=== PATIENT | female | born 1935 | race Caucasian/White ===

== ENCOUNTER 2017-06-06 16:36 | Observation (INO) | payer OTHER ==
--- NOTE | 2017-06-06 18:06 | RAD ---
Examination: AP chest History: Chest pain SOB Findings: Normal heart size with essentially clear lungs and pleural spaces. Diffuse density at the r ight lung base is considered to be an artifact. Severe right shoulder arthropathy. Impression: No acute abnormality demonstrated. Reported By:
[2017-06-06 18:14] LABS: BASOPHILS % (AUTO) 0.4 % (0.2-1.0); EOSINOPHILS % (AUTO) 0.1 % (0.9-2.9); HEMATOCRIT 42.9 % (36.0-47.0); LYMPHOCYTES # (AUTO) 0.7 X10^3/uL (1.3-2.9); LYMPHOCYTES % (AUTO) 6.7 % (21.0-51.0); MEAN CORPUSCULAR HEMOGLOBIN 28.3 pg (27.0-34.0); MEAN CORPUSCULAR HGB CONC 34.9 g/dL (33.0-35.0); MEAN PLATELET VOLUME 8.2 fL (7.4-11.0); MONOCYTES # (AUTO) 0.1 x10^3/uL (0.3-0.8); MONOCYTES % (AUTO) 0.8 % (0.0-13.0); NEUTROPHILS # (AUTO) 9.4 x10^3/uL (2.2-4.8); PLATELET COUNT 351 X10^3/uL (150.0-450.0); RED CELL DISTRIBUTION WIDTH 13.8 % (11.6-16.5); WHITE BLOOD COUNT 10.2 X10^3/uL (3.6-10.0)
[2017-06-06 18:29] LABS: PLATELET MORPHOLOGY COMMENT NORMAL (NORMAL)
[2017-06-06 19:01] LABS: TROPONIN I < 0.02 ng/mL (0-1.5); eGFR BLACK RACES > 60 (>60)
[2017-06-06] MEDS: COZAAR PO SCH (19:11)
[2017-06-06] MEDS: NS 1000 ML 1,000 ML IV SCH (19:12)
[2017-06-06] MEDS: PLAVIX PO SCH (19:20)
[2017-06-06 19:23] LABS: ALANINE AMINOTRANSFERASE 16 Units/L (12-78); ALBUMIN 4.1 g/dL (3.4-5.0); ALKALINE PHOSPHATASE 126 Units/L (46-116); ASPARTATE AMINO TRANSFERASE 18 Units/L (15-37); BLOOD UREA NITROGEN 16 mg/dL (7-18); CALCIUM 9.9 mg/dL (8.5-10.1); CARBON DIOXIDE 21.9 mmol/L (21-32); CHLORIDE 97 mmol/L (98-107); CKMB % 1.9 % (<4); COR NA(FOR HYPERGLY) 135 mmol/L (136-145); CREATINE KINASE 52 Units/L (26-192); CREATINE KINASE MB < 1.0 ng/mL (0-4.0); CREATININE 1.09 mg/dL (0.55-1.02); SODIUM 134 mmol/L (136-145); TOTAL PROTEIN 8.1 g/dL (6.4-8.2); eGFR NON BLACK RACES 51 (>60)
[2017-06-06 19:29] VITALS: BMI 23.1
[2017-06-06] MEDS: ECOTRIN TAB 325 MG PO SCH (19:44)
[2017-06-06] MEDS: HYDROCHLOROTHIAZIDE 12.5 MG CAP PO SCH (19:47)
[2017-06-06] MEDS: PEPCID TAB 20 MG PO SCH (20:16)
[2017-06-06 21:57] LABS: CKMB % 2.1 % (<4); CREATINE KINASE 47 Units/L (26-192); CREATINE KINASE MB < 1.0 ng/mL (0-4.0); TROPONIN I < 0.02 ng/mL (0-1.5)
[2017-06-06 23:53] LABS: BILIRUBIN,URINE NEGATIVE (NEGATIVE); BLOOD/HEMOGLOBIN,URINE 2+ (NEGATIVE); GLUCOSE, URINE 3+ (NEGATIVE); KETONES,URINE 3+ (NEGATIVE); LEUKOCYTE ESTERASE ,URINE 1+ (NEGATIVE); NITRITES,URINE NEGATIVE (NEGATIVE); PROTEIN,URINE NEGATIVE (NEGATIVE); UROBILINOGEN,URINE NORMAL (NORMAL)
[2017-06-06 23:57] LABS: APPEARANCE,URINE SLIGHTLY HAZY (CLEAR); BACTERIA,URINE 3+ /HPF (NEGATIVE); COLOR,URINE YELLOW (YELLOW); SQUAMOUS EPITHELIAL CELL,UR FEW /HPF (NEGATIVE)
[2017-06-07 01:46] LABS: CRYPTOSPORIDIUM PARVUM ANTIGEN NEGATIVE (NEGATIVE); GIARDIA LAMBLIA ANTIGEN NEGATIVE (NEGATIVE); STOOL FOR WBC NEGATIVE (NEGATIVE)
[2017-06-07 02:18] LABS: CKMB % 2.4 % (<4); CREATINE KINASE 50 Units/L (26-192); CREATINE KINASE MB 1.2 ng/mL (0-4.0); TROPONIN I < 0.02 ng/mL (0-1.5)
[2017-06-07 05:27] LABS: BASOPHILS % (AUTO) 0.1 % (0.2-1.0); HEMATOCRIT 37.9 % (36.0-47.0); LYMPHOCYTES % (AUTO) 14.9 % (21.0-51.0); MEAN CORPUSCULAR HEMOGLOBIN 27.9 pg (27.0-34.0); MEAN CORPUSCULAR HGB CONC 34.2 g/dL (33.0-35.0); MEAN CORPUSCULAR VOLUME 81.5 fL (80.0-100.0); MEAN PLATELET VOLUME 8.2 fL (7.4-11.0); MONOCYTES # (AUTO) 0.2 x10^3/uL (0.3-0.8); MONOCYTES % (AUTO) 3.2 % (0.0-13.0); NEUTROPHILS # (AUTO) 5.7 x10^3/uL (2.2-4.8); NEUTROPHILS % (AUTO) 81.8 % (42.0-75.0); PLATELET COUNT 312 X10^3/uL (150.0-450.0); RED BLOOD COUNT 4.66 X10^6/uL (3.5-5.4); RED CELL DISTRIBUTION WIDTH 13.4 % (11.6-16.5)
[2017-06-07 05:46] LABS: ALANINE AMINOTRANSFERASE 14 Units/L (12-78); ALBUMIN 3.1 g/dL (3.4-5.0); ALKALINE PHOSPHATASE 100 Units/L (46-116); ASPARTATE AMINO TRANSFERASE 16 Units/L (15-37); BLOOD UREA NITROGEN 18 mg/dL (7-18); CALCIUM 8.5 mg/dL (8.5-10.1); CARBON DIOXIDE 21.9 mmol/L (21-32); CHLORIDE 98 mmol/L (98-107); CHOL/HDL RATIO 3.1 (0.0-5.0); CHOLESTEROL 179 mg/dL (0-200); COR CA(FOR HYPOALB) 9.2 mg/dL (8.5-10.1); COR NA(FOR HYPERGLY) 137 mmol/L (136-145); CREATININE 1.03 mg/dL (0.55-1.02); HDL CHOLESTEROL 57 mg/dL (40-60); SODIUM 132 mmol/L (136-145); TOTAL PROTEIN 6.5 g/dL (6.4-8.2); TRIGLYCERIDES 41 mg/dL (0-150); eGFR BLACK RACES > 60 (>60); eGFR NON BLACK RACES 55 (>60)
[2017-06-07] MEDS: NS 1000 ML 1,000 ML IV SCH ×3 (07:48→21:02)
[2017-06-07] MEDS: HYDROCHLOROTHIAZIDE 12.5 MG CAP PO SCH (09:44)
[2017-06-07] MEDS: ECOTRIN TAB 325 MG PO SCH (09:44)
[2017-06-07] MEDS: PEPCID TAB 20 MG PO SCH ×2 (09:44→20:55)
[2017-06-07] MEDS: COZAAR PO SCH (09:44)
[2017-06-07] MEDS: PLAVIX PO SCH (09:45)
[2017-06-07] MEDS: LEVAQUIN PREMIX IV 750 MG 750 MG/150 ML BAG IV SCH (10:06)
[2017-06-07] MEDS: MUCINEX DM PO SCH ×2 (10:06→20:55)
--- NOTE | 2017-06-07 10:42 | RAD ---
History: Chest pain and shortness of breath Study: Portable upright AP chest Comparison: Yesterday Findings: Reported By:
[2017-06-07] MEDS: DUONEB 0.5 MG/3 MG NEB SCH ×4 (11:08→20:33)
[2017-06-07] MEDS: AMARYL TAB 4 MG PO SCH ×2 (11:12→20:55)
[2017-06-07] MEDS ORDERED: PATIENT'S HOME MEDICATION (Albuterol Sulfate [Proair Hfa] 1 PUFF) INH SCH (12:00)
[2017-06-07] MEDS: FORTAZ or TAZICEF INJ 1 GM in NS 50 ML IV 50 ML IV SCH ×3 (13:43→20:59)
[2017-06-07] MEDS ORDERED: GLUCOPHAGE ONE (19:19)
[2017-06-07] MEDS ORDERED: GLUCOPHAGE PO SCH (21:00)
[2017-06-07] MEDS ORDERED: ZOCOR TAB 20 MG PO SCH (21:00)
[2017-06-07] MEDS ORDERED: PATIENT'S HOME MEDICATION (Metformin Hcl [Metformin Hcl] 1 TAB) PO SCH (21:00)
[2017-06-08] MEDS: FORTAZ or TAZICEF INJ 1 GM in NS 50 ML IV 50 ML IV SCH ×2 (05:09→15:51)
[2017-06-08 05:38] LABS: BASOPHILS % (AUTO) 0.4 % (0.2-1.0); EOSINOPHILS # (AUTO) 0.1 x10^3/uL (0.0-0.2); EOSINOPHILS % (AUTO) 1.3 % (0.9-2.9); LYMPHOCYTES # (AUTO) 2.9 X10^3/uL (1.3-2.9); LYMPHOCYTES % (AUTO) 34.7 % (21.0-51.0); MEAN CORPUSCULAR HGB CONC 34.2 g/dL (33.0-35.0); MEAN CORPUSCULAR VOLUME 81.9 fL (80.0-100.0); MEAN PLATELET VOLUME 8.2 fL (7.4-11.0); MONOCYTES # (AUTO) 0.7 x10^3/uL (0.3-0.8); MONOCYTES % (AUTO) 7.8 % (0.0-13.0); NEUTROPHILS # (AUTO) 4.7 x10^3/uL (2.2-4.8); NEUTROPHILS % (AUTO) 55.8 % (42.0-75.0); PLATELET COUNT 270 X10^3/uL (150.0-450.0); RED BLOOD COUNT 4.28 X10^6/uL (3.5-5.4); RED CELL DISTRIBUTION WIDTH 13.8 % (11.6-16.5); WHITE BLOOD COUNT 8.4 X10^3/uL (3.6-10.0)
[2017-06-08 05:57] LABS: ALANINE AMINOTRANSFERASE 18 Units/L (12-78); ALBUMIN 2.9 g/dL (3.4-5.0); ALKALINE PHOSPHATASE 79 Units/L (46-116); ASPARTATE AMINO TRANSFERASE 15 Units/L (15-37); BLOOD UREA NITROGEN 17 mg/dL (7-18); CALCIUM 8.6 mg/dL (8.5-10.1); CHLORIDE 103 mmol/L (98-107); COR CA(FOR HYPOALB) 9.5 mg/dL (8.5-10.1); COR NA(FOR HYPERGLY) 138 mmol/L (136-145); CREATININE 1.03 mg/dL (0.55-1.02); SODIUM 137 mmol/L (136-145); eGFR BLACK RACES > 60 (>60); eGFR NON BLACK RACES 55 (>60)
--- NOTE | 2017-06-08 08:30 | RAD ---
HISTORY: Chest pain, shortness of breath Study: Chest AP portable Comparison: 06/07/2017 Findings: The heart is minimally enlarged. No congestive heart failure is noted. The rene are normal. The aorta is calcified. The lung steel are clear. The bony thorax is unremarkable with the exception of chron ic rotator cuff disease on the right. IMPRESSION: No significant acute pulmonary abnormality identified Reported By:
[2017-06-08] MEDS: DUONEB 0.5 MG/3 MG NEB SCH ×2 (08:50→12:01)
[2017-06-08] MEDS: PLAVIX PO SCH (09:26)
[2017-06-08] MEDS: LEVAQUIN PREMIX IV 750 MG 750 MG/150 ML BAG IV SCH (09:26)
[2017-06-08] MEDS: HYDROCHLOROTHIAZIDE 12.5 MG CAP PO SCH (09:26)
[2017-06-08] MEDS: AMARYL TAB 4 MG PO SCH (09:28)
[2017-06-08] MEDS: COZAAR PO SCH (09:28)
[2017-06-08] MEDS: ECOTRIN TAB 325 MG PO SCH (09:28)
[2017-06-08] MEDS: PEPCID TAB 20 MG PO SCH (09:29)
[2017-06-08] MEDS: MUCINEX DM PO SCH (09:30)
[2017-06-08] MEDS ORDERED: LEVAQUIN TAB 750 MG PO ONE (10:16)
--- NOTE | 2017-06-08 10:47 | DR.UPDATE ---
H&P Update History and Physical Update: WAS SEEN IN THE OFFICE ON 06/06/17. A H&P WAS COMPLETED PRIOR TO ADMISSION. PATIENT HAS BEEN SEEN AND EXAMINED WITH NO CHANGES NOTED TO H&P. Changes noted: NO Yes with the following:
[2017-06-08] MEDS: NS 1000 ML 1,000 ML IV SCH (11:00)
[2017-06-08 12:26] VITALS: BP 139/65
== END 2017-06-08 16:10 | disposition home or self-care (01) ==
LOC: UNDOADMOB 16:36 → MED/SURG 16:36
PROVIDERS: ADMIT Internal Medicine; ATTEND Internal Medicine
DX: R07.89 Other chest pain (principal); E11.65 Type 2 diabetes mellitus with hyperglycemia; R94.31 Abnormal electrocardiogram [ECG] [EKG]
CPT/HCPCS: 36415; 71045; 80053; 80061; 81001; 82270; 82550; 82553; 83630; 84484; 85025; 85610; 85730; 87040; 87045; 87070; 87205; 87328; 87329; 87336; 87427; 87493; 87899; 93005; 93306; 94640; 94760; A4216; A4222; G0378; J0713; J1956; J7620

== ENCOUNTER 2017-06-10 15:51 | Observation (INO) | payer OTHER ==
[2017-06-10] MEDS ORDERED: NS 1/2 1000 ML IV 1,000 ML IV ONE (17:10)
[2017-06-10] MEDS ORDERED: DUONEB 0.5 MG/3 MG ONE (17:20)
[2017-06-10] MEDS: LEVAQUIN PREMIX IV 750 MG 750 MG/150 ML BAG IV SCH (17:21)
[2017-06-10] MEDS: NS 1/2 1000 ML IV 1,000 ML IV SCH (17:21)
[2017-06-10] MEDS: DUONEB 0.5 MG/3 MG NEB SCH ×2 (17:40→21:35)
[2017-06-10 17:55] LABS: ALANINE AMINOTRANSFERASE 18 Units/L (12-78); ALBUMIN 3.8 g/dL (3.4-5.0); ALKALINE PHOSPHATASE 99 Units/L (46-116); ASPARTATE AMINO TRANSFERASE 21 Units/L (15-37); BLOOD UREA NITROGEN 14 mg/dL (7-18); CALCIUM 9.3 mg/dL (8.5-10.1); CARBON DIOXIDE 26.3 mmol/L (21-32); CHLORIDE 100 mmol/L (98-107); COR NA(FOR HYPERGLY) 137 mmol/L (136-145); SODIUM 137 mmol/L (136-145); TOTAL PROTEIN 7.3 g/dL (6.4-8.2); eGFR BLACK RACES 55 (>60); eGFR NON BLACK RACES 46 (>60)
--- NOTE | 2017-06-10 18:18 | RAD ---
Examination: Chest, PA and lateral views History: Wheezing, pneumonia Comparison 06/08/2017 Findings: Continued normal heart size with clear lungs, arteriosclerotic aorta, clear pleural spaces. A tubular structure projected in the heart is consistent with coronary arteriosclerosis and/or stent placement. Impression: No acute chest findings, see above. Reported By:
[2017-06-10 18:19] LABS: BASOPHILS # (AUTO) 0.1 X10^3/uL (0.0-0.1); BASOPHILS % (AUTO) 0.6 % (0.2-1.0); EOSINOPHILS # (AUTO) 0.4 x10^3/uL (0.0-0.2); EOSINOPHILS % (AUTO) 4.9 % (0.9-2.9); HEMATOCRIT 36.8 % (36.0-47.0); HEMOGLOBIN 12.7 g/dL (12.0-16.0); LYMPHOCYTES # (AUTO) 2.9 X10^3/uL (1.3-2.9); LYMPHOCYTES % (AUTO) 32.1 % (21.0-51.0); MEAN CORPUSCULAR HEMOGLOBIN 27.9 pg (27.0-34.0); MEAN CORPUSCULAR HGB CONC 34.5 g/dL (33.0-35.0); MEAN CORPUSCULAR VOLUME 80.8 fL (80.0-100.0); MEAN PLATELET VOLUME 7.5 fL (7.4-11.0); MONOCYTES # (AUTO) 0.6 x10^3/uL (0.3-0.8); MONOCYTES % (AUTO) 6.7 % (0.0-13.0); NEUTROPHILS % (AUTO) 55.7 % (42.0-75.0); PLATELET COUNT 236 X10^3/uL (150.0-450.0); RED BLOOD COUNT 4.55 X10^6/uL (3.5-5.4); RED CELL DISTRIBUTION WIDTH 13.8 % (11.6-16.5)
[2017-06-10] MEDS: MUCINEX DM PO SCH ×2 (20:31→21:46)
[2017-06-10] MEDS: FORTAZ or TAZICEF INJ 1 GM in NS 100 ML IV + SPIKE MINIBAG* 100 ML IV SCH ×2 (20:31→21:47)
[2017-06-10] MEDS ORDERED: NS 100 ML IV + SPIKE MINIBAG* 100 ML IV ONE (21:44)
[2017-06-11] MEDS: DUONEB 0.5 MG/3 MG NEB SCH ×6 (00:35→20:29)
[2017-06-11] MEDS: FORTAZ or TAZICEF INJ 1 GM in NS 100 ML IV + SPIKE MINIBAG* 100 ML IV SCH ×3 (05:02→21:00)
[2017-06-11 05:48] LABS: CALCIUM 8.4 mg/dL (8.5-10.1); CARBON DIOXIDE 27.1 mmol/L (21-32); COR CA(FOR HYPOALB) 9.2 mg/dL (8.5-10.1); CREATININE 1.22 mg/dL (0.55-1.02)
[2017-06-11 05:55] LABS: BASOPHILS % (AUTO) 0.4 % (0.2-1.0); EOSINOPHILS # (AUTO) 0.3 x10^3/uL (0.0-0.2); EOSINOPHILS % (AUTO) 3.4 % (0.9-2.9); HEMATOCRIT 35.6 % (36.0-47.0); HEMOGLOBIN 12.6 g/dL (12.0-16.0); LYMPHOCYTES # (AUTO) 2.2 X10^3/uL (1.3-2.9); LYMPHOCYTES % (AUTO) 27.2 % (21.0-51.0); MEAN CORPUSCULAR HEMOGLOBIN 28.1 pg (27.0-34.0); MEAN CORPUSCULAR HGB CONC 35.3 g/dL (33.0-35.0); MEAN CORPUSCULAR VOLUME 79.8 fL (80.0-100.0); MEAN PLATELET VOLUME 7.9 fL (7.4-11.0); MONOCYTES # (AUTO) 0.8 x10^3/uL (0.3-0.8); MONOCYTES % (AUTO) 9.7 % (0.0-13.0); NEUTROPHILS # (AUTO) 4.9 x10^3/uL (2.2-4.8); NEUTROPHILS % (AUTO) 59.3 % (42.0-75.0); PLATELET COUNT 268 X10^3/uL (150.0-450.0); RED BLOOD COUNT 4.47 X10^6/uL (3.5-5.4); RED CELL DISTRIBUTION WIDTH 13.6 % (11.6-16.5); WHITE BLOOD COUNT 8.2 X10^3/uL (3.6-10.0)
[2017-06-11] MEDS ORDERED: K-LYTE EFFERVESCENT PO PRN (06:39)
[2017-06-11] MEDS ORDERED: POTASSIUM CHL 40 MEQ/NS 0.45% 500 ML IV PRN (06:39)
[2017-06-11] MEDS ORDERED: POTASSIUM CHL 60 MEQ/NS 0.45% 500 ML IV PRN (06:39)
[2017-06-11] MEDS ORDERED: K-RIDER 10 MEQ/NS 100 ML 10 MEQ/100 ML BAG IV PRN (06:39)
[2017-06-11] MEDS ORDERED: MAGNESIUM SULFATE 1 GM/100 mL PREMIX 1 GM/100 ML BAG IV PRN (06:39)
[2017-06-11] MEDS ORDERED: POTASSIUM CHLORIDE LIQ 20 MEQ UDC PO PRN (06:39)
[2017-06-11] MEDS ORDERED: MAG-OX TAB PO PRN (06:39)
[2017-06-11] MEDS ORDERED: ZOFRAN INJ 4 MG VIAL IVP PRN (07:03)
--- NOTE | 2017-06-11 07:11 | RAD ---
Examination: Portable AP chest History: SOB Comparison 06/10/2017 Findings: Continued normal heart size with essentially clear lungs. No definite pneumonia, pulmonary edema or large pleural effusion. Impression: No acute findings. Reported By:
[2017-06-11] MEDS: MUCINEX DM PO SCH ×2 (08:18→20:56)
[2017-06-11] MEDS: LEVAQUIN PREMIX IV 750 MG 750 MG/150 ML BAG IV SCH (08:18)
[2017-06-11] MEDS ORDERED: PATIENT'S HOME MEDICATION (Albuterol Sulfate [Proair Hfa] 1 PUFF) PO SCH (09:00)
[2017-06-11] MEDS: PLAVIX PO SCH (09:44)
[2017-06-11] MEDS: ASPIRIN EC 81 MG PO SCH (09:44)
[2017-06-11] MEDS: HYDROCHLOROTHIAZIDE 12.5 MG CAP PO SCH (09:44)
[2017-06-11] MEDS: COZAAR PO SCH (09:44)
[2017-06-11] MEDS: AMARYL TAB 4 MG PO SCH ×2 (09:44→20:56)
[2017-06-11] MEDS: SOLU-Medrol 40 MG VIAL IVP SCH ×3 (10:24→21:01)
[2017-06-11] MEDS: NS 1/2 1000 ML IV 1,000 ML IV SCH ×2 (10:24→22:16)
[2017-06-11] MEDS ORDERED: NS 100 ML IV + SPIKE MINIBAG* 100 ML IV ONE (15:06)
[2017-06-11] MEDS: HumuLIN R SUBCUT PRN ×2 (18:35→20:58)
[2017-06-11] MEDS ORDERED: GLUCOPHAGE ONE (19:36)
[2017-06-11] MEDS: SNACK - Diabetic Appropriate PO SCH (20:54)
[2017-06-11] MEDS: ZOCOR TAB 20 MG PO SCH (20:56)
[2017-06-11] MEDS: GLUCOPHAGE PO SCH (20:56)
[2017-06-12] MEDS: DUONEB 0.5 MG/3 MG NEB SCH ×6 (01:03→21:27)
[2017-06-12] MEDS ORDERED: NS 1/2 1000 ML IV 1,000 ML IV ONE (03:35)
[2017-06-12] MEDS: FORTAZ or TAZICEF INJ 1 GM in NS 100 ML IV + SPIKE MINIBAG* 100 ML IV SCH ×3 (05:37→21:00)
[2017-06-12] MEDS: SOLU-Medrol 40 MG VIAL IVP SCH ×2 (05:37→21:00)
[2017-06-12] MEDS: HumuLIN R SUBCUT PRN ×2 (05:38→12:07)
--- NOTE | 2017-06-12 06:20 | RAD ---
Examination: AP chest History: SOB pneumonia Comparison 06/11/2017 Findings: Continued normal and stable heart size. No developing pulmonary or pleural abnormality iden tified. Impression: No change; no acute findings. Reported By:
[2017-06-12 06:33] LABS: BASOPHILS % (AUTO) 0.1 % (0.2-1.0); HEMATOCRIT 35.4 % (36.0-47.0); HEMOGLOBIN 12.4 g/dL (12.0-16.0); LYMPHOCYTES # (AUTO) 0.6 X10^3/uL (1.3-2.9); LYMPHOCYTES % (AUTO) 6.7 % (21.0-51.0); MEAN CORPUSCULAR HEMOGLOBIN 27.9 pg (27.0-34.0); MEAN CORPUSCULAR HGB CONC 34.9 g/dL (33.0-35.0); MEAN CORPUSCULAR VOLUME 79.8 fL (80.0-100.0); MEAN PLATELET VOLUME 8.2 fL (7.4-11.0); MONOCYTES # (AUTO) 0.3 x10^3/uL (0.3-0.8); MONOCYTES % (AUTO) 2.9 % (0.0-13.0); NEUTROPHILS # (AUTO) 8.3 x10^3/uL (2.2-4.8); NEUTROPHILS % (AUTO) 90.3 % (42.0-75.0); PLATELET COUNT 257 X10^3/uL (150.0-450.0); RED BLOOD COUNT 4.43 X10^6/uL (3.5-5.4); RED CELL DISTRIBUTION WIDTH 13.5 % (11.6-16.5); WHITE BLOOD COUNT 9.2 X10^3/uL (3.6-10.0)
[2017-06-12 07:07] LABS: PLATELET MORPHOLOGY COMMENT NORMAL (NORMAL)
[2017-06-12 07:11] LABS: ALANINE AMINOTRANSFERASE 15 Units/L (12-78); ALBUMIN 3.1 g/dL (3.4-5.0); ALKALINE PHOSPHATASE 77 Units/L (46-116); ASPARTATE AMINO TRANSFERASE 15 Units/L (15-37); BLOOD UREA NITROGEN 13 mg/dL (7-18); CALCIUM 9.1 mg/dL (8.5-10.1); CARBON DIOXIDE 22.6 mmol/L (21-32); CHLORIDE 98 mmol/L (98-107); COR CA(FOR HYPOALB) 9.8 mg/dL (8.5-10.1); COR NA(FOR HYPERGLY) 136 mmol/L (136-145); CREATININE 0.99 mg/dL (0.55-1.02); SODIUM 133 mmol/L (136-145); TOTAL PROTEIN 6.2 g/dL (6.4-8.2); eGFR BLACK RACES > 60 (>60); eGFR NON BLACK RACES 57 (>60)
[2017-06-12] MEDS: LEVAQUIN PREMIX IV 750 MG 750 MG/150 ML BAG IV SCH (08:39)
[2017-06-12] MEDS: HYDROCHLOROTHIAZIDE 12.5 MG CAP PO SCH (08:40)
[2017-06-12] MEDS: MUCINEX DM PO SCH ×2 (08:40→20:42)
[2017-06-12] MEDS: ASPIRIN EC 81 MG PO SCH (08:40)
[2017-06-12] MEDS: COZAAR PO SCH (08:40)
[2017-06-12] MEDS: AMARYL TAB 4 MG PO SCH ×2 (08:41→20:43)
[2017-06-12] MEDS: PLAVIX PO SCH (08:41)
[2017-06-12] MEDS: NS 1/2 1000 ML IV 1,000 ML IV SCH (11:47)
--- NOTE | 2017-06-12 16:55 | DR.H&P ---
H&P - History & Physical for Day of: H&P Date: 06/10/17 - Chief Complaint Chief Complaint: cough, short of breath - Allergies Allergies/Adverse Reactions: Allergies Allergy/AdvReac Type Severity Reaction Status Date / Time atorvastatin [From Lipitor] Allergy Verified 06/06/17 18:00 codeine Allergy Verified 06/06/17 18:01 Penicillins Allergy Verified 06/06/17 18:00 ANY COUGH SYRUP Allergy Uncoded 06/06/17 18:02 - History of Present Illness History of Present Illness: presented to the hospital as a direct admission from our office. She presented with complaints of a persistent, productive cough and shortness of breath. She states that shortness of breath is worse on exertion or when lying down. Patient was recently discharged from the hospital for similar symptoms. She reports compliance with Levaquin, Mucinex , and breathing treatments, however, reports that symptoms have only worsened. On examination, patient noted with moderate shortness of breath. Heart regular in rate and rhythm. Bilateral lungs noted with expiratory wheezing throughout. She was noted with a productive cough. Sputum noted to be thick and yellow in color. Abdomen round, soft, and non-tender with normal bowel sounds noted in all quadrants. Normal range of motion noted to all extremities. We admitted patient to the hospital for further treatment and evaluation. We planned to start her on the pneumonia protocol on Levaquin 750mg iv daily, fortaz 1gm iv q8h, respiratory treatments, Mucinex DM 1 tab po bid, and NS at 75ml/hr. We will obtain labs and continue to monitor patient. On admission, vitals were 99.2, 79, 18, 96%RA, 118/56. Labs were obtained. Abnormal lab values include the following: Potassium 3.1, Creatinine 1.20, GFR(AA) 55, GFR(non) 46, Glucose 118. Blood cultures x2: Pending. Sputum Culture: Pending. Chest xray was obtained and reported No acute chest findings. We will follow up with AM labs and continue to monitor patient. - Past Medical History Past Medical History: Asthma, COPD, Coronary Artery Disease, Diabetes, Hypertension, [place], Sleep Apnea Additional Medical History: CATARACTS, GLAUCOMA, RETINA SURGERY, SKIN CANCER - Past Surgical History Surgical History: Appendectomy, Cholecystectomy Additional Surgical History: HERNAI REPAIR, SKIN CANCER REMOVED, BENIGN TUMOR REMOVED FROM LEGS AND ARMS, VEIN STRIPPED IN LEGS, HEART CATH WITH STENTS - Family History Family Medical History: Cancer, VT, Hypertension - Social History Does patient currently use any type of tobacco product: No Have you used tobacco products in the last 12 months: No Type of Tobacco Use: None How many years tobacco product used: 50 Does any household member use tobacco: No Alcohol Use: None Drug Use: None - Medications Home Medications: Albuterol Sulfate [Proair Hfa] 1 puff PO BID 06/10/17 [History Confirmed ] Guaifenesin/Dextromethorphan [Mucinex Dm ER 600-30 mg Tablet] 1 tab PO BID 06/10 [History Confirmed 06/10/17] - Review of Systems Constitutional: See HPI, Fever, Weakness Eyes: No Symptoms Reported ENT: Nose Congestion Respiratory: See HPI, Cough, Shortness of Breath, SOB with Excertion, Sputum, Wheezing Cardiovascular: No Symptoms Reported. denies: Chest Pain, See HPI, Palpitations , Orthopnea, Paroxysmal Noc. Dyspnea, Edema, Light Headedness, Other Gastrointestinal: No Symptoms Reported. denies: See HPI, Nausea, Vomiting, Abdominal Pain, Diarrhea, Constipation, Melena, Hematochezia, Other Genitourinary: No Symptoms Reported. denies: See HPI, Dysuria, Frequency, Incontinence, Hematuria, Retention, Other Musculoskeletal: No Symptoms Reported. denies: See HPI, Shoulder Pain, Arm Pain , Back Pain, Hand Pain, Leg Pain, Foot Pain, Neck Pain, Other Skin: No Symptoms Reported. denies: See HPI, Rash, Lesions, Jaundice, Bruising , Wound, Ecchymosis, Other Neurological: Weakness - Physical Exam Vital Signs: Temperature 98.1 F Pulse Rate [Left Brachial] 88 Pulse Rate 75 Respiratory Rate 20 Blood Pressure [Right Arm] 135/61 Blood Pressure [Left Arm] 141/63 Blood Pressure 139/65 O2 Sat by Pulse Oximetry 92 Oriented: Normal Eyes: Normal. negative: Blurred Vision, Diplopia, Discharge, Pain, Redness, Photophobia, Other Ear: Normal. negative: Right, Left, Swelling, Ecchymosis, Hemotypanum, Abrasion , Laceration Nose: Other (NASAL CONGESTION ) Throat: Normal Respiratory: Wheezes Throughout Cardiovascular: Normal. negative: S3, S4, Murmur : Normal. negative: Dysuria, Hematuria, Frequency Auscultation: Bowel Sounds: Normal. negative: Bruit, Absent, Increased, Decreased, High Pitched, Other Palpation: Normal. negative: Spleen Enlarged, Liver Enlarged, Mass Pulsatile, Other Tenderness: Normal. negative: Rebound, Guarding, Rigidity Skin: Normal. negative: Wound, Bruising Musculoskeletal: Normal Psychiatric: Normal Mood Description: Calm Affect: Normal Speech Pattern: Clear - Assessment/Plan (1) Bronchopneumonia Status: Acute Plan: PNEUMONIA PROTOCOL, VISHAL [place]OO[place], RESPIRATORY TX, MUCINEX DM, RESPIRATORY TX, CONTINUE TO MONITOR
[2017-06-12] MEDS ORDERED: GLUCOPHAGE ONE (19:28)
[2017-06-12] MEDS: GLUCOPHAGE PO SCH (20:42)
[2017-06-12] MEDS: MILK OF MAGNESIA PO SCH (20:42)
[2017-06-12] MEDS: COLACE CAP 100 MG PO SCH (20:42)
[2017-06-12] MEDS: SNACK - Diabetic Appropriate PO SCH (20:43)
[2017-06-12] MEDS: ZOCOR TAB 20 MG PO SCH (20:43)
[2017-06-13] MEDS: DUONEB 0.5 MG/3 MG NEB SCH ×6 (00:35→21:58)
[2017-06-13] MEDS ORDERED: NS 1/2 1000 ML IV 1,000 ML IV ONE ×2 (00:56→19:15)
[2017-06-13] MEDS: COLACE CAP 100 MG PO SCH ×4 (03:04→22:50)
[2017-06-13] MEDS: MILK OF MAGNESIA PO SCH ×4 (03:05→22:50)
[2017-06-13] MEDS: NS 1/2 1000 ML IV 1,000 ML IV SCH ×3 (03:06→19:29)
[2017-06-13] MEDS: FORTAZ or TAZICEF INJ 1 GM in NS 100 ML IV + SPIKE MINIBAG* 100 ML IV SCH ×3 (05:00→22:51)
[2017-06-13] MEDS: SOLU-Medrol 40 MG VIAL IVP SCH ×3 (05:01→22:51)
[2017-06-13] MEDS: HumuLIN R SUBCUT PRN ×4 (05:42→22:51)
[2017-06-13 05:46] LABS: BASOPHILS % (AUTO) 0.1 % (0.2-1.0); HEMATOCRIT 33.8 % (36.0-47.0); HEMOGLOBIN 11.6 g/dL (12.0-16.0); LYMPHOCYTES % (AUTO) 7.4 % (21.0-51.0); MEAN CORPUSCULAR HEMOGLOBIN 27.9 pg (27.0-34.0); MEAN CORPUSCULAR HGB CONC 34.3 g/dL (33.0-35.0); MEAN CORPUSCULAR VOLUME 81.2 fL (80.0-100.0); MEAN PLATELET VOLUME 8.1 fL (7.4-11.0); MONOCYTES # (AUTO) 0.5 x10^3/uL (0.3-0.8); MONOCYTES % (AUTO) 3.9 % (0.0-13.0); NEUTROPHILS # (AUTO) 11.5 x10^3/uL (2.2-4.8); NEUTROPHILS % (AUTO) 88.6 % (42.0-75.0); PLATELET COUNT 269 X10^3/uL (150.0-450.0); RED BLOOD COUNT 4.16 X10^6/uL (3.5-5.4)
[2017-06-13 05:56] LABS: ALANINE AMINOTRANSFERASE 14 Units/L (12-78); ALBUMIN 2.8 g/dL (3.4-5.0); ALKALINE PHOSPHATASE 66 Units/L (46-116); ASPARTATE AMINO TRANSFERASE 15 Units/L (15-37); BLOOD UREA NITROGEN 16 mg/dL (7-18); CALCIUM 8.7 mg/dL (8.5-10.1); CARBON DIOXIDE 26.1 mmol/L (21-32); CHLORIDE 98 mmol/L (98-107); COR CA(FOR HYPOALB) 9.7 mg/dL (8.5-10.1); COR NA(FOR HYPERGLY) 135 mmol/L (136-145); CREATININE 1.02 mg/dL (0.55-1.02); SODIUM 131 mmol/L (136-145); TOTAL PROTEIN 5.7 g/dL (6.4-8.2); eGFR BLACK RACES > 60 (>60); eGFR NON BLACK RACES 55 (>60)
--- NOTE | 2017-06-13 06:52 | RAD ---
HISTORY: Shortness of breath, pneumonia Study: Single-view chest Comparison: 06/12/2017. Findings: Trachea is midline. The heart size is upper normal with aortic uncoiling and aortic calcification. Mi ld hyperinflation of the lungs is present without infiltrate, CHF, pleural fluid or pneumothorax. Oss eous structures are intact. IMPRESSION: No acute cardiopulmonary disease. Reported By:
[2017-06-13] MEDS: LEVAQUIN PREMIX IV 750 MG 750 MG/150 ML BAG IV SCH (08:12)
[2017-06-13] MEDS: ASPIRIN EC 81 MG PO SCH (08:13)
[2017-06-13] MEDS: COZAAR PO SCH (08:13)
[2017-06-13] MEDS: AMARYL TAB 4 MG PO SCH ×2 (08:13→22:49)
[2017-06-13] MEDS: HYDROCHLOROTHIAZIDE 12.5 MG CAP PO SCH (08:13)
[2017-06-13] MEDS: MUCINEX DM PO SCH ×2 (08:13→22:50)
[2017-06-13] MEDS: PLAVIX PO SCH (08:14)
[2017-06-13 13:00] VITALS: BMI 27.4
--- NOTE | 2017-06-13 17:00 | PCM.PROG ---
Progress Note - Progress Note for Day of Date: 06/11/17 - Subjective Subjective: WAS A DIRECT ADMISSION FOR BRONCHOPNEUMONIA. TODAY, SHE IS ALERT AND ORIENTED, LYING IN BED ON MORNING ROUNDS. SHE CONTINUES WITH COMLAINTS OF PERSISTENT, PRODUCTIVE COUGH AND SHORTNESS OF BREATH. SPUTUM NOTED AT BEDSIDE IS THICK AND YELLOW IN COLOR. ON EXAMINATION, HEART IS REGULAR IN RATED AND RHYTHM. BILATERAL LUNGS CONTINUE WITH EXPIRATORY WHEEZES THROUGHOUT. SHE IS CURRENTLY UTILIZING OXYGEN VIA NASAL CANNUAL AT 2L/MIN. ABDOMEN IS ROUND , SOFT, AND NON-TENDER WITH NORMAL BOWEL SOUNDS NOTED IN ALL QUADRANTS. THERE IS NORMAL RANGE OF MOTION NOTED TO ALL EXTREMITIES. HER VITALS THIS MORNING ARE 98.0-84-18-98%-138/63. LABS WERE OBTAINED. ABNORMAL LAB VALUES INCLUDE THE FOLLOWING: HCT 35.6, SODIUM 134, POTASSIUM 3.1, CREATININE 1.22, GFR 45, GLUCOSE 116, CALCIUM 8.4, TOTAL PROTEIN 6.0, ALBUMIN 3.0. SPUTUM CULTURES AND BLOOD CULTURES ARE PENDING. TODAYS CHEST XRAY WAS STABLE. TODAY, WE WILL START SOLU-MEDROL 40MG IV Q8H. OTHERWISE, WE WILL CONTINUE WITH CURRENT PLAN OF CARE. WE PLAN TO FOLLOW UP WITH AM LABS AND CHEST XRAY AND CONTINUE TO MONITOR PATIENT. - Past Medical Family Social History Past Med/Fam/Surg Hx: No changes since H&P Allergies: Allergies atorvastatin [From Lipitor] Allergy (Verified 06/06/17 18:00) codeine Allergy (Verified 06/06/17 18:01) Penicillins Allergy (Verified 06/06/17 18:00) ANY COUGH SYRUP Allergy (Uncoded 06/06/17 18:02) - Review of Systems ROS: No change since H&P - Vital Signs and I&O's Vital Signs: Temperature 98.2 F Pulse Rate [Left Brachial] 91 Pulse Rate 84 Respiratory Rate 18 Blood Pressure [Right Arm] 150/67 Blood Pressure [Left Arm] 141/63 Blood Pressure 139/65 O2 Sat by Pulse Oximetry 94 Intake and Output: Intake & Output 06/11/17 06/12/17 06/13/17 06/14/17 11:59 11:59 11:59 11:59 Intake Total 1281 2588 2963 600 Balance 1281 2588 2963 600 - Physical Exam Oriented: Normal Eyes: Normal. negative: Blurred Vision, Diplopia, Discharge, Pain, Redness, Photophobia, Other Ear: Normal. negative: Right, Left, Swelling, Ecchymosis, Hemotypanum, Abrasion , Laceration Nose: Other (NASAL CONGESTION ) Throat: Normal Respiratory: Right, Left, Generalized, Wheezes Cardiovascular: Normal. negative: S3, S4, Murmur : Normal. negative: Dysuria, Hematuria, Frequency Auscultation: Bowel Sounds: Normal. negative: Bruit, Absent, Increased, Decreased, High Pitched, Other Palpation: Normal Tenderness: Normal. negative: Rebound, Guarding, Rigidity Skin: Normal. negative: Wound, Bruising Musculoskeletal: Normal Psychiatric: Normal Mood Description: Calm Affect: Normal Speech Pattern: Clear, Appropriate - Laboratory and Diagnostics Result Diagrams: 06/13/17 04:50 06/13/17 04:50 Labs: 06/10/17 17:17 Blood Blood Culture - Preliminary 06/10/17 17:10 Blood Blood Culture - Preliminary 06/10/17 17:26 Sputum - Expectorated Sputum Sputum Culture - Final 06/10/17 17:26 Sputum - Expectorated Sputum - Final Laboratory WBC 13.0 X10^3/uL (3.6-10.0) H 06/13/17 04:50 RBC 4.16 X10^6/uL (3.5-5.4) 06/13/17 04:50 Hgb 11.6 g/dL (12.0-16.0) L 06/13/17 04:50 Hct 33.8 % (36.0-47.0) L 06/13/17 04:50 MCV 81.2 fL (80.0-100.0) 06/13/17 04:50 MCH 27.9 pg (27.0-34.0) 06/13/17 04:50 MCHC 34.3 g/dL (33.0-35.0) 06/13/17 04:50 RDW 14.0 % (11.6-16.5) 06/13/17 04:50 Plt Count 269 X10^3/uL (150.0-450.0) 06/13/17 04:50 Plt Count Comment Adequate (ADEQUATE) 06/12/17 04:55 MPV 8.1 fL (7.4-11.0) 06/13/17 04:50 Neut % 88.6 % (42.0-75.0) H 06/13/17 04:50 Lymph % 7.4 % (21.0-51.0) L 06/13/17 04:50 [place] % 3.9 % (0.0-13.0) 06/13/17 04:50 Eos % 0.0 % (0.9-2.9) L 06/13/17 04:50 Baso % 0.1 % (0.2-1.0) L 06/13/17 04:50 Neut # 11.5 x10^3/uL (2.2-4.8) H 06/13/17 04:50 Lymph # 1.0 X10^3/uL (1.3-2.9) L 06/13/17 04:50 [place] # 0.5 x10^3/uL (0.3-0.8) 06/13/17 04:50 Eos # 0.0 x10^3/uL (0.0-0.2) 06/13/17 04:50 Baso # 0.0 X10^3/uL (0.0-0.1) 06/13/17 04:50 Absolute Nucleated RBC 0.0 /100WBC 06/13/17 04:50 Total Counted 100 06/12/17 04:55 Neutrophils % (Manual) 95 % (39-76) H 06/12/17 04:55 Lymphocytes % (Manual) 3 % (13-43) L 06/12/17 04:55 Monocytes % (Manual) 2 % (4-9) L 06/12/17 04:55 Plt Morphology Comment Normal (NORMAL) 06/12/17 04:55 RBC Morphology Normal (NORMAL) 06/12/17 04:55 Sodium 131 mmol/L (136-145) L 06/13/17 04:50 Corrected Sodium 135 mmol/L (136-145) L 06/13/17 04:50 Potassium 4.7 mmol/L (3.5-5.1) 06/13/17 04:50 Chloride 98 mmol/L (98-107) 06/13/17 04:50 Carbon Dioxide 26.1 mmol/L (21-32) 06/13/17 04:50 BUN 16 mg/dL (7-18) 06/13/17 04:50 Creatinine 1.02 mg/dL (0.55-1.02) 06/13/17 04:50 Est GFR (MDRD) Af Amer > 60 (>60) 06/13/17 04:50 Est GFR (MDRD) Non-Af 55 (>60) L 06/13/17 04:50 Glucose 253 mg/dL (65-99) H 06/13/17 04:50 POC Glucose (mg/dL) 244 mg/dL (65-99) H 06/13/17 10:38 Calcium 8.7 mg/dL (8.5-10.1) 06/13/17 04:50 Corrected Calcium 9.7 mg/dL (8.5-10.1) 06/13/17 04:50 Magnesium 1.8 mg/dL (1.7-2.9) 06/11/17 05:04 Total Bilirubin 0.30 mg/dL (0.2-1.0) 06/13/17 04:50 AST 15 Units/L (15-37) 06/13/17 04:50 ALT 14 Units/L (12-78) 06/13/17 04:50 Alkaline Phosphatase 66 Units/L (46-116) 06/13/17 04:50 Total Protein 5.7 g/dL (6.4-8.2) L 06/13/17 04:50 Albumin 2.8 g/dL (3.4-5.0) L 06/13/17 04:50 Globulin 2.9 g/dL (2.5-4.5) 06/13/17 04:50 Albumin/Globulin Ratio 1.0 Ratio (1.1-2.1) L 06/13/17 04:50 - Plan (1) Bronchopneumonia Status: Acute Plan: PNEUMONIA PROTOCOL, FORTAZ, LEVAQUIN, RESPIRATORY TX, MUCINEX DM, SOLU- MEDROL 40MG IV Q8H, RESPIRATORY TX, CONTINUE TO MONITOR (2) Diabetes Status: Chronic Qualifiers: Diabetes mellitus type: type 2 Diabetes mellitus complication status: without complication Diabetes mellitus half-way insulin use: with half-way use Qualified Code(s): E11.9 - Type 2 diabetes mellitus without complications ; Z79.4 - penitentiary (current) use of insulin; Z79.4 - termite technician (current) use of insulin; Z79.4 - penitentiary (current) use of insulin; Z79.4 - penitentiary ( current) use of insulin Plan: CONTINUE AMARYL, CONTINUE METFORMIN, MONITOR OTBS, HUMULIN R SLIDING SCALE , CONTINUE TO MONITOR (3) Coronary artery disease Status: Chronic Qualifiers: Coronary Disease-Associated Artery/Lesion type: [place] artery [place] vs. transplanted heart: [place] heart Associated angina: angina presence unspecified Qualified Code(s): I25.10 - Atherosclerotic heart disease of [place] coronary artery without angina pectoris Plan: CONTINUE PLAVIX, CONTINUE ASPIRIN, CONTINUE TO MONITOR (4) Asthma Status: Chronic Qualifiers: Asthma severity: unspecified severity Asthma persistence: intermittent Asthma complication type: unspecified Qualified Code(s): J45.20 - Mild intermittent asthma, uncomplicated Plan: CONTINUE RESPIRATORY TX, CONTINUE SUPPLEMENTAL OXYGEN, CONTINUE TO MONITOR (5) Hyperlipidemia Status: Chronic Qualifiers: Hyperlipidemia type: mixed hyperlipidemia Qualified Code(s): E78.2 - Mixed hyperlipidemia Plan: CONTINUE ZOCOR, CONTINUE TO MONITOR (6) Hypertension Status: Chronic Qualifiers: Hypertension type: essential hypertension Qualified Code(s): I10 - Essential (primary) hypertension Plan: CONTINUE COZAAR, CONTINUE HCTZ, CONTINUE TO MONITOR
[2017-06-13] MEDS ORDERED: GLUCOPHAGE ONE (20:13)
--- NOTE | 2017-06-13 20:15 | PCM.PROG ---
Progress Note - Progress Note for Day of Date: 06/12/17 - Subjective Subjective: WAS A DIRECT ADMISSION FOR BRONCHOPNEUMONIA. TODAY, SHE IS ALERT AND ORIENTED, LYING IN BED ON MORNING ROUNDS. SHE CONTINUES WITH COMLAINTS OF COUGH AND SHORTNESS OF BREATH. ON EXAMINATION, HEART IS REGULAR IN RATE AND RHYTHM. BILATERAL LUNGS CONTINUE WITH EXPIRATORY WHEEZES THROUGHOUT. SHE IS CURRENTLY UTILIZING OXYGEN VIA NASAL CANNUAL AT 2L/MIN. ABDOMEN IS ROUND , SOFT, AND NON-TENDER WITH NORMAL BOWEL SOUNDS NOTED IN ALL QUADRANTS. THERE IS NORMAL RANGE OF MOTION NOTED TO ALL EXTREMITIES. HER VITALS THIS MORNING ARE 98.4-93-20-94%-131/71. LABS WERE OBTAINED. ABNORMAL LAB VALUES INCLUDE THE FOLLOWING: HGB 35.4, HCT 79.8, SODIUM 133, GFR 57, GLUCOSE 237, TOTAL PROTEIN 6.2, ALBUMIN 3.1. SPUTUM CULTURES AND BLOOD CULTURES ARE PENDING. TODAYS CHEST XRAY CONTINUES TO BE STABLE. ELELVATED GLUCOSE LEVELS MAY BE DUE TO THE ADMINISTRATION OF THE SOLU-MEDROL. TODAY, WE WILL HOLD HER 2PM DOSE OF SOLU- MEDROL, AND RESTART SOLUMEDROL 20MG IV Q8H AT 10PM. OTHERWISE, WE WILL CONTINUE WITH CURRENT PLAN OF CARE. WE PLAN TO FOLLOW UP WITH AM LABS AND CHEST XRAY AND CONTINUE TO MONITOR PATIENT. - Past Medical Family Social History Past Med/Fam/Surg Hx: No changes since H&P Allergies: Allergies atorvastatin [From Lipitor] Allergy (Verified 06/06/17 18:00) codeine Allergy (Verified 06/06/17 18:01) Penicillins Allergy (Verified 06/06/17 18:00) ANY COUGH SYRUP Allergy (Uncoded 06/06/17 18:02) - Review of Systems ROS: No change since H&P - Vital Signs and I&O's Vital Signs: Temperature 98.2 F Pulse Rate [Left Brachial] 91 Pulse Rate 80 Respiratory Rate 18 Blood Pressure [Right Arm] 150/67 Blood Pressure [Left Arm] 141/63 Blood Pressure 139/65 O2 Sat by Pulse Oximetry 94 Intake and Output: Intake & Output 06/11/17 06/12/17 06/13/17 06/14/17 11:59 11:59 11:59 11:59 Intake Total 1281 2588 2963 600 Balance 1281 2588 2963 600 - Physical Exam Oriented: Normal Eyes: Normal. negative: Blurred Vision, Diplopia, Discharge, Pain, Redness, Photophobia, Other Ear: Normal. negative: Right, Left, Swelling, Ecchymosis, Hemotypanum, Abrasion , Laceration Nose: Other (NASAL CONGESTION ) Throat: Normal Respiratory: Right, Left, Generalized, Wheezes Cardiovascular: Normal. negative: S3, S4, Murmur : Normal. negative: Dysuria, Hematuria, Frequency Auscultation: Bowel Sounds: Normal. negative: Bruit, Absent, Increased, Decreased, High Pitched, Other Palpation: Normal Tenderness: Normal. negative: Rebound, Guarding, Rigidity Skin: Normal. negative: Wound, Bruising Musculoskeletal: Normal Psychiatric: Normal Mood Description: Calm Affect: Normal Speech Pattern: Clear, Appropriate - Laboratory and Diagnostics Result Diagrams: 06/13/17 04:50 06/13/17 04:50 Labs: 06/10/17 17:17 Blood Blood Culture - Preliminary 06/10/17 17:10 Blood Blood Culture - Preliminary 06/10/17 17:26 Sputum - Expectorated Sputum Sputum Culture - Final 06/10/17 17:26 Sputum - Expectorated Sputum - Final Laboratory WBC 13.0 X10^3/uL (3.6-10.0) H 06/13/17 04:50 RBC 4.16 X10^6/uL (3.5-5.4) 06/13/17 04:50 Hgb 11.6 g/dL (12.0-16.0) L 06/13/17 04:50 Hct 33.8 % (36.0-47.0) L 06/13/17 04:50 MCV 81.2 fL (80.0-100.0) 06/13/17 04:50 MCH 27.9 pg (27.0-34.0) 06/13/17 04:50 MCHC 34.3 g/dL (33.0-35.0) 06/13/17 04:50 RDW 14.0 % (11.6-16.5) 06/13/17 04:50 Plt Count 269 X10^3/uL (150.0-450.0) 06/13/17 04:50 Plt Count Comment Adequate (ADEQUATE) 06/12/17 04:55 MPV 8.1 fL (7.4-11.0) 06/13/17 04:50 Neut % 88.6 % (42.0-75.0) H 06/13/17 04:50 Lymph % 7.4 % (21.0-51.0) L 06/13/17 04:50 [place] % 3.9 % (0.0-13.0) 06/13/17 04:50 Eos % 0.0 % (0.9-2.9) L 06/13/17 04:50 Baso % 0.1 % (0.2-1.0) L 06/13/17 04:50 Neut # 11.5 x10^3/uL (2.2-4.8) H 06/13/17 04:50 Lymph # 1.0 X10^3/uL (1.3-2.9) L 06/13/17 04:50 [place] # 0.5 x10^3/uL (0.3-0.8) 06/13/17 04:50 Eos # 0.0 x10^3/uL (0.0-0.2) 06/13/17 04:50 Baso # 0.0 X10^3/uL (0.0-0.1) 06/13/17 04:50 Absolute Nucleated RBC 0.0 /100WBC 06/13/17 04:50 Total Counted 100 06/12/17 04:55 Neutrophils % (Manual) 95 % (39-76) H 06/12/17 04:55 Lymphocytes % (Manual) 3 % (13-43) L 06/12/17 04:55 Monocytes % (Manual) 2 % (4-9) L 06/12/17 04:55 Plt Morphology Comment Normal (NORMAL) 06/12/17 04:55 RBC Morphology Normal (NORMAL) 06/12/17 04:55 Sodium 131 mmol/L (136-145) L 06/13/17 04:50 Corrected Sodium 135 mmol/L (136-145) L 06/13/17 04:50 Potassium 4.7 mmol/L (3.5-5.1) 06/13/17 04:50 Chloride 98 mmol/L (98-107) 06/13/17 04:50 Carbon Dioxide 26.1 mmol/L (21-32) 06/13/17 04:50 BUN 16 mg/dL (7-18) 06/13/17 04:50 Creatinine 1.02 mg/dL (0.55-1.02) 06/13/17 04:50 Est GFR (MDRD) Af Amer > 60 (>60) 06/13/17 04:50 Est GFR (MDRD) Non-Af 55 (>60) L 06/13/17 04:50 Glucose 253 mg/dL (65-99) H 06/13/17 04:50 POC Glucose (mg/dL) 177 mg/dL (65-99) H 06/13/17 17:15 Calcium 8.7 mg/dL (8.5-10.1) 06/13/17 04:50 Corrected Calcium 9.7 mg/dL (8.5-10.1) 06/13/17 04:50 Magnesium 1.8 mg/dL (1.7-2.9) 06/11/17 05:04 Total Bilirubin 0.30 mg/dL (0.2-1.0) 06/13/17 04:50 AST 15 Units/L (15-37) 06/13/17 04:50 ALT 14 Units/L (12-78) 06/13/17 04:50 Alkaline Phosphatase 66 Units/L (46-116) 06/13/17 04:50 Total Protein 5.7 g/dL (6.4-8.2) L 06/13/17 04:50 Albumin 2.8 g/dL (3.4-5.0) L 06/13/17 04:50 Globulin 2.9 g/dL (2.5-4.5) 06/13/17 04:50 Albumin/Globulin Ratio 1.0 Ratio (1.1-2.1) L 06/13/17 04:50 - Plan (1) Bronchopneumonia Status: Acute Plan: PNEUMONIA PROTOCOL, FORTAZ, LEVAQUIN, RESPIRATORY TX, MUCINEX DM, SOLU- MEDROL 20MG IV Q8H, RESPIRATORY TX, CONTINUE TO MONITOR (2) Diabetes Status: Chronic Qualifiers: Diabetes mellitus type: type 2 Diabetes mellitus complication status: without complication Diabetes mellitus intermodal owner operator truck driver insulin use: with intermodal owner operator truck driver use Qualified Code(s): E11.9 - Type 2 diabetes mellitus without complications ; Z79.4 - custodial (current) use of insulin; Z79.4 - assistant terminal manager (current) use of insulin; Z79.4 - custodial (current) use of insulin; Z79.4 - custodial ( current) use of insulin Plan: CONTINUE AMARYL, CONTINUE METFORMIN, MONITOR OTBS, HUMULIN R SLIDING SCALE , CONTINUE TO MONITOR (3) Coronary artery disease Status: Chronic Qualifiers: Coronary Disease-Associated Artery/Lesion type: [place] artery [place] vs. transplanted heart: [place] heart Associated angina: angina presence unspecified Qualified Code(s): I25.10 - Atherosclerotic heart disease of [place] coronary artery without angina pectoris Plan: CONTINUE PLAVIX, CONTINUE ASPIRIN, CONTINUE TO MONITOR (4) Asthma Status: Chronic Qualifiers: Asthma severity: unspecified severity Asthma persistence: intermittent Asthma complication type: unspecified Qualified Code(s): J45.20 - Mild intermittent asthma, uncomplicated Plan: CONTINUE RESPIRATORY TX, CONTINUE SUPPLEMENTAL OXYGEN, CONTINUE TO MONITOR (5) Hyperlipidemia Status: Chronic Qualifiers: Hyperlipidemia type: mixed hyperlipidemia Qualified Code(s): E78.2 - Mixed hyperlipidemia Plan: CONTINUE ZOCOR, CONTINUE TO MONITOR (6) Hypertension Status: Chronic Qualifiers: Hypertension type: essential hypertension Qualified Code(s): I10 - Essential (primary) hypertension Plan: CONTINUE COZAAR, CONTINUE HCTZ, CONTINUE TO MONITOR
[2017-06-13] MEDS: SNACK - Diabetic Appropriate PO SCH (22:49)
[2017-06-13] MEDS: GLUCOPHAGE PO SCH (22:50)
[2017-06-13] MEDS: ZOCOR TAB 20 MG PO SCH (22:50)
[2017-06-14] MEDS: DUONEB 0.5 MG/3 MG NEB SCH ×3 (01:06→09:37)
[2017-06-14] MEDS ORDERED: NS 1/2 1000 ML IV 1,000 ML IV ONE (05:35)
[2017-06-14 06:13] LABS: BASOPHILS % (AUTO) 0 % (0.2-1.0); HEMATOCRIT 36.4 % (36.0-47.0); HEMOGLOBIN 12.8 g/dL (12.0-16.0); LYMPHOCYTES # (AUTO) 1.1 X10^3/uL (1.3-2.9); LYMPHOCYTES % (AUTO) 9.7 % (21.0-51.0); MEAN CORPUSCULAR HEMOGLOBIN 28.3 pg (27.0-34.0); MEAN CORPUSCULAR HGB CONC 35.1 g/dL (33.0-35.0); MEAN CORPUSCULAR VOLUME 80.9 fL (80.0-100.0); MEAN PLATELET VOLUME 8.2 fL (7.4-11.0); MONOCYTES # (AUTO) 0.5 x10^3/uL (0.3-0.8); MONOCYTES % (AUTO) 4.2 % (0.0-13.0); NEUTROPHILS # (AUTO) 9.5 x10^3/uL (2.2-4.8); NEUTROPHILS % (AUTO) 86.1 % (42.0-75.0); PLATELET COUNT 303 X10^3/uL (150.0-450.0); RED CELL DISTRIBUTION WIDTH 14.2 % (11.6-16.5)
[2017-06-14] MEDS: NS 1/2 1000 ML IV 1,000 ML IV SCH (06:34)
[2017-06-14] MEDS: SOLU-Medrol 40 MG VIAL IVP SCH (06:34)
[2017-06-14] MEDS: FORTAZ or TAZICEF INJ 1 GM in NS 100 ML IV + SPIKE MINIBAG* 100 ML IV SCH (06:34)
[2017-06-14] MEDS: HumuLIN R SUBCUT PRN (06:35)
[2017-06-14 06:36] LABS: ALANINE AMINOTRANSFERASE 18 Units/L (12-78); ALKALINE PHOSPHATASE 69 Units/L (46-116); ASPARTATE AMINO TRANSFERASE 15 Units/L (15-37); BLOOD UREA NITROGEN 15 mg/dL (7-18); CALCIUM 8.6 mg/dL (8.5-10.1); CARBON DIOXIDE 28.3 mmol/L (21-32); CHLORIDE 97 mmol/L (98-107); COR CA(FOR HYPOALB) 9.4 mg/dL (8.5-10.1); COR NA(FOR HYPERGLY) 137 mmol/L (136-145); CREATININE 0.97 mg/dL (0.55-1.02); SODIUM 135 mmol/L (136-145); TOTAL PROTEIN 6.1 g/dL (6.4-8.2); eGFR BLACK RACES > 60 (>60); eGFR NON BLACK RACES 58 (>60)
[2017-06-14] MEDS: MILK OF MAGNESIA PO SCH (08:17)
[2017-06-14] MEDS: COZAAR PO SCH (08:17)
[2017-06-14] MEDS: MUCINEX DM PO SCH (08:17)
[2017-06-14] MEDS: COLACE CAP 100 MG PO SCH (08:17)
[2017-06-14] MEDS: LEVAQUIN PREMIX IV 750 MG 750 MG/150 ML BAG IV SCH (08:17)
[2017-06-14] MEDS: HYDROCHLOROTHIAZIDE 12.5 MG CAP PO SCH (08:17)
[2017-06-14] MEDS: AMARYL TAB 4 MG PO SCH (08:18)
[2017-06-14] MEDS: PLAVIX PO SCH (08:18)
[2017-06-14] MEDS: ASPIRIN EC 81 MG PO SCH (08:18)
[2017-06-14 09:23] VITALS: BP 171/72
[2017-06-14] MEDS ORDERED: FLUVIRIN IM ONE ×2 (11:57→12:04)
--- NOTE | 2017-06-14 21:44 | PCM.PROG ---
Progress Note - Progress Note for Day of Date: 06/13/17 - Subjective Subjective: WAS A DIRECT ADMISSION FOR BRONCHOPNEUMONIA. TODAY, SHE IS ALERT AND ORIENTED, LYING IN BED ON MORNING ROUNDS. SHE CONTINUES WITH COMLAINTS OF A NON-PRODUCTIVE COUGH AND SHORTNESS OF BREATH. ON EXAMINATION, HEART IS REGULAR IN RATE AND RHYTHM. BILATERAL LUNGS ARE NOTED WITH DIMINISHED LUNG SOUNDS THROUGHOUT. SHE IS CURRENTLY UTILIZING OXYGEN VIA NASAL CANNUAL AT 2L/MIN. ABDOMEN IS ROUND, SOFT, AND NON-TENDER WITH NORMAL BOWEL SOUNDS NOTED IN ALL QUADRANTS. THERE IS NORMAL RANGE OF MOTION NOTED TO ALL EXTREMITIES. HER VITALS THIS MORNING ARE 97.6-94-20-95%-174/79. LABS WERE OBTAINED. ABNORMAL LAB VALUES INCLUDE THE FOLLOWING: WBC 13.0, HGB 11.6, HCT 33.8, SODIUM 131, GFR 55, GLUCOSE 253, TOTAL PROTEIN 5.7, ALBUMIN 2.8. SPUTUM CULTURES AND BLOOD CULTURES REPORT NO GROWTH. TODAYS CHEST XRAY REPORTED NO ACUTE CARDIOPULMONARY DISEASE. SHE CONTINUES ON IV ANTIBIOTICS AND RESPIRATORY TREATMENTS. WE WILL CONTINUE WITH CURRENT PLAN OF CARE TODAY. WE PLAN TO FOLLOW UP WITH AM LABS AND CHEST XRAY AND CONTINUE TO MONITOR PATIENT. IF PATIENT REMAINS STABLE, WE WILL PLAN FOR DISCHARGE TOMORROW. - Past Medical Family Social History Past Med/Fam/Surg Hx: No changes since H&P Allergies: Allergies atorvastatin [From Lipitor] Allergy (Verified 06/06/17 18:00) codeine Allergy (Verified 06/06/17 18:01) Penicillins Allergy (Verified 06/06/17 18:00) ANY COUGH SYRUP Allergy (Uncoded 06/06/17 18:02) - Review of Systems ROS: No change since H&P - Vital Signs and I&O's Vital Signs: Temperature 99.3 F Pulse Rate [Left Brachial] 75 Pulse Rate 77 Respiratory Rate 20 Blood Pressure [Right Arm] 171/72 Blood Pressure [Left Arm] 141/63 Blood Pressure 139/65 O2 Sat by Pulse Oximetry 96 Intake and Output: Intake & Output 06/12/17 06/13/17 06/14/17 06/15/17 11:59 11:59 11:59 11:59 Intake Total 2588 2963 1740 Balance 2588 2963 1740 - Physical Exam Oriented: Normal Eyes: Normal. negative: Blurred Vision, Diplopia, Discharge, Pain, Redness, Photophobia, Other Ear: Normal. negative: Right, Left, Swelling, Ecchymosis, Hemotypanum, Abrasion , Laceration Nose: Normal Throat: Normal Respiratory: Right, Left, Generalized Cardiovascular: Normal. negative: S3, S4, Murmur : Normal. negative: Dysuria, Hematuria, Frequency Auscultation: Bowel Sounds: Normal. negative: Bruit, Absent, Increased, Decreased, High Pitched, Other Palpation: Normal Tenderness: Normal. negative: Rebound, Guarding, Rigidity Skin: Normal. negative: Wound, Bruising Musculoskeletal: Normal Psychiatric: Normal Mood Description: Calm Affect: Normal Speech Pattern: Clear, Appropriate - Laboratory and Diagnostics Result Diagrams: 06/14/17 05:40 06/14/17 05:40 Labs: 06/10/17 17:17 Blood Blood Culture - Preliminary 06/10/17 17:10 Blood Blood Culture - Preliminary 06/10/17 17:26 Sputum - Expectorated Sputum Sputum Culture - Final 06/10/17 17:26 Sputum - Expectorated Sputum - Final Laboratory WBC 11.0 X10^3/uL (3.6-10.0) H 06/14/17 05:40 RBC 4.50 X10^6/uL (3.5-5.4) 06/14/17 05:40 Hgb 12.8 g/dL (12.0-16.0) 06/14/17 05:40 Hct 36.4 % (36.0-47.0) 06/14/17 05:40 MCV 80.9 fL (80.0-100.0) 06/14/17 05:40 MCH 28.3 pg (27.0-34.0) 06/14/17 05:40 MCHC 35.1 g/dL (33.0-35.0) H 06/14/17 05:40 RDW 14.2 % (11.6-16.5) 06/14/17 05:40 Plt Count 303 X10^3/uL (150.0-450.0) 06/14/17 05:40 Plt Count Comment Adequate (ADEQUATE) 06/12/17 04:55 MPV 8.2 fL (7.4-11.0) 06/14/17 05:40 Neut % 86.1 % (42.0-75.0) H 06/14/17 05:40 Lymph % 9.7 % (21.0-51.0) L 06/14/17 05:40 [place] % 4.2 % (0.0-13.0) 06/14/17 05:40 Eos % 0.0 % (0.9-2.9) L 06/14/17 05:40 Baso % 0 % (0.2-1.0) L 06/14/17 05:40 Neut # 9.5 x10^3/uL (2.2-4.8) H 06/14/17 05:40 Lymph # 1.1 X10^3/uL (1.3-2.9) L 06/14/17 05:40 [place] # 0.5 x10^3/uL (0.3-0.8) 06/14/17 05:40 Eos # 0.0 x10^3/uL (0.0-0.2) 06/14/17 05:40 Baso # 0.0 X10^3/uL (0.0-0.1) 06/14/17 05:40 Absolute Nucleated RBC 0.1 /100WBC 06/14/17 05:40 Total Counted 100 06/12/17 04:55 Neutrophils % (Manual) 95 % (39-76) H 06/12/17 04:55 Lymphocytes % (Manual) 3 % (13-43) L 06/12/17 04:55 Monocytes % (Manual) 2 % (4-9) L 06/12/17 04:55 Plt Morphology Comment Normal (NORMAL) 06/12/17 04:55 RBC Morphology Normal (NORMAL) 06/12/17 04:55 Sodium 135 mmol/L (136-145) L 06/14/17 05:40 Corrected Sodium 137 mmol/L (136-145) 06/14/17 05:40 Potassium 4.4 mmol/L (3.5-5.1) 06/14/17 05:40 Chloride 97 mmol/L (98-107) L 06/14/17 05:40 Carbon Dioxide 28.3 mmol/L (21-32) 06/14/17 05:40 BUN 15 mg/dL (7-18) 06/14/17 05:40 Creatinine 0.97 mg/dL (0.55-1.02) 06/14/17 05:40 Est GFR (MDRD) Af Amer > 60 (>60) 06/14/17 05:40 Est GFR (MDRD) Non-Af 58 (>60) L 06/14/17 05:40 Glucose 202 mg/dL (65-99) H 06/14/17 05:40 POC Glucose (mg/dL) 178 mg/dL (65-99) H 06/14/17 05:40 Calcium 8.6 mg/dL (8.5-10.1) 06/14/17 05:40 Corrected Calcium 9.4 mg/dL (8.5-10.1) 06/14/17 05:40 Magnesium 1.8 mg/dL (1.7-2.9) 06/11/17 05:04 Total Bilirubin 0.30 mg/dL (0.2-1.0) 06/14/17 05:40 AST 15 Units/L (15-37) 06/14/17 05:40 ALT 18 Units/L (12-78) 06/14/17 05:40 Alkaline Phosphatase 69 Units/L (46-116) 06/14/17 05:40 Total Protein 6.1 g/dL (6.4-8.2) L 06/14/17 05:40 Albumin 3.0 g/dL (3.4-5.0) L 06/14/17 05:40 Globulin 3.1 g/dL (2.5-4.5) 06/14/17 05:40 Albumin/Globulin Ratio 1.0 Ratio (1.1-2.1) L 06/14/17 05:40 - Plan (1) Bronchopneumonia Status: Acute Plan: PNEUMONIA PROTOCOL, VISHAL BOOGIE, RESPIRATORY TX, MUCINEX DM, SOLU- MEDROL 20MG IV Q8H, RESPIRATORY TX, CONTINUE TO MONITOR (2) Diabetes Status: Chronic Qualifiers: Diabetes mellitus type: type 2 Diabetes mellitus complication status: without complication Diabetes mellitus nursing home insulin use: with nursing home use Qualified Code(s): E11.9 - Type 2 diabetes mellitus without complications ; Z79.4 - skilled nursing (current) use of insulin; Z79.4 - skilled nursing (current) use of insulin; Z79.4 - skilled nursing (current) use of insulin; Z79.4 - joint terminal attack controller ( current) use of insulin Plan: CONTINUE AMARYL, CONTINUE METFORMIN, MONITOR OTBS, HUMULIN R SLIDING SCALE , CONTINUE TO MONITOR (3) Coronary artery disease Status: Chronic Qualifiers: Coronary Disease-Associated Artery/Lesion type: [place] artery [place] vs. transplanted heart: [place] heart Associated angina: angina presence unspecified Qualified Code(s): I25.10 - Atherosclerotic heart disease of [place] coronary artery without angina pectoris Plan: CONTINUE PLAVIX, CONTINUE ASPIRIN, CONTINUE TO MONITOR (4) Asthma Status: Chronic Qualifiers: Asthma severity: unspecified severity Asthma persistence: intermittent Asthma complication type: unspecified Qualified Code(s): J45.20 - Mild intermittent asthma, uncomplicated Plan: CONTINUE RESPIRATORY TX, CONTINUE SUPPLEMENTAL OXYGEN, CONTINUE TO MONITOR (5) Hyperlipidemia Status: Chronic Qualifiers: Hyperlipidemia type: mixed hyperlipidemia Qualified Code(s): E78.2 - Mixed hyperlipidemia Plan: CONTINUE ZOCOR, CONTINUE TO MONITOR (6) Hypertension Status: Chronic Qualifiers: Hypertension type: essential hypertension Qualified Code(s): I10 - Essential (primary) hypertension Plan: CONTINUE COZAAR, CONTINUE HCTZ, CONTINUE TO MONITOR
== END 2017-06-14 12:45 | disposition home health service (06) ==
LOC: UNDOADMOB 15:51 → OBS 15:51 → MED/SURG 06-11 17:30
PROVIDERS: ADMIT Internal Medicine; ATTEND Internal Medicine
PROC: 3E0234Z Introduction of Serum, Toxoid and Vaccine into Muscle, Percutaneous Approach (ICD-10-PCS; principal; 2017-06-14)
DX: J18.0 Bronchopneumonia, unspecified organism (principal); R06.02 Shortness of breath; J44.9 Chronic obstructive pulmonary disease, unspecified; J45.20 Mild intermittent asthma, uncomplicated; I25.10 Atherosclerotic heart disease of native coronary artery without angina pectoris; E11.65 Type 2 diabetes mellitus with hyperglycemia; Z79.4 Long term (current) use of insulin; I10 Essential (primary) hypertension; E78.2 Mixed hyperlipidemia; Z23 Encounter for immunization
CPT/HCPCS: 36415; 71045; 71046; 80053; 82947; 83735; 84132; 85025; 87040; 87070; 87205; 90686; 94640; 94760; A4222; G0378; J0713; J1815; J1956; J2405; J2920; J7620

== ENCOUNTER 2017-12-27 09:18 | Observation (INO) ==
[2017-12-27 09:27] VITALS: BMI 27.8
[2017-12-27] MEDS ORDERED: ZOFRAN INJ 4 MG VIAL IVP ONE (09:46)
[2017-12-27] MEDS ORDERED: MORPHINE SULFATE INJ 2 MG INJ IVP ONE (09:46)
[2017-12-27] MEDS ORDERED: ZOFRAN INJ 4 MG VIAL ONE (09:56)
[2017-12-27] MEDS ORDERED: MORPHINE SULFATE INJ 2 MG INJ ONE (09:57)
[2017-12-27] MEDS ORDERED: NS 1000 ML 1,000 ML IV SCH (10:00)
--- NOTE | 2017-12-27 10:06 | ED.ABDFE ---
HPI Time Seen Time seen: 09:45 PCP Primary Care Physician: SHERRON FRASER HPI Comment HPI Comment: PAIN IS SHARP, NON RADIATING WIHT NO ASSOCIATED SYMPTOMS. DENIES FEVER, DYSURIA, N/V/D OR CONSTIPATION. SHE DID NOT TAKE ANY MED FOR PAIN. NO IMMEDIATE AGGREVATED FACTORS NOTED. Complaint Doctors Chief Complaint Comments: PAIN LLQ OF ABDOMEN TIMES ONE DAY. Chief Complaint:: SEVERE ABD PAIN, PT STATES IT STARTED YESTERDAY EVENING. Source History Provided: Patient and Family Member (DAUGHTER.) Mode of arrival Mode of Arrival: Ambulatory Timing Onset of Chief Complaint: 12/26/17 Came on: Suddenly Duration Since Onset: Constant Duration: Days Location Location: LLQ Severity Severity: Moderate Quality Quality: Sharp Context History of: None Modifying factors Worsening Factors: Nothing Improving Factors: Nothing Associated signs and symptoms Associated Signs and Symptoms: None PMH PMH Past Medical History: Yes Past Medical History: Asthma, COPD, Coronary Artery Disease, Diabetes, Hypertension, [place] and Sleep Apnea Past Surgical History: Yes Surgical History: Appendectomy and Cholecystectomy Family History History of Family Medical Conditions: No Family Medical History: Cancer, [place] and Hypertension Social History Have you used tobacco products in the last 12 months: No Type of Tobacco Use: None Does any household member use tobacco: No Alcohol Use: None Do you use any recreational Drugs:: No Lives With: Alone Lives Where: Home infectious screening In the last 2 months have you had wt loss of >10#?: NO Have you had fever, night sweats or hemotysis?: No Have you traveled outside the country in the last 6 months?: No Isolation: Standard ROS Review of Systems Constitutional: No Symptoms Reported Eyes: No Symptoms Reported ENTM: No Symptoms Reported Respiratoy: No Symptoms Reported Cardiovascular: No Symptoms Reported Gastrointestinal/Abdominal: Abdominal Pain Neurological: No Symptoms Reported Musculoskeletal: No Symptoms Reported Integumentary: No Symptoms Reported Hematologic/Lymphatic: No Symptoms Reported Endocrine: No Symptoms Reported Psychiatric: No Symptoms Reported All Other Systems: Reviewed and Negative PE Vital Signs Vitals: Temperature 97.9 F Pulse Rate 79 Respiratory Rate 20 Blood Pressure [Right Arm] 171/72 Blood Pressure [Left Arm] 141/63 Blood Pressure 208/91 O2 Sat by Pulse Oximetry 99 General Limitations: No Limitations General Appearance: Alert Head Head Exam: Normal Inspection Eyes Eye exam: Normal Appearance ENT ENT Exam: Normal Exam Neck Neck Exam: Normal Inspection Chest Chest Inspection: Normal Inspection Respiratory Respiratory Exam: Normal Lung Sounds Bilat Respiratory Exam: Bilateral: Clear to Auscultation Cardiovascular Cardiovascular Exam: Regular Rate, Normal Rhythm and Normal Heart Sounds Abdominal Exam Abdominal Exam: Normal Bowel Sounds, Soft and Tenderness Abdominal Tenderness: LLQ and Moderate Rectal Rectal Exam: Deferred Back Back Exam: Normal Inspection Extremeties Extremities Exam: Normal Inspection External Exam: Female: Deferred : Speculum Exam (Female): Deferred : Bimanual Exam (female): Deferred Neurologic Neurological Exam: Alert and Oriented X3 Skin Skin Exam: Warm, Dry, Intact and Normal Color MDM Differential Diagnosis Differential Diagnosis- Considerations may include:: Bowel Obstruction, Cholcystitis, Cholelethiasis, Constipation, Diverticular disease, Gastritus/PUD , Gastroenteritis, Pancreatitis, Urinary tract infection and Urolithiasis COURSE Treatment Treatment: SEE ORDERS. Education/Counseling Education/Counseling: Education Educated On: Diagnosis ROR Labs Reviewed Laboratory Results Reviewed?: Yes
[2017-12-27 10:10] LABS: BASOPHILS % (AUTO) 0.4 % (0.2-1.0); EOSINOPHILS # (AUTO) 0.1 x10^3/uL (0.0-0.2); EOSINOPHILS % (AUTO) 1.9 % (0.9-2.9); HEMATOCRIT 39.6 % (36.0-47.0); HEMOGLOBIN 13.7 g/dL (12.0-16.0); LYMPHOCYTES % (AUTO) 27.8 % (21.0-51.0); MEAN CORPUSCULAR HGB CONC 34.6 g/dL (33.0-35.0); MEAN CORPUSCULAR VOLUME 83.8 fL (80.0-100.0); MEAN PLATELET VOLUME 7.6 fL (7.4-11.0); MONOCYTES # (AUTO) 0.5 x10^3/uL (0.3-0.8); MONOCYTES % (AUTO) 7.7 % (0.0-13.0); NEUTROPHILS # (AUTO) 4.4 x10^3/uL (2.2-4.8); NEUTROPHILS % (AUTO) 62.2 % (42.0-75.0); PLATELET COUNT 325 X10^3/uL (150.0-450.0); RED BLOOD COUNT 4.73 X10^6/uL (3.5-5.4); RED CELL DISTRIBUTION WIDTH 13.1 % (11.6-16.5); WHITE BLOOD COUNT 7.1 X10^3/uL (3.6-10.0)
[2017-12-27 10:16] LABS: ALANINE AMINOTRANSFERASE 26 Units/L (12-78); ALBUMIN 3.7 g/dL (3.4-5.0); ALKALINE PHOSPHATASE 109 Units/L (46-116); AMYLASE 69 Units/L (25-115); ASPARTATE AMINO TRANSFERASE 24 Units/L (15-37); BLOOD UREA NITROGEN 12 mg/dL (7-18); CALCIUM 9.1 mg/dL (8.5-10.1); CARBON DIOXIDE 29.7 mmol/L (21-32); CHLORIDE 100 mmol/L (98-107); COR NA(FOR HYPERGLY) 136 mmol/L (136-145); CREATININE 0.86 mg/dL (0.55-1.02); LIPASE 115 Units/L (73-393); SODIUM 135 mmol/L (136-145); TOTAL PROTEIN 7.3 g/dL (6.4-8.2); eGFR NON BLACK RACES > 60 (>60)
--- NOTE | 2017-12-27 10:42 | CT ---
Indication: Pain Exam: CT scan abdomen and pelvis without contrast Technique: Axial spiral images were obtained from the lung bases through the pubic symphysis without contrast. Automated dose control was utilized. Findings: There are mild linear densities along the lung bases with a small hiatal hernia. The liver and spleen are normal size and density. The gallbladder has been removed with clips in the gallbladde r fossa. The bile ducts and pancreas are normal. The adrenals are normal. The kidneys are normal size with no hydronephrosis or renal stones. There is a 1.6 cm cyst along the mid polar region on the lef t. The ureters are normal caliber. There is no adenopathy or ascites. The uterus is atrophic with no adnexal mass or free fluid. There is mild feces throughout the colon which is normal caliber . There are some borderline dilated loops of small bowel along the left abdomen with small air-fluid levels t hroughout. There is some questionable circumferential mucosal thickening in several loops of distal s mall bowel along the left lower abdomen with no surrounding inflammation or mass seen. The appendix i s not well visualized . The bladder is unremarkable. There are degenerative changes seen in the spine with no aggressive osseous lesion. the left lower abdomen with no obvious mass or inflammatory stran ding in the area. Impression: Limited exam due the lack of oral and IV contrast with mild constipation and questionable mild mucosa l thickening in several loops of distal small bowel . There may be an associated early ileus or less likely a developing distal partial small bowel obstruction . Recommend follow-up. Status post cholecystectomy . Small renal cyst with no hydronephrosis or urinary obstruction Mild discoid atelectasis or scarring along the lung bases and a small hiatal hernia paragraphs. Atrophic uterus with no pelvic mass or inflammation. Reported By:
--- NOTE | 2017-12-27 11:35 | ED.ABDFE ---
HPI Time Seen Time seen: 10:15 PCP Primary Care Physician: SHERRON FRASER HPI Comment HPI Comment: PATIENT STARTED HAVING INCREASING LLQ ABDMINAL PAIN SINCE YESTERDAY WITH NAUSEA. Complaint Doctors Chief Complaint Comments: ABDOMINAL PAIN TIMES ONE DAY. Chief Complaint:: SEVERE ABD PAIN, PT STATES IT STARTED YESTERDAY EVENING. Reviewed Nurses Notes Review: Yes Source History Provided: Patient and Family Member (DAUGHTER.) Mode of arrival Mode of Arrival: Ambulatory Timing Onset of Chief Complaint: 12/26/17 Came on: Suddenly Duration Since Onset: Constant Duration: Days Location Location: LLQ Severity Severity: Moderate Quality Quality: Cramping and Sharp Context History of: None Modifying factors Worsening Factors: Movement Improving Factors: Nothing Associated signs and symptoms Associated Signs and Symptoms: Nausea PMH PMH Past Medical History: Yes Past Medical History: Asthma, COPD, Coronary Artery Disease, Diabetes, Hypertension, [place] and Sleep Apnea Past Surgical History: Yes Surgical History: Appendectomy and Cholecystectomy Family History History of Family Medical Conditions: No Family Medical History: Cancer, [place] and Hypertension Social History Have you used tobacco products in the last 12 months: No Type of Tobacco Use: None Does any household member use tobacco: No Alcohol Use: None Do you use any recreational Drugs:: No Lives With: Alone Lives Where: Home infectious screening In the last 2 months have you had wt loss of >10#?: NO Have you had fever, night sweats or hemotysis?: No Have you traveled outside the country in the last 6 months?: No Isolation: Standard ROS Review of Systems Constitutional: No Symptoms Reported Eyes: No Symptoms Reported ENTM: No Symptoms Reported Respiratoy: Short of Breath (ON EXERSION.) Cardiovascular: No Symptoms Reported Gastrointestinal/Abdominal: Abdominal Pain and Nausea Genitourinary: No Symptoms Reported Neurological: Weakness Musculoskeletal: No Symptoms Reported Integumentary: No Symptoms Reported Hematologic/Lymphatic: No Symptoms Reported Psychiatric: No Symptoms Reported All Other Systems: Reviewed and Negative PE Vital Signs Vitals: Temperature 97.6 F Pulse Rate [Left Brachial] 71 Pulse Rate 79 Respiratory Rate 18 Blood Pressure [Right Arm] 128/60 Blood Pressure [Left Arm] 130/59 Blood Pressure 208/91 O2 Sat by Pulse Oximetry 94 General Limitations: No Limitations General Appearance: Alert and In No Apparent Distress Head Head Exam: Normal Inspection Eyes Eye exam: Normal Appearance ENT ENT Exam: Normal Exam Neck Neck Exam: Normal Inspection Chest Chest Inspection: Normal Inspection and Symmetric Chest Wall Rise Respiratory Respiratory Exam: Normal Lung Sounds Bilat Respiratory Exam: Bilateral: Rales and Lower: Rales Cardiovascular Cardiovascular Exam: Regular Rate, Normal Rhythm and Normal Heart Sounds Abdominal Exam Abdominal Exam: Normal Inspection, Normal Bowel Sounds, Soft and Tenderness Abdominal Tenderness: LLQ and Moderate Rectal Rectal Exam: Deferred Back Back Exam: Normal Inspection Extremeties Extremities Exam: Normal Inspection External Exam: Female: Deferred : Speculum Exam (Female): Deferred : Bimanual Exam (female): Deferred Neurologic Neurological Exam: Alert and Oriented X3; negative Motor Sensory Deficit Psychiatric Psychiatric Exam: Normal Affect and Normal Mood Skin Skin Exam: Warm, Dry and Intact MDM Differential Diagnosis Differential Diagnosis- Considerations may include:: Bowel Obstruction, Constipation, Diverticular disease, Gastritus/PUD, Gastroenteritis, Pancreatitis , Urinary tract infection and Urolithiasis COURSE Treatment Treatment: SEE ORDERS. Consultation Consultation Comments: DISCUSS PATIENT WITH DR. MTZ. HE WILL ADMIT PATIENT. Education/Counseling Education/Counseling: Patient, Family and Education Educated On: Diagnosis ROR Labs Reviewed Laboratory Results Reviewed?: Yes Result Diagrams: 12/29/17 04:52 12/29/17 04:52 Laboratory: WBC 6.2 X10^3/uL (3.6-10.0) 12/29/17 04:52 RBC 4.42 X10^6/uL (3.5-5.4) 12/29/17 04:52 Hgb 12.9 g/dL (12.0-16.0) 12/29/17 04:52 Hct 37.0 % (36.0-47.0) 12/29/17 04:52 MCV 83.7 fL (80.0-100.0) 12/29/17 04:52 MCH 29.2 pg (27.0-34.0) 12/29/17 04:52 MCHC 34.8 g/dL (33.0-35.0) 12/29/17 04:52 RDW 13.4 % (11.6-16.5) 12/29/17 04:52 Plt Count 277 X10^3/uL (150.0-450.0) 12/29/17 04:52 MPV 7.4 fL (7.4-11.0) 12/29/17 04:52 Neut % (Auto) 55.8 % (42.0-75.0) 12/29/17 04:52 Lymph % (Auto) 30.0 % (21.0-51.0) 12/29/17 04:52 [place] % (Auto) 9.7 % (0.0-13.0) 12/29/17 04:52 Eos % (Auto) 3.8 % (0.9-2.9) H 12/29/17 04:52 Baso % (Auto) 0.7 % (0.2-1.0) 12/29/17 04:52 Neut # (Auto) 3.4 x10^3/uL (2.2-4.8) 12/29/17 04:52 Lymph # (Auto) 1.8 X10^3/uL (1.3-2.9) 12/29/17 04:52 [place] # (Auto) 0.6 x10^3/uL (0.3-0.8) 12/29/17 04:52 Eos # (Auto) 0.2 x10^3/uL (0.0-0.2) 12/29/17 04:52 Baso # (Auto) 0.0 X10^3/uL (0.0-0.1) 12/29/17 04:52 Absolute Nucleated RBC 0.2 /100WBC 12/29/17 04:52 Sodium 136 mmol/L (136-145) 12/29/17 04:52 Corrected Sodium 137 mmol/L (136-145) 12/29/17 04:52 Potassium 3.5 mmol/L (3.5-5.1) 12/29/17 04:52 Chloride 101 mmol/L (98-107) 12/29/17 04:52 Carbon Dioxide 27.7 mmol/L (21-32) 12/29/17 04:52 BUN 9 mg/dL (7-18) 12/29/17 04:52 Creatinine 0.87 mg/dL (0.55-1.02) 12/29/17 04:52 Est GFR (MDRD) Af Amer > 60 (>60) 12/29/17 04:52 Est GFR (MDRD) Non-Af > 60 (>60) 12/29/17 04:52 Glucose 161 mg/dL (65-99) H 12/29/17 04:52 POC Glucose (mg/dL) 166 mg/dL (65-99) H 12/29/17 06:05 Calcium 8.6 mg/dL (8.5-10.1) 12/29/17 04:52 Corrected Calcium 9.2 mg/dL (8.5-10.1) 12/29/17 04:52 Total Bilirubin 0.70 mg/dL (0.2-1.0) 12/29/17 04:52 AST 19 Units/L (15-37) 12/29/17 04:52 ALT 21 Units/L (12-78) 12/29/17 04:52 Alkaline Phosphatase 92 Units/L (46-116) 12/29/17 04:52 Creatine Kinase 53 Units/L (26-192) 12/28/17 03:08 CK-MB (CK-2) < 1.0 ng/mL (0-4.0) 12/28/17 03:08 CK/CKMB % Calc 1.9 % (<4) 12/28/17 03:08 Troponin I < 0.02 ng/mL (0-1.5) 12/28/17 03:08 Total Protein 6.6 g/dL (6.4-8.2) 12/29/17 04:52 Albumin 3.2 g/dL (3.4-5.0) L 12/29/17 04:52 Globulin 3.4 g/dL (2.5-4.5) 12/29/17 04:52 Albumin/Globulin Ratio 0.9 Ratio (1.1-2.1) L 12/29/17 04:52 Amylase 69 Units/L (25-115) 12/27/17 09:57 Lipase 115 Units/L (73-393) 12/27/17 09:57 Specimen Type Random urine 12/27/17 12:27 Urine Color Yellow (YELLOW) 12/27/17 12:27 Urine Appearance Cloudy (CLEAR) 12/27/17 12:27 Urine pH 8.0 (5.0 - 8.0) 12/27/17 12:27 Ur Specific [place] 1.010 (1.000-1.030) 12/27/17 12:27 Urine Protein Negative (NEGATIVE) 12/27/17 12:27 Urine Glucose (UA) Negative (NEGATIVE) 12/27/17 12:27 Urine Ketones Negative (NEGATIVE) 12/27/17 12:27 Urine Occult Blood 1+ (NEGATIVE) 12/27/17 12:27 Urine Nitrite Positive (NEGATIVE) 12/27/17 12:27 Urine Bilirubin Negative (NEGATIVE) 12/27/17 12:27 Urine Urobilinogen Normal (NORMAL) 12/27/17 12:27 Ur Leukocyte Esterase 2+ (NEGATIVE) 12/27/17 12:27 Urine RBC 0-2 /HPF (NONE SEEN) 12/27/17 12:27 Urine WBC 0-2 /HPF (NONE SEEN) 12/27/17 12:27 Ur Squamous Epith Cells Few /HPF (NEGATIVE) 12/27/17 12:27 Urine Bacteria 2+ /HPF (NEGATIVE) 12/27/17 12:27 Ur Culture Indicated? No/not indicated 12/27/17 12:27 XRAY XRAY Interpreted by: Radiologist XRAY Findings: REPORT DISCUSS WITH PATIENT. EKG [place]: Normal Diagnosis Discharge Problem: Abdominal pain, Abnormal CT scan Instructions Instructions: Fall Prevention in the Home, Ulvg-[id number] Ileus Abdominal Pain, Adult, [id number] Pain Medicine Instructions, [id number] Type 2 Diabetes Mellitus, Diagnosis, Adult, [id number] Forms: Patient Portal
[2017-12-27 12:37] LABS: BILIRUBIN,URINE NEGATIVE (NEGATIVE); BLOOD/HEMOGLOBIN,URINE 1+ (NEGATIVE); GLUCOSE, URINE NEGATIVE (NEGATIVE); KETONES,URINE NEGATIVE (NEGATIVE); LEUKOCYTE ESTERASE ,URINE 2+ (NEGATIVE); NITRITES,URINE POSITIVE (NEGATIVE); PROTEIN,URINE NEGATIVE (NEGATIVE); UROBILINOGEN,URINE NORMAL (NORMAL)
[2017-12-27 12:43] LABS: APPEARANCE,URINE CLOUDY (CLEAR); COLOR,URINE YELLOW (YELLOW)
[2017-12-27 12:44] LABS: BACTERIA,URINE 2+ /HPF (NEGATIVE); RBC,URINE 0-2 /HPF (NONE SEEN); SQUAMOUS EPITHELIAL CELL,UR FEW /HPF (NEGATIVE)
[2017-12-27] MEDS ORDERED: MORPHINE SULFATE INJ 2 MG INJ IVP PRN (14:43)
[2017-12-27 15:56] LABS: CKMB % 1.9 % (<4); CREATINE KINASE 52 Units/L (26-192); CREATINE KINASE MB < 1.0 ng/mL (0-4.0); TROPONIN I < 0.02 ng/mL (0-1.5)
[2017-12-27] MEDS: GLUTOSE 15 GEL ORAL PO PRN ×2 (16:40→17:25)
[2017-12-27] MEDS: D5W 1000 ML IV 1,000 ML IV SCH (18:28)
[2017-12-27 21:03] LABS: CKMB % 1.7 % (<4); CREATINE KINASE 59 Units/L (26-192); CREATINE KINASE MB < 1.0 ng/mL (0-4.0); TROPONIN I < 0.02 ng/mL (0-1.5)
[2017-12-28] MEDS: D5W 1000 ML IV 1,000 ML IV SCH ×3 (03:05→19:28)
[2017-12-28 03:33] LABS: ALANINE AMINOTRANSFERASE 22 Units/L (12-78); ALKALINE PHOSPHATASE 93 Units/L (46-116); ASPARTATE AMINO TRANSFERASE 20 Units/L (15-37); BLOOD UREA NITROGEN 11 mg/dL (7-18); CALCIUM 8.2 mg/dL (8.5-10.1); CARBON DIOXIDE 29.8 mmol/L (21-32); CHLORIDE 103 mmol/L (98-107); COR NA(FOR HYPERGLY) 137 mmol/L (136-145); CREATININE 0.83 mg/dL (0.55-1.02); SODIUM 137 mmol/L (136-145); TOTAL PROTEIN 5.6 g/dL (6.4-8.2); eGFR NON BLACK RACES > 60 (>60)
[2017-12-28 03:38] LABS: CKMB % 1.9 % (<4); CREATINE KINASE 53 Units/L (26-192); CREATINE KINASE MB < 1.0 ng/mL (0-4.0); TROPONIN I < 0.02 ng/mL (0-1.5)
--- NOTE | 2017-12-28 08:34 | RAD ---
HISTORY: Abdominal pain Study: KUB Comparison: None Findings: The abdominal gas pattern is nonspecific and nonobstructive. No abnormal masses or abnormal calcifica tions are identified. The regional skeleton is intact. IMPRESSION: Unremarkable KUB Reported By:
[2017-12-28] MEDS: CIPRO IV 400 MG PREMIX* 400 MG/200 ML IV.SOLN. IV SCH ×2 (14:44→20:53)
[2017-12-29 05:12] LABS: BASOPHILS % (AUTO) 0.7 % (0.2-1.0); EOSINOPHILS # (AUTO) 0.2 x10^3/uL (0.0-0.2); EOSINOPHILS % (AUTO) 3.8 % (0.9-2.9); HEMOGLOBIN 12.9 g/dL (12.0-16.0); LYMPHOCYTES # (AUTO) 1.8 X10^3/uL (1.3-2.9); MEAN CORPUSCULAR HEMOGLOBIN 29.2 pg (27.0-34.0); MEAN CORPUSCULAR HGB CONC 34.8 g/dL (33.0-35.0); MEAN CORPUSCULAR VOLUME 83.7 fL (80.0-100.0); MEAN PLATELET VOLUME 7.4 fL (7.4-11.0); MONOCYTES # (AUTO) 0.6 x10^3/uL (0.3-0.8); MONOCYTES % (AUTO) 9.7 % (0.0-13.0); NEUTROPHILS # (AUTO) 3.4 x10^3/uL (2.2-4.8); NEUTROPHILS % (AUTO) 55.8 % (42.0-75.0); PLATELET COUNT 277 X10^3/uL (150.0-450.0); RED BLOOD COUNT 4.42 X10^6/uL (3.5-5.4); RED CELL DISTRIBUTION WIDTH 13.4 % (11.6-16.5); WHITE BLOOD COUNT 6.2 X10^3/uL (3.6-10.0)
[2017-12-29 05:32] LABS: ALANINE AMINOTRANSFERASE 21 Units/L (12-78); ALBUMIN 3.2 g/dL (3.4-5.0); ALKALINE PHOSPHATASE 92 Units/L (46-116); ASPARTATE AMINO TRANSFERASE 19 Units/L (15-37); BLOOD UREA NITROGEN 9 mg/dL (7-18); CALCIUM 8.6 mg/dL (8.5-10.1); CARBON DIOXIDE 27.7 mmol/L (21-32); CHLORIDE 101 mmol/L (98-107); COR CA(FOR HYPOALB) 9.2 mg/dL (8.5-10.1); COR NA(FOR HYPERGLY) 137 mmol/L (136-145); CREATININE 0.87 mg/dL (0.55-1.02); SODIUM 136 mmol/L (136-145); TOTAL PROTEIN 6.6 g/dL (6.4-8.2); eGFR NON BLACK RACES > 60 (>60)
[2017-12-29] MEDS: D5W 1000 ML IV 1,000 ML IV SCH (06:08)
--- NOTE | 2017-12-29 06:55 | RAD ---
HISTORY: Abdominal pain Study: KUB Comparison: 12/28/2017 Findings: The abdominal gas pattern is nonspecific and nonobstructive. No abnormal masses or abnormal calcifica tions are identified. The regional skeleton is intact. IMPRESSION: Unremarkable KUB Reported By:
--- NOTE | 2017-12-29 08:15 | DR.H&P ---
H&P - History & Physical for Day of: H&P Date: 12/27/17 - Chief Complaint Chief Complaint: abdominal pain - History of Present Illness History of Present Illness: is a 82 year old patient of ours who presented to the emergency room with reports of severe abdominal pain. Patient reports symptoms started yesterday evening and have become increasingly worse. She reports moderate pain to the left lower quadrants. Patient noted with moderate tenderness on palpation of abdomen. Medical History includes: Cataracts , Glaucoma, CAD, [place], Hypertension, Asthma, Bronchitis, Pneumonia, COPD, Muscle Weakness, Arthritis, Gout, Back Pain, DM type II, Skin CA. On arrival, vitals were 97.9, 79, 20, 99% RA, 208/91. Labs were obtained. Abnormal lab values include the following: Sodium 135, Glucose 132, A/G Ratio 1.0. Urinalysis: Cloudy, Occult Blood 1+, Nitrite Positive, Leuk Est 2+, RBC 0-2, WBC 0-2, Bacteria 2+. EKG: Sinus Rhythm. Rate=63. An abdomen and pelvis CT obtained revealed questionable mild mucosal thickening in several loops of distal small bowel. There may be an associated early ileus or less likely a developing distal partial small bowel obstruction. Patient admitted to the hospital as observation for further evaluation and treatment. Patient held NPO. Patient started on IV fluids and pain medications. Will follow up with AM labs and continue to monitor. - Past Medical History Past Medical History: [place], Coronary Artery Disease, Hypertension, Diabetes, COPD , Asthma, Sleep Apnea Additional Medical History: CATARACTS, GLAUCOMA, RETINA SURGERY, SKIN CANCER - Past Surgical History Surgical History: Appendectomy, Cholecystectomy, Other Additional Surgical History: HERNAI REPAIR, SKIN CANCER REMOVED, BENIGN TUMOR REMOVED FROM LEGS AND ARMS, VEIN STRIPPED IN LEGS, HEART CATH WITH STENTS - Family History Family Medical History: Cancer, [place], Hypertension - Social History Have you used tobacco products in the last 12 months: No Type of Tobacco Use: None Does any household member use tobacco: No Alcohol Use: None Drug Use: None - Medications Home Medications: atorvastatin [From Lipitor] Allergy (Verified 06/06/17 18:00) codeine Allergy (Verified 06/06/17 18:01) Penicillins Allergy (Verified 06/06/17 18:00) ANY COUGH SYRUP Allergy (Uncoded 06/06/17 18:02) CONTINUE taking the following medications fluticasone-salmeterol [Advair Diskus] 1 inh INHALATION BID 12/27/17 [History] montelukast 10 mg PO DAILY 12/27/17 [History] benzonatate 100 mg PO TID 12/28/17 [History] - Review of Systems Constitutional: No Symptoms Reported Eyes: No Symptoms Reported ENT: No Symptoms Reported Respiratory: No Symptoms Reported Cardiovascular: No Symptoms Reported Gastrointestinal: Nausea, Abdominal Pain (LLQ PAIN ) Genitourinary: No Symptoms Reported Musculoskeletal: No Symptoms Reported Skin: No Symptoms Reported Neurological: No Symptoms Reported - Physical Exam Vital Signs: Temperature 98.9 F Pulse Rate [Left Brachial] 84 Pulse Rate 79 Respiratory Rate 16 Blood Pressure [Right Arm] 143/63 Blood Pressure [Left Arm] 130/59 Blood Pressure 208/91 O2 Sat by Pulse Oximetry 94 Oriented: Normal Eyes: Normal Ear: Normal Nose: Normal Throat: Normal Respiratory: Diminished Throughout Cardiovascular: Normal : Normal Auscultation: Bowel Sounds: Normal Palpation: Normal Tenderness: LLQ, Moderate. negative: Rebound, Guarding, Rigidity Skin: Normal Musculoskeletal: Normal Psychiatric: Normal Mood Description: Calm Affect: Normal Speech Pattern: Clear - Assessment/Plan (1) Abdominal pain Qualifiers: Abdominal location: left lower quadrant Qualified Code(s): R10.32 - Left lower quadrant pain Status: Acute Plan: ADMIT, NORMAL SALINE AT 75ML/HR, MORPHINE 1-2MG IV Q4H PRN PAIN, KUB IN AM , CONTINUE TO MONITOR (2) Urinary tract infection Qualifiers: Urinary tract infection type: acute cystitis Hematuria presence: without hematuria Qualified Code(s): N30.00 - Acute cystitis without hematuria Status: Acute Plan: CIPRO 400MG IV Q12H, CONTINUE TO MONITOR - Allergies Allergies/Adverse Reactions: Allergies Allergy/AdvReac Type Severity Reaction Status Date / Time atorvastatin [From Lipitor] Allergy Verified 06/06/17 18:00 codeine Allergy Verified 06/06/17 18:01 Penicillins Allergy Verified 06/06/17 18:00 ANY COUGH SYRUP Allergy Uncoded 06/06/17 18:02
[2017-12-29] MEDS: CIPRO IV 400 MG PREMIX* 400 MG/200 ML IV.SOLN. IV SCH (09:13)
[2017-12-29 10:41] VITALS: BP 128/60
--- NOTE | 2018-01-09 08:16 | PCM.PROG ---
Progress Note - Progress Note for Day of Date of Exam: 12/28/17 - Subjective Subjective: WAS ADMITTED FOR ABDOMINAL PAIN, RULE OUT SMALL BOWEL OBSTRUCTION AND A URINARY TRACT INFECTION. TODAY, SHE IS ALERT AND ORIENTED, LYING IN BED ON MORNING ROUNDS. SHE CONTINUES WITH ABDOMINAL PAIN, BUT REPORTS THAT IT IS MORE DIFFUSE TODAY. ON EXAMINATION, HEART IS REGULAR IN RATE AND RHYTHM. BILATERAL LUNGS ARE CLEAR TO AUSCULTATION. ABDOMEN IS ROUND, SOFT, AND NOTED WITH MILD, DIFFUSE TENDERNESS ON PALPATION. NORMAL BOWEL SOUNDS ARE NOTED IN ALL QUADRANTS. HER VITALS THIS MORNING ARE 98.7-68-18-96%-129/63. LABS WERE OBTAINED. SHE REMAINS HEMODYNAMICALLY STABLE THIS MORNING. A KUB WAS OBTAINED AND REVEALED: The abdominal gas pattern is nonspecific and nonobstructive. No abnormal masses or abnormal calcifications are identified. The regional skeleton is intact. TODAY, WE WILL CONTINUE WITH CIPRO 400MG IV Q12H AND IV FLUIDS. OTHERWISE, WE WILL FOLLOW UP WITH AM LABS AND CONTINUE TO MONITOR PATIENT. - Past Medical Family Social History Past Med/Fam/Surg Hx: No changes since H&P Allergies: Allergies atorvastatin [From Lipitor] Allergy (Verified 06/06/17 18:00) codeine Allergy (Verified 06/06/17 18:01) Penicillins Allergy (Verified 06/06/17 18:00) ANY COUGH SYRUP Allergy (Uncoded 06/06/17 18:02) - Review of Systems ROS: No change since H&P - Vital Signs and I&O's Vital Signs: Temperature 97.6 F Pulse Rate [Left Brachial] 71 Pulse Rate 79 Respiratory Rate 18 Blood Pressure [Right Arm] 128/60 Blood Pressure [Left Arm] 130/59 Blood Pressure 208/91 O2 Sat by Pulse Oximetry 94 - Physical Exam Oriented: Normal Eyes: Normal Ear: Normal Nose: Normal Throat: Normal Cardiovascular: Normal : Normal Auscultation: Bowel Sounds: Normal Palpation: Normal Tenderness: Diffuse, Mild. negative: Rebound, Guarding, Rigidity Skin: Normal Musculoskeletal: Normal Psychiatric: Normal Mood Description: Calm Affect: Normal Speech Pattern: Clear - Laboratory and Diagnostics Result Diagrams: 12/29/17 04:52 12/29/17 04:52 Labs: Laboratory WBC 6.2 X10^3/uL (3.6-10.0) 12/29/17 04:52 RBC 4.42 X10^6/uL (3.5-5.4) 12/29/17 04:52 Hgb 12.9 g/dL (12.0-16.0) 12/29/17 04:52 Hct 37.0 % (36.0-47.0) 12/29/17 04:52 MCV 83.7 fL (80.0-100.0) 12/29/17 04:52 MCH 29.2 pg (27.0-34.0) 12/29/17 04:52 MCHC 34.8 g/dL (33.0-35.0) 12/29/17 04:52 RDW 13.4 % (11.6-16.5) 12/29/17 04:52 Plt Count 277 X10^3/uL (150.0-450.0) 12/29/17 04:52 MPV 7.4 fL (7.4-11.0) 12/29/17 04:52 Neut % (Auto) 55.8 % (42.0-75.0) 12/29/17 04:52 Lymph % (Auto) 30.0 % (21.0-51.0) 12/29/17 04:52 [place] % (Auto) 9.7 % (0.0-13.0) 12/29/17 04:52 Eos % (Auto) 3.8 % (0.9-2.9) H 12/29/17 04:52 Baso % (Auto) 0.7 % (0.2-1.0) 12/29/17 04:52 Neut # (Auto) 3.4 x10^3/uL (2.2-4.8) 12/29/17 04:52 Lymph # (Auto) 1.8 X10^3/uL (1.3-2.9) 12/29/17 04:52 [place] # (Auto) 0.6 x10^3/uL (0.3-0.8) 12/29/17 04:52 Eos # (Auto) 0.2 x10^3/uL (0.0-0.2) 12/29/17 04:52 Baso # (Auto) 0.0 X10^3/uL (0.0-0.1) 12/29/17 04:52 Absolute Nucleated RBC 0.2 /100WBC 12/29/17 04:52 Sodium 136 mmol/L (136-145) 12/29/17 04:52 Corrected Sodium 137 mmol/L (136-145) 12/29/17 04:52 Potassium 3.5 mmol/L (3.5-5.1) 12/29/17 04:52 Chloride 101 mmol/L (98-107) 12/29/17 04:52 Carbon Dioxide 27.7 mmol/L (21-32) 12/29/17 04:52 BUN 9 mg/dL (7-18) 12/29/17 04:52 Creatinine 0.87 mg/dL (0.55-1.02) 12/29/17 04:52 Est GFR (MDRD) Af Amer > 60 (>60) 12/29/17 04:52 Est GFR (MDRD) Non-Af > 60 (>60) 12/29/17 04:52 Glucose 161 mg/dL (65-99) H 12/29/17 04:52 POC Glucose (mg/dL) 166 mg/dL (65-99) H 12/29/17 06:05 Calcium 8.6 mg/dL (8.5-10.1) 12/29/17 04:52 Corrected Calcium 9.2 mg/dL (8.5-10.1) 12/29/17 04:52 Total Bilirubin 0.70 mg/dL (0.2-1.0) 12/29/17 04:52 AST 19 Units/L (15-37) 12/29/17 04:52 ALT 21 Units/L (12-78) 12/29/17 04:52 Alkaline Phosphatase 92 Units/L (46-116) 12/29/17 04:52 Creatine Kinase 53 Units/L (26-192) 12/28/17 03:08 CK-MB (CK-2) < 1.0 ng/mL (0-4.0) 12/28/17 03:08 CK/CKMB % Calc 1.9 % (<4) 12/28/17 03:08 Troponin I < 0.02 ng/mL (0-1.5) 12/28/17 03:08 Total Protein 6.6 g/dL (6.4-8.2) 12/29/17 04:52 Albumin 3.2 g/dL (3.4-5.0) L 12/29/17 04:52 Globulin 3.4 g/dL (2.5-4.5) 12/29/17 04:52 Albumin/Globulin Ratio 0.9 Ratio (1.1-2.1) L 12/29/17 04:52 Amylase 69 Units/L (25-115) 12/27/17 09:57 Lipase 115 Units/L (73-393) 12/27/17 09:57 Specimen Type Random urine 12/27/17 12:27 Urine Color Yellow (YELLOW) 12/27/17 12:27 Urine Appearance Cloudy (CLEAR) 12/27/17 12:27 Urine pH 8.0 (5.0 - 8.0) 12/27/17 12:27 Ur Specific [place] 1.010 (1.000-1.030) 12/27/17 12:27 Urine Protein Negative (NEGATIVE) 12/27/17 12:27 Urine Glucose (UA) Negative (NEGATIVE) 12/27/17 12:27 Urine Ketones Negative (NEGATIVE) 12/27/17 12:27 Urine Occult Blood 1+ (NEGATIVE) 12/27/17 12:27 Urine Nitrite Positive (NEGATIVE) 12/27/17 12:27 Urine Bilirubin Negative (NEGATIVE) 12/27/17 12:27 Urine Urobilinogen Normal (NORMAL) 12/27/17 12:27 Ur Leukocyte Esterase 2+ (NEGATIVE) 12/27/17 12:27 Urine RBC 0-2 /HPF (NONE SEEN) 12/27/17 12:27 Urine WBC 0-2 /HPF (NONE SEEN) 12/27/17 12:27 Ur Squamous Epith Cells Few /HPF (NEGATIVE) 12/27/17 12:27 Urine Bacteria 2+ /HPF (NEGATIVE) 12/27/17 12:27 Ur Culture Indicated? No/not indicated 12/27/17 12:27 - Plan (1) Abdominal pain Status: Acute Qualifiers: Abdominal location: left lower quadrant Qualified Code(s): R10.32 - Left lower quadrant pain Plan: ADMIT, NORMAL SALINE AT 75ML/HR, MORPHINE 1-2MG IV Q4H PRN PAIN, KUB IN AM , CONTINUE TO MONITOR (2) Urinary tract infection Status: Acute Qualifiers: Urinary tract infection type: acute cystitis Hematuria presence: without hematuria Qualified Code(s): N30.00 - Acute cystitis without hematuria Plan: CIPRO 400MG IV Q12H, CONTINUE TO MONITOR
--- NOTE | 2018-02-07 21:36 | DR.CARTERD ---
- Discharge Summary for: Discharge Summary for Date of:: 12/29/17 - Admission Date Date of Admission: 12/27/17 - Admission Diagnoses Admission Diagnosis: (1) Abdominal pain (2) Urinary tract infection - Discharge Date Discharge Date: 12/29/17 - Discharge Diagnoses Discharge Diagnosis: (1) Abdominal pain (2) Urinary tract infection - Hospital Course Hospital Course: Day one, Ms. Mccracken is a 82 year old patient of ours who presented to the emergency room with reports of severe abdominal pain. Patient reported symptoms started last evening and had become increasingly worse. She reported moderate pain to the left lower quadrants. Patient noted with moderate tenderness on palpation of abdomen. Medical History included: Cataracts, Glaucoma, CAD, [place], Hypertension, Asthma, Bronchitis, Pneumonia, COPD, Muscle Weakness, Arthritis, Gout, Back Pain, DM type II, Skin CA. On arrival, vitals were 97.9, 79, 20, 99% RA, 208/91. Labs were obtained. Abnormal lab values included the following: Sodium 135, Glucose 132, A/G Ratio 1.0. Urinalysis: Cloudy, Occult Blood 1+, Nitrite Positive, Leuk Est 2+, RBC 0-2, WBC 0-2, Bacteria 2+. EKG: Sinus Rhythm, rate=63. An abdomen and pelvis CT obtained revealed questionable mild mucosal thickening in several loops of distal small bowel. There may be an associated early ileus or less likely a developing distal partial small bowel obstruction. Patient admitted to the hospital as observation for further evaluation and treatment. Patient held NPO. Patient started on IV fluids and pain medications. We continued to monitor. Day two, She was alert and oriented. She continued with abdominal pain, but reported that it was more diffuse. On examination, abdomen was round, soft, and noted with mild, diffuse tenderness on palpation. Vitals were stable. A KUB was obtained and reported: The abdominal gas pattern is nonspecific and nonobstructive. No abnormal masses or abnormal calcifications are identified. The regional skeleton is intact. We continued with Cipro IV and IV fluids. Day three, patient reported she was feeling better. She reported abdominal pain had improved. On examination, no tenderness was noted. Vital signs stable. Labs wnl. We planned for discharge. Instructions for medications and follow up were discussed with patient and family, both voiced understanding. Patient discharged home in stable condition with family. - Discharge Medications Discharge Medications: Home Medication List fluticasone-salmeterol 1 inh INHALATION BID 12/27/17 [History] montelukast 10 mg PO DAILY 12/27/17 [History] benzonatate 100 mg PO TID 12/28/17 [History] ciprofloxacin HCl [Cipro] 500 mg PO BID #10 tab 12/29/17 [Rx] Prescriptions: ciprofloxacin HCl [Cipro] Rosalino Brenner Home medications Losartan/Hydrochlorothiazide [Losartan-Hctz 100-12.5 mg Tab] 1 each PO DAILY 06/06/17 aspirin 1 tab PO DAILY 06/06/17 clopidogrel [Plavix] 75 mg PO DAILY 06/06/17 glimepiride 1 tab PO BID 06/06/17 metformin 1 tab PO HS 06/06/17 simvastatin 20 mg PO HS 06/06/17 ipratropium-albuterol 1 neb NEB TID #90 each 06/08/17 albuterol sulfate [ProAir HFA] 1 puff PO BID 06/10/17 - Discharge Disposition Discharge Disposition: Patient is to follow up in our office in one week.
== END 2017-12-29 11:45 | disposition home or self-care (01) ==
LOC: ER 09:19 → MED/SURG 09:19
PROVIDERS: ADMIT Internal Medicine; ATTEND Internal Medicine
DX: N30.00 Acute cystitis without hematuria; E11.649 Type 2 diabetes mellitus with hypoglycemia without coma; Z79.01 Long term (current) use of anticoagulants; R94.31 Abnormal electrocardiogram [ECG] [EKG]; I10 Essential (primary) hypertension; R26.89 Other abnormalities of gait and mobility; R93.5 Abnormal findings on diagnostic imaging of other abdominal regions, including retroperitoneum; R10.32 Left lower quadrant pain; I25.10 Atherosclerotic heart disease of native coronary artery without angina pectoris
CPT/HCPCS: 36415; 74000; 74018; 74176; 80053; 81001; 82150; 82550; 82553; 83690; 84484; 85025; 93005; 96365; 96367; 96374; 96375; 97110; 97161; 97167; 97535; 99283; 99284; A4222; G0378; J0744; J2270; J2405; J7030; J7060

== ENCOUNTER 2018-08-28 10:51 | Observation (INO) ==
[2018-08-28] MEDS ORDERED: MORPHINE SULFATE INJ 2 MG INJ IVP PRN (15:08)
[2018-08-28] MEDS ORDERED: NITROSTAT SL PRN (15:08)
[2018-08-28] MEDS: PLAVIX PO SCH (15:37)
[2018-08-28] MEDS: ASPIRIN PO SCH (15:37)
[2018-08-28] MEDS: PEPCID TAB 20 MG PO SCH ×2 (15:37→21:27)
[2018-08-28] MEDS: COZAAR PO SCH (15:37)
[2018-08-28] MEDS: HYDROCHLOROTHIAZIDE 12.5 MG CAP PO SCH (15:37)
[2018-08-28 15:44] LABS: BASOPHILS % (AUTO) 0.7 % (0.2-1.0); EOSINOPHILS # (AUTO) 0.2 x10^3/uL (0.0-0.2); EOSINOPHILS % (AUTO) 2.9 % (0.9-2.9); HEMOGLOBIN 12.4 g/dL (12.0-16.0); LYMPHOCYTES # (AUTO) 1.3 X10^3/uL (1.3-2.9); LYMPHOCYTES % (AUTO) 19.7 % (21.0-51.0); MEAN CORPUSCULAR HEMOGLOBIN 28.2 pg (27.0-34.0); MEAN CORPUSCULAR HGB CONC 33.6 g/dL (33.0-35.0); MEAN CORPUSCULAR VOLUME 84.1 fL (80.0-100.0); MEAN PLATELET VOLUME 7.6 fL (7.4-11.0); MONOCYTES # (AUTO) 0.8 x10^3/uL (0.3-0.8); MONOCYTES % (AUTO) 11.5 % (0.0-13.0); NEUTROPHILS # (AUTO) 4.4 x10^3/uL (2.2-4.8); NEUTROPHILS % (AUTO) 65.2 % (42.0-75.0); PLATELET COUNT 285 X10^3/uL (150.0-450.0); RED BLOOD COUNT 4.41 X10^6/uL (3.5-5.4); RED CELL DISTRIBUTION WIDTH 13.5 % (11.6-16.5); WHITE BLOOD COUNT 6.7 X10^3/uL (3.6-10.0)
[2018-08-28 15:59] LABS: ALANINE AMINOTRANSFERASE 14 Units/L (12-78); ALBUMIN 3.2 g/dL (3.4-5.0); ALKALINE PHOSPHATASE 111 Units/L (46-116); ASPARTATE AMINO TRANSFERASE 14 Units/L (15-37); BLOOD UREA NITROGEN 9 mg/dL (7-18); CARBON DIOXIDE 28.2 mmol/L (21-32); CHLORIDE 102 mmol/L (98-107); COR CA(FOR HYPOALB) 9.6 mg/dL (8.5-10.1); COR NA(FOR HYPERGLY) 141 mmol/L (136-145); CREATININE 0.88 mg/dL (0.55-1.02); MAGNESIUM 1.8 mg/dL (1.7-2.9); SODIUM 139 mmol/L (136-145); TOTAL PROTEIN 6.6 g/dL (6.4-8.2); eGFR NON BLACK RACES > 60 (>60)
--- NOTE | 2018-08-28 16:03 | RAD ---
STUDY: CHEST, ONE VIEW History: Chest pain. Shortness of breath. Comparison: CT from June 12, 2017. Findings: The trachea is midline. There are changes of COPD in both lungs. There is some prominence of pulmonary interstitial markings bilaterally. There is no evidence of consolidation, significant infiltrate, effusion, or pneumothorax. The cardiac silhouette, mediastinum and osseous structures are unremarkable. IMPRESSION: 1. No evidence of acute cardiopulmonary abnormality. 2. COPD. Reported By:
[2018-08-28 16:08] LABS: CREATINE KINASE 49 Units/L (26-192); CREATINE KINASE MB < 1.0 ng/mL (0-4.0); TROPONIN I < 0.02 ng/mL (0-1.5)
[2018-08-28] MEDS: PROVENTIL NEB TX 0.083% 2.5MG/ 3ML NEB SCH ×4 (16:27→20:23)
[2018-08-28 16:55] VITALS: BMI 23.0
[2018-08-28 20:08] LABS: BILIRUBIN,URINE NEGATIVE (NEGATIVE); BLOOD/HEMOGLOBIN,URINE 2+ (NEGATIVE); GLUCOSE, URINE NEGATIVE (NEGATIVE); KETONES,URINE NEGATIVE (NEGATIVE); LEUKOCYTE ESTERASE ,URINE NEGATIVE (NEGATIVE); NITRITES,URINE NEGATIVE (NEGATIVE); PH,URINE 6.5 (5.0 - 8.0); PROTEIN,URINE NEGATIVE (NEGATIVE); UROBILINOGEN,URINE NORMAL (NORMAL)
[2018-08-28] MEDS: PULMICORT NEB TX 0.5 MG NEB SCH (20:23)
[2018-08-28 20:29] LABS: APPEARANCE,URINE CLEAR (CLEAR); BACTERIA,URINE NEGATIVE /HPF (NEGATIVE); COLOR,URINE PALE YELLOW (YELLOW); RBC,URINE 0-2 /HPF (NONE SEEN); SQUAMOUS EPITHELIAL CELL,UR RARE /HPF (NEGATIVE)
[2018-08-28] MEDS ORDERED: PATIENT'S HOME MEDICATION (Fluticasone Propion-Salmeterol [Fluticasone Propion-Salmeterol] IN SCH (21:00)
[2018-08-28] MEDS ORDERED: GLUCOPHAGE ONE (21:24)
[2018-08-28] MEDS: ZOCOR TAB 20 MG PO SCH (21:27)
[2018-08-28] MEDS: GLUCOPHAGE PO SCH (21:27)
[2018-08-28] MEDS: AMARYL TAB 4 MG PO SCH (21:27)
[2018-08-28] MEDS: ATIVAN TAB 1 MG PO PRN (21:29)
[2018-08-28 21:38] LABS: CKMB % 2.1 % (<4); CREATINE KINASE 48 Units/L (26-192); CREATINE KINASE MB < 1.0 ng/mL (0-4.0); TROPONIN I < 0.02 ng/mL (0-1.5)
[2018-08-28] MEDS ORDERED: POTASSIUM CHL 40 MEQ/NS 0.45% 500 ML IV PRN (22:46)
[2018-08-28] MEDS ORDERED: POTASSIUM CHLORIDE LIQ 20 MEQ UDC PO PRN (22:46)
[2018-08-28] MEDS ORDERED: KLOR-CON PO PRN (22:46)
[2018-08-28] MEDS ORDERED: K-RIDER 10 MEQ/NS 100 ML 10 MEQ/100 ML BAG IV PRN (22:46)
[2018-08-28] MEDS ORDERED: POTASSIUM CHL 60 MEQ/NS 0.45% 500 ML IV PRN (22:46)
[2018-08-28] MEDS ORDERED: K-DUR TAB 20 MEQ PO PRN (22:46)
[2018-08-28] MEDS ORDERED: MAGNESIUM SULFATE 1 GRAM/100 mL PREMIX 1 GM/100 ML BAG IV PRN (22:46)
[2018-08-28] MEDS ORDERED: MICRO K EXTEN CAP 10 MEQ PO PRN (22:46)
[2018-08-29 05:12] LABS: BASOPHILS % (AUTO) 0.7 % (0.2-1.0); EOSINOPHILS # (AUTO) 0.2 x10^3/uL (0.0-0.2); EOSINOPHILS % (AUTO) 3.3 % (0.9-2.9); HEMATOCRIT 35.2 % (36.0-47.0); HEMOGLOBIN 11.8 g/dL (12.0-16.0); LYMPHOCYTES # (AUTO) 1.4 X10^3/uL (1.3-2.9); LYMPHOCYTES % (AUTO) 23.8 % (21.0-51.0); MEAN CORPUSCULAR HEMOGLOBIN 28.3 pg (27.0-34.0); MEAN CORPUSCULAR HGB CONC 33.7 g/dL (33.0-35.0); MEAN CORPUSCULAR VOLUME 84.1 fL (80.0-100.0); MEAN PLATELET VOLUME 7.8 fL (7.4-11.0); MONOCYTES # (AUTO) 0.8 x10^3/uL (0.3-0.8); MONOCYTES % (AUTO) 13.1 % (0.0-13.0); NEUTROPHILS # (AUTO) 3.4 x10^3/uL (2.2-4.8); NEUTROPHILS % (AUTO) 59.1 % (42.0-75.0); PLATELET COUNT 288 X10^3/uL (150.0-450.0); RED BLOOD COUNT 4.18 X10^6/uL (3.5-5.4); RED CELL DISTRIBUTION WIDTH 13.5 % (11.6-16.5); WHITE BLOOD COUNT 5.8 X10^3/uL (3.6-10.0)
[2018-08-29 05:29] LABS: ALANINE AMINOTRANSFERASE 14 Units/L (12-78); ALKALINE PHOSPHATASE 104 Units/L (46-116); ASPARTATE AMINO TRANSFERASE 10 Units/L (15-37); BLOOD UREA NITROGEN 8 mg/dL (7-18); CALCIUM 8.8 mg/dL (8.5-10.1); CARBON DIOXIDE 26.5 mmol/L (21-32); CHLORIDE 103 mmol/L (98-107); CHOL/HDL RATIO 3.2 (0.0-5.0); CHOLESTEROL 161 mg/dL (0-200); CKMB % 2.3 % (<4); COR CA(FOR HYPOALB) 9.6 mg/dL (8.5-10.1); COR NA(FOR HYPERGLY) 140 mmol/L (136-145); CREATINE KINASE 43 Units/L (26-192); CREATINE KINASE MB < 1.0 ng/mL (0-4.0); CREATININE 0.87 mg/dL (0.55-1.02); HDL CHOLESTEROL 50 mg/dL (40-60); SODIUM 140 mmol/L (136-145); TOTAL PROTEIN 6.1 g/dL (6.4-8.2); TRIGLYCERIDES 75 mg/dL (0-150); TROPONIN I < 0.02 ng/mL (0-1.5); eGFR NON BLACK RACES > 60 (>60)
[2018-08-29] MEDS: PROVENTIL NEB TX 0.083% 2.5MG/ 3ML NEB SCH ×4 (08:45→21:07)
[2018-08-29] MEDS: PULMICORT NEB TX 0.5 MG NEB SCH ×2 (08:45→21:07)
--- NOTE | 2018-08-29 08:52 | DR.UPDATE ---
H&P Update History and Physical Update: WAS SEEN IN THE OFFICE TODAY FOR CHEST PAIN WITH RADIATION TO THE NECK AND LEFT ARM. SHE WAS ADMITTED FOR FURTHER EVALUATION AND TREATMENT. A H&P WAS COMPLETED ON ADMISSION. WE WILL OBTAIN LABS, SERIAL CARDIAC ENZYMES AND EKGS, AND PLACE ON TELEMETRY. PATIENT HAS BEEN SEEN AND EXAMINED WITH NO OTHER CHANGES NOTED TO H&P. Changes noted: NO
[2018-08-29] MEDS: ASPIRIN PO SCH (09:25)
[2018-08-29] MEDS: SINGULAIR TAB 10 MG PO SCH (09:26)
[2018-08-29] MEDS: AMARYL TAB 4 MG PO SCH ×2 (09:27→21:34)
[2018-08-29] MEDS: PLAVIX PO SCH (09:27)
[2018-08-29] MEDS: PEPCID TAB 20 MG PO SCH ×2 (09:27→21:34)
[2018-08-29] MEDS: COZAAR PO SCH (09:28)
[2018-08-29] MEDS: HYDROCHLOROTHIAZIDE 12.5 MG CAP PO SCH (09:28)
--- NOTE | 2018-08-29 12:40 | CT ---
CT CHEST WITH IV CONTRAST HISTORY: Chest pain with shortness of breath Comparison: 06/12/2018 Technique: Multiple axial images of the chest were obtained from the thoracic inlet to the upper abdomen after the administration of IV contrast.Dose reduction techniques including Automated Exposure Control (AEC) and adjustment of mA and kV were utlized. Findings: The heart is normal in size. No pericardial effusion. Severe coronary calcification. [place] mediastinal adenopathy is unchanged from prior with the largest being a precarinal node measuring 1.4 cm, previously 1.4 cm. Although not optimized to detect pulmonary embolism, no large central pulmonary emboli are seen. No focal consolidations, pleural effusions or pneumothorax. Airways are patent. Stable 1.3 cm ground-glass nodule in the left upper lobe on series 5, image 13. Limited images of the upper abdomen are unremarkable. No aggressive osseous lesions. IMPRESSION: 1. 1.3 cm left upper lobe ground-glass nodule which is unchanged from 3 months prior. Recommend correlation with more distant prior exams if available to confirm stability. Otherwise, CT in 3 months to confirm persistence, then CT every 2 years until 5 years. http://pubs.[facility].org/doi/[email or web address] Reported By:
[2018-08-29] MEDS ORDERED: GLUCOPHAGE ONE (20:40)
[2018-08-29] MEDS: ZOCOR TAB 20 MG PO SCH (21:35)
[2018-08-29] MEDS: GLUCOPHAGE PO SCH (21:35)
[2018-08-30 05:18] LABS: BASOPHILS % (AUTO) 0.6 % (0.2-1.0); EOSINOPHILS # (AUTO) 0.2 x10^3/uL (0.0-0.2); EOSINOPHILS % (AUTO) 3.9 % (0.9-2.9); HEMATOCRIT 35.9 % (36.0-47.0); HEMOGLOBIN 12.1 g/dL (12.0-16.0); LYMPHOCYTES # (AUTO) 1.1 X10^3/uL (1.3-2.9); LYMPHOCYTES % (AUTO) 17.8 % (21.0-51.0); MEAN CORPUSCULAR HEMOGLOBIN 28.6 pg (27.0-34.0); MEAN CORPUSCULAR HGB CONC 33.8 g/dL (33.0-35.0); MEAN CORPUSCULAR VOLUME 84.7 fL (80.0-100.0); MEAN PLATELET VOLUME 7.8 fL (7.4-11.0); MONOCYTES # (AUTO) 0.7 x10^3/uL (0.3-0.8); NEUTROPHILS # (AUTO) 4.2 x10^3/uL (2.2-4.8); NEUTROPHILS % (AUTO) 66.7 % (42.0-75.0); PLATELET COUNT 292 X10^3/uL (150.0-450.0); RED BLOOD COUNT 4.24 X10^6/uL (3.5-5.4); RED CELL DISTRIBUTION WIDTH 13.3 % (11.6-16.5); WHITE BLOOD COUNT 6.3 X10^3/uL (3.6-10.0)
[2018-08-30 05:33] LABS: ALANINE AMINOTRANSFERASE 14 Units/L (12-78); ALBUMIN 3.1 g/dL (3.4-5.0); ALKALINE PHOSPHATASE 110 Units/L (46-116); ASPARTATE AMINO TRANSFERASE 13 Units/L (15-37); BLOOD UREA NITROGEN 14 mg/dL (7-18); CALCIUM 9.1 mg/dL (8.5-10.1); CARBON DIOXIDE 25.6 mmol/L (21-32); CHLORIDE 105 mmol/L (98-107); COR CA(FOR HYPOALB) 9.8 mg/dL (8.5-10.1); CREATININE 0.89 mg/dL (0.55-1.02); SODIUM 141 mmol/L (136-145); TOTAL PROTEIN 6.5 g/dL (6.4-8.2); eGFR NON BLACK RACES > 60 (>60)
[2018-08-30] MEDS: PLAVIX PO SCH (09:08)
[2018-08-30] MEDS: HYDROCHLOROTHIAZIDE 12.5 MG CAP PO SCH (09:08)
[2018-08-30] MEDS: COZAAR PO SCH (09:08)
[2018-08-30] MEDS: PEPCID TAB 20 MG PO SCH ×2 (09:08→21:45)
[2018-08-30] MEDS: AMARYL TAB 4 MG PO SCH ×2 (09:08→21:45)
[2018-08-30] MEDS: ASPIRIN PO SCH (09:08)
[2018-08-30] MEDS: SINGULAIR TAB 10 MG PO SCH (09:08)
[2018-08-30] MEDS: PROVENTIL NEB TX 0.083% 2.5MG/ 3ML NEB SCH ×4 (09:48→20:58)
[2018-08-30] MEDS: TESSALON PERLES PO SCH ×3 (10:45→21:44)
[2018-08-30] MEDS: LOVENOX INJ 30 MG SYR SC SCH (10:46)
[2018-08-30] MEDS: PULMICORT NEB TX 0.5 MG NEB SCH ×2 (12:12→20:58)
[2018-08-30] MEDS: ATIVAN TAB 1 MG PO PRN (12:14)
--- NOTE | 2018-08-30 18:19 | PCM.PROG ---
Progress Note - Progress Note for Day of Date of Exam: 08/29/18 - Subjective Subjective: WAS ADMITTED FOR CHEST PAIN, RULE OUT ACUTE [place] AND SHORTNESS OF BREATH. SHE CONTINUES WITH SHORTNESS OF BREATH AND COUGH TODAY. SHE STATES THAT CHEST PAIN COMES AND GOES. ON EXAMINATION, HEART IS REGULAR IN RATE AND RHYTHM. BILATERAL LUNGS ARE NOTED WITH DIMINISHED LUNG SOUNDS THROUGHOUT. ABDOMEN IS ROUND, SOFT, AND NON-TENDER WITH NORMAL BOWEL SOUNDS NOTED IN ALL QUADRANTS. HER VITALS THIS MORNING ARE 98.3-79-20-98%-125/70. LABS WERE OBTAINED. ABNORMAL LAB VALUES INCLUDE THE FOLLOWING: HGB 11.8, HCT 35.2, GLUCOSE 112, AST 10, TOTAL PROTEIN 6.1, ALBUMIN 3.0. CARDIAC ENZYMES AND EKGS HAVE BEEN WITHIN NORMAL LIMITS. TODAY, WE WILL OBTAIN A CHEST CT WITH CONTRAST. OTHERWISE, WE WILL CONTINUE WITH CURRENT PLAN OF CARE. WE WILL FOLLOW-UP WITH AM LABS AND CONTINUE TO MONITOR. - Past Medical Family Social History Past Med/Fam/Surg Hx: No changes since H&P Allergies: Allergies atorvastatin [From Lipitor] Allergy (Verified 06/06/17 18:00) codeine Allergy (Verified 06/06/17 18:01) Penicillins Allergy (Verified 06/06/17 18:00) ANY COUGH SYRUP Allergy (Uncoded 06/06/17 18:02) - Review of Systems ROS: No change since H&P - Vital Signs and I&O's Vital Signs: Temperature 98.3 F Pulse Rate [Right Brachial] 93 Pulse Rate 88 Respiratory Rate 20 Blood Pressure [Right Arm] 143/66 Blood Pressure [Left Arm] 130/59 Blood Pressure 128/60 O2 Sat by Pulse Oximetry 98 Intake and Output: Intake & Output 08/28/18 08/29/18 08/30/18 08/31/18 11:59 11:59 11:59 11:59 Intake Total 700 / 700 1530 / 1530 480 / 480 Balance 700 / 700 1530 / 1530 480 / 480 - Physical Exam Oriented: Normal Eyes: Normal Ear: Normal Nose: Normal Throat: Normal Respiratory: Generalized, Diminished Cardiovascular: Normal. negative: S3, S4, Murmur : Normal Auscultation: Bowel Sounds: Normal Palpation: Normal Tenderness: Normal Skin: Normal Musculoskeletal: Normal Psychiatric: Normal Mood Description: Calm Affect: Normal Speech Pattern: Clear, Appropriate - Laboratory and Diagnostics Result Diagrams: 08/30/18 04:57 08/30/18 04:57 Labs: Laboratory WBC 6.3 X10^3/uL (3.6-10.0) 08/30/18 04:57 RBC 4.24 X10^6/uL (3.5-5.4) 08/30/18 04:57 Hgb 12.1 g/dL (12.0-16.0) 08/30/18 04:57 Hct 35.9 % (36.0-47.0) L 08/30/18 04:57 MCV 84.7 fL (80.0-100.0) 08/30/18 04:57 MCH 28.6 pg (27.0-34.0) 08/30/18 04:57 MCHC 33.8 g/dL (33.0-35.0) 08/30/18 04:57 RDW 13.3 % (11.6-16.5) 08/30/18 04:57 Plt Count 292 X10^3/uL (150.0-450.0) 08/30/18 04:57 MPV 7.8 fL (7.4-11.0) 08/30/18 04:57 Neut % (Auto) 66.7 % (42.0-75.0) 08/30/18 04:57 Lymph % (Auto) 17.8 % (21.0-51.0) L 08/30/18 04:57 [place] % (Auto) 11.0 % (0.0-13.0) 08/30/18 04:57 Eos % (Auto) 3.9 % (0.9-2.9) H 08/30/18 04:57 Baso % (Auto) 0.6 % (0.2-1.0) 08/30/18 04:57 Neut # (Auto) 4.2 x10^3/uL (2.2-4.8) 08/30/18 04:57 Lymph # (Auto) 1.1 X10^3/uL (1.3-2.9) L 08/30/18 04:57 [place] # (Auto) 0.7 x10^3/uL (0.3-0.8) 08/30/18 04:57 Eos # (Auto) 0.2 x10^3/uL (0.0-0.2) 08/30/18 04:57 Baso # (Auto) 0.0 X10^3/uL (0.0-0.1) 08/30/18 04:57 Absolute Nucleated RBC 0.1 /100WBC 08/30/18 04:57 INR Target Range - 08/28/18 15:32 INR 0.95 (0.8-1.3) 08/28/18 15:32 APTT 29.6 SECONDS (22.9-36.5) 08/28/18 15:32 PTT Comment - 08/28/18 15:32 Sodium 141 mmol/L (136-145) 08/30/18 04:57 Corrected Sodium TNP 08/30/18 04:57 Potassium 4.0 mmol/L (3.5-5.1) 08/30/18 04:57 Chloride 105 mmol/L (98-107) 08/30/18 04:57 Carbon Dioxide 25.6 mmol/L (21-32) 08/30/18 04:57 BUN 14 mg/dL (7-18) 08/30/18 04:57 Creatinine 0.89 mg/dL (0.55-1.02) 08/30/18 04:57 Est GFR (MDRD) Af Amer > 60 (>60) 08/30/18 04:57 Est GFR (MDRD) Non-Af > 60 (>60) 08/30/18 04:57 Glucose 80 mg/dL (65-99) 08/30/18 04:57 Calcium 9.1 mg/dL (8.5-10.1) 08/30/18 04:57 Corrected Calcium 9.8 mg/dL (8.5-10.1) 08/30/18 04:57 Magnesium 1.9 mg/dL (1.7-2.9) 08/29/18 04:43 Total Bilirubin 0.30 mg/dL (0.2-1.0) 08/30/18 04:57 AST 13 Units/L (15-37) L 08/30/18 04:57 ALT 14 Units/L (12-78) 08/30/18 04:57 Alkaline Phosphatase 110 Units/L (46-116) 08/30/18 04:57 Creatine Kinase 43 Units/L (26-192) 08/29/18 04:43 CK-MB (CK-2) < 1.0 ng/mL (0-4.0) 08/29/18 04:43 CK/CKMB % Calc 2.3 % (<4) 08/29/18 04:43 Troponin I < 0.02 ng/mL (0-1.5) 08/29/18 04:43 Total Protein 6.5 g/dL (6.4-8.2) 08/30/18 04:57 Albumin 3.1 g/dL (3.4-5.0) L 08/30/18 04:57 Globulin 3.4 g/dL (2.5-4.5) 08/30/18 04:57 Albumin/Globulin Ratio 0.9 Ratio (1.1-2.1) L 08/30/18 04:57 Triglycerides 75 mg/dL (0-150) 08/29/18 04:43 Cholesterol 161 mg/dL (0-200) 08/29/18 04:43 LDL Cholesterol, Calc 96 mg/dL (0-100) 08/29/18 04:43 HDL Cholesterol 50 mg/dL (40-60) 08/29/18 04:43 Cholesterol/HDL Ratio 3.2 (0.0-5.0) 08/29/18 04:43 Specimen Type Clean catch urine 08/28/18 19:55 Urine Color Pale yellow (YELLOW) 08/28/18 19:55 Urine Appearance Clear (CLEAR) 08/28/18 19:55 Urine pH 6.5 (5.0 - 8.0) 08/28/18 19:55 Ur Specific [place] 1.010 (1.000-1.030) 08/28/18 19:55 Urine Protein Negative (NEGATIVE) 08/28/18 19:55 Urine Glucose (UA) Negative (NEGATIVE) 08/28/18 19:55 Urine Ketones Negative (NEGATIVE) 08/28/18 19:55 Urine Occult Blood 2+ (NEGATIVE) 08/28/18 19:55 Urine Nitrite Negative (NEGATIVE) 08/28/18 19:55 Urine Bilirubin Negative (NEGATIVE) 08/28/18 19:55 Urine Urobilinogen Normal (NORMAL) 08/28/18 19:55 Ur Leukocyte Esterase Negative (NEGATIVE) 08/28/18 19:55 Urine RBC 0-2 /HPF (NONE SEEN) 08/28/18 19:55 Urine WBC None seen /HPF (NONE SEEN) 08/28/18 19:55 Ur Squamous Epith Cells Rare /HPF (NEGATIVE) 08/28/18 19:55 Urine Bacteria Negative /HPF (NEGATIVE) 08/28/18 19:55 Ur Culture Indicated? No/not indicated 08/28/18 19:55 - Plan (1) Chest pain, rule out acute myocardial infarction Status: Acute Plan: TELEMETRY, OBTAIN CHEST CT, CONTINUE TO MONITOR. (2) Shortness of breath Status: Acute
--- NOTE | 2018-08-30 18:31 | PCM.PROG ---
Progress Note - Progress Note for Day of Date of Exam: 08/30/18 - Subjective Subjective: WAS ADMITTED FOR CHEST PAIN, RULE OUT ACUTE SC AND SHORTNESS OF BREATH. SHE CONTINUES WITH SHORTNESS OF BREATH, COUGH, AND INTERMITTENT CHEST PAIN TODAY. ON EXAMINATION, HEART IS REGULAR IN RATE AND RHYTHM. BILATERAL LUNGS ARE NOTED WITH DIMINISHED LUNG SOUNDS THROUGHOUT. ABDOMEN IS ROUND, SOFT, AND NON-TENDER WITH NORMAL BOWEL SOUNDS NOTED IN ALL QUADRANTS. HER VITALS THIS MORNING ARE 98.7-92-20-97%-175/75. LABS WERE OBTAINED. ABNORMAL LAB VALUES INCLUDE THE FOLLOWING: HCT 35.9, AST 13, ALBUMIN 3.1. A CHEST CT WAS OBTAINED TODAY AND REVEALED: 1.3 cm left upper lobe ground-glass nodule which is unchanged from 3 months prior. Recommend correlation with more distant prior exams if available to confirm stability. Otherwise, CT in 3 months to confirm persistence, then CT every 2 years until 5 years. WE WILL FOLLOW-UP WITH AM LABS AND CONTINUE TO MONITOR TODAY. - Past Medical Family Social History Past Med/Fam/Surg Hx: No changes since H&P Allergies: Allergies atorvastatin [From Lipitor] Allergy (Verified 06/06/17 18:00) codeine Allergy (Verified 06/06/17 18:01) Penicillins Allergy (Verified 06/06/17 18:00) ANY COUGH SYRUP Allergy (Uncoded 06/06/17 18:02) - Review of Systems ROS: No change since H&P - Vital Signs and I&O's Vital Signs: Temperature 98.3 F Pulse Rate [Right Brachial] 93 Pulse Rate 88 Respiratory Rate 20 Blood Pressure [Right Arm] 143/66 Blood Pressure [Left Arm] 130/59 Blood Pressure 128/60 O2 Sat by Pulse Oximetry 98 Intake and Output: Intake & Output 08/28/18 08/29/18 08/30/18 08/31/18 11:59 11:59 11:59 11:59 Intake Total 700 / 700 1530 / 1530 480 / 480 Balance 700 / 700 1530 / 1530 480 / 480 - Physical Exam Oriented: Normal Eyes: Normal Ear: Normal Nose: Normal Throat: Normal Respiratory: Generalized, Diminished Cardiovascular: Normal. negative: S3, S4, Murmur : Normal Auscultation: Bowel Sounds: Normal Palpation: Normal Tenderness: Normal Skin: Normal Musculoskeletal: Normal Psychiatric: Normal Mood Description: Calm Affect: Normal Speech Pattern: Clear, Appropriate - Laboratory and Diagnostics Result Diagrams: 08/30/18 04:57 08/30/18 04:57 Labs: Laboratory WBC 6.3 X10^3/uL (3.6-10.0) 08/30/18 04:57 RBC 4.24 X10^6/uL (3.5-5.4) 08/30/18 04:57 Hgb 12.1 g/dL (12.0-16.0) 08/30/18 04:57 Hct 35.9 % (36.0-47.0) L 08/30/18 04:57 MCV 84.7 fL (80.0-100.0) 08/30/18 04:57 MCH 28.6 pg (27.0-34.0) 08/30/18 04:57 MCHC 33.8 g/dL (33.0-35.0) 08/30/18 04:57 RDW 13.3 % (11.6-16.5) 08/30/18 04:57 Plt Count 292 X10^3/uL (150.0-450.0) 08/30/18 04:57 MPV 7.8 fL (7.4-11.0) 08/30/18 04:57 Neut % (Auto) 66.7 % (42.0-75.0) 08/30/18 04:57 Lymph % (Auto) 17.8 % (21.0-51.0) L 08/30/18 04:57 [place] % (Auto) 11.0 % (0.0-13.0) 08/30/18 04:57 Eos % (Auto) 3.9 % (0.9-2.9) H 08/30/18 04:57 Baso % (Auto) 0.6 % (0.2-1.0) 08/30/18 04:57 Neut # (Auto) 4.2 x10^3/uL (2.2-4.8) 08/30/18 04:57 Lymph # (Auto) 1.1 X10^3/uL (1.3-2.9) L 08/30/18 04:57 [place] # (Auto) 0.7 x10^3/uL (0.3-0.8) 08/30/18 04:57 Eos # (Auto) 0.2 x10^3/uL (0.0-0.2) 08/30/18 04:57 Baso # (Auto) 0.0 X10^3/uL (0.0-0.1) 08/30/18 04:57 Absolute Nucleated RBC 0.1 /100WBC 08/30/18 04:57 INR Target Range - 08/28/18 15:32 INR 0.95 (0.8-1.3) 08/28/18 15:32 APTT 29.6 SECONDS (22.9-36.5) 08/28/18 15:32 PTT Comment - 08/28/18 15:32 Sodium 141 mmol/L (136-145) 08/30/18 04:57 Corrected Sodium TNP 08/30/18 04:57 Potassium 4.0 mmol/L (3.5-5.1) 08/30/18 04:57 Chloride 105 mmol/L (98-107) 08/30/18 04:57 Carbon Dioxide 25.6 mmol/L (21-32) 08/30/18 04:57 BUN 14 mg/dL (7-18) 08/30/18 04:57 Creatinine 0.89 mg/dL (0.55-1.02) 08/30/18 04:57 Est GFR (MDRD) Af Amer > 60 (>60) 08/30/18 04:57 Est GFR (MDRD) Non-Af > 60 (>60) 08/30/18 04:57 Glucose 80 mg/dL (65-99) 08/30/18 04:57 Calcium 9.1 mg/dL (8.5-10.1) 08/30/18 04:57 Corrected Calcium 9.8 mg/dL (8.5-10.1) 08/30/18 04:57 Magnesium 1.9 mg/dL (1.7-2.9) 08/29/18 04:43 Total Bilirubin 0.30 mg/dL (0.2-1.0) 08/30/18 04:57 AST 13 Units/L (15-37) L 08/30/18 04:57 ALT 14 Units/L (12-78) 08/30/18 04:57 Alkaline Phosphatase 110 Units/L (46-116) 08/30/18 04:57 Creatine Kinase 43 Units/L (26-192) 08/29/18 04:43 CK-MB (CK-2) < 1.0 ng/mL (0-4.0) 08/29/18 04:43 CK/CKMB % Calc 2.3 % (<4) 08/29/18 04:43 Troponin I < 0.02 ng/mL (0-1.5) 08/29/18 04:43 Total Protein 6.5 g/dL (6.4-8.2) 08/30/18 04:57 Albumin 3.1 g/dL (3.4-5.0) L 08/30/18 04:57 Globulin 3.4 g/dL (2.5-4.5) 08/30/18 04:57 Albumin/Globulin Ratio 0.9 Ratio (1.1-2.1) L 08/30/18 04:57 Triglycerides 75 mg/dL (0-150) 08/29/18 04:43 Cholesterol 161 mg/dL (0-200) 08/29/18 04:43 LDL Cholesterol, Calc 96 mg/dL (0-100) 08/29/18 04:43 HDL Cholesterol 50 mg/dL (40-60) 08/29/18 04:43 Cholesterol/HDL Ratio 3.2 (0.0-5.0) 08/29/18 04:43 Specimen Type Clean catch urine 08/28/18 19:55 Urine Color Pale yellow (YELLOW) 08/28/18 19:55 Urine Appearance Clear (CLEAR) 08/28/18 19:55 Urine pH 6.5 (5.0 - 8.0) 08/28/18 19:55 Ur Specific [place] 1.010 (1.000-1.030) 08/28/18 19:55 Urine Protein Negative (NEGATIVE) 08/28/18 19:55 Urine Glucose (UA) Negative (NEGATIVE) 08/28/18 19:55 Urine Ketones Negative (NEGATIVE) 08/28/18 19:55 Urine Occult Blood 2+ (NEGATIVE) 08/28/18 19:55 Urine Nitrite Negative (NEGATIVE) 08/28/18 19:55 Urine Bilirubin Negative (NEGATIVE) 08/28/18 19:55 Urine Urobilinogen Normal (NORMAL) 08/28/18 19:55 Ur Leukocyte Esterase Negative (NEGATIVE) 08/28/18 19:55 Urine RBC 0-2 /HPF (NONE SEEN) 08/28/18 19:55 Urine WBC None seen /HPF (NONE SEEN) 08/28/18 19:55 Ur Squamous Epith Cells Rare /HPF (NEGATIVE) 08/28/18 19:55 Urine Bacteria Negative /HPF (NEGATIVE) 08/28/18 19:55 Ur Culture Indicated? No/not indicated 08/28/18 19:55 - Plan (1) Chest pain, rule out acute myocardial infarction Status: Acute Plan: TELEMETRY, CONTINUE TO MONITOR. (2) Shortness of breath Status: Acute
[2018-08-30] MEDS ORDERED: GLUCOPHAGE ONE (20:30)
[2018-08-30] MEDS: ZOCOR TAB 20 MG PO SCH (21:45)
[2018-08-30] MEDS: GLUCOPHAGE PO SCH (21:46)
[2018-08-31 05:32] LABS: BASOPHILS % (AUTO) 0.4 % (0.2-1.0); EOSINOPHILS # (AUTO) 0.1 x10^3/uL (0.0-0.2); EOSINOPHILS % (AUTO) 1.7 % (0.9-2.9); HEMATOCRIT 35.3 % (36.0-47.0); HEMOGLOBIN 12.1 g/dL (12.0-16.0); LYMPHOCYTES # (AUTO) 0.8 X10^3/uL (1.3-2.9); LYMPHOCYTES % (AUTO) 11.1 % (21.0-51.0); MEAN CORPUSCULAR HEMOGLOBIN 28.7 pg (27.0-34.0); MEAN CORPUSCULAR HGB CONC 34.3 g/dL (33.0-35.0); MEAN CORPUSCULAR VOLUME 83.8 fL (80.0-100.0); MEAN PLATELET VOLUME 7.8 fL (7.4-11.0); MONOCYTES # (AUTO) 0.7 x10^3/uL (0.3-0.8); MONOCYTES % (AUTO) 10.6 % (0.0-13.0); NEUTROPHILS # (AUTO) 5.3 x10^3/uL (2.2-4.8); NEUTROPHILS % (AUTO) 76.2 % (42.0-75.0); PLATELET COUNT 263 X10^3/uL (150.0-450.0); RED BLOOD COUNT 4.21 X10^6/uL (3.5-5.4)
[2018-08-31] MEDS: TESSALON PERLES PO SCH (05:48)
[2018-08-31 05:54] LABS: ALANINE AMINOTRANSFERASE 13 Units/L (12-78); ALBUMIN 3.1 g/dL (3.4-5.0); ALKALINE PHOSPHATASE 114 Units/L (46-116); ASPARTATE AMINO TRANSFERASE 18 Units/L (15-37); BLOOD UREA NITROGEN 12 mg/dL (7-18); CALCIUM 8.8 mg/dL (8.5-10.1); CARBON DIOXIDE 27.7 mmol/L (21-32); CHLORIDE 98 mmol/L (98-107); COR CA(FOR HYPOALB) 9.5 mg/dL (8.5-10.1); CREATININE 0.77 mg/dL (0.55-1.02); SODIUM 135 mmol/L (136-145); TOTAL PROTEIN 6.5 g/dL (6.4-8.2); eGFR NON BLACK RACES > 60 (>60)
[2018-08-31] MEDS: ASPIRIN PO SCH (09:12)
[2018-08-31] MEDS: PULMICORT NEB TX 0.5 MG NEB SCH (09:12)
[2018-08-31] MEDS: COZAAR PO SCH (09:12)
[2018-08-31] MEDS: HYDROCHLOROTHIAZIDE 12.5 MG CAP PO SCH (09:12)
[2018-08-31] MEDS: SINGULAIR TAB 10 MG PO SCH (09:12)
[2018-08-31] MEDS: PEPCID TAB 20 MG PO SCH (09:13)
[2018-08-31] MEDS: LOVENOX INJ 30 MG SYR SC SCH (09:13)
[2018-08-31] MEDS: PLAVIX PO SCH (09:13)
[2018-08-31] MEDS: AMARYL TAB 4 MG PO SCH (09:13)
[2018-08-31 10:08] VITALS: BP 195/80
[2018-08-31] MEDS: PROVENTIL NEB TX 0.083% 2.5MG/ 3ML NEB SCH (11:57)
[2018-08-31] MEDS ORDERED: XOPENEX 1.25 MG/3 ML NEBULE NEB SCH (12:00)
== END 2018-08-31 12:40 | disposition home or self-care (01) ==
LOC: MED/SURG
PROVIDERS: ADMIT Internal Medicine; ATTEND Internal Medicine
DX: Z66 Do not resuscitate; Z79.01 Long term (current) use of anticoagulants; R94.31 Abnormal electrocardiogram [ECG] [EKG]; R07.89 Other chest pain; E11.65 Type 2 diabetes mellitus with hyperglycemia; I10 Essential (primary) hypertension; J44.9 Chronic obstructive pulmonary disease, unspecified; R06.02 Shortness of breath
CPT/HCPCS: 36415; 71010; 71045; 71260; 80053; 80061; 81001; 82550; 82553; 83735; 84132; 84484; 85025; 85610; 85730; 93005; 94640; 94760; 96372; A4216; A4222; G0378; J1650; J7613; J7626

== ENCOUNTER 2022-08-04 14:55 | Observation (INO) ==
[2022-08-04] MEDS ORDERED: ONDANSETRON ODT PO PRN (16:14)
[2022-08-04] MEDS ORDERED: NS 250 ML IV 250 ML IV ONE (16:14)
[2022-08-04 16:53] LABS: BASOPHILS # (AUTO) 0.1 X10^3/uL (0.0-0.1); BASOPHILS % (AUTO) 0.5 % (0.2-1.0); HEMATOCRIT 42.4 % (36.0-47.0); LYMPHOCYTES # (AUTO) 1.3 X10^3/uL (1.3-2.9); LYMPHOCYTES % (AUTO) 12.8 % (21.0-51.0); MEAN CORPUSCULAR HGB CONC 35.3 g/dL (33.0-35.0); MEAN CORPUSCULAR VOLUME 82.1 fL (80.0-100.0); MEAN PLATELET VOLUME 7.1 fL (7.4-11.0); MONOCYTES # (AUTO) 0.7 x10^3/uL (0.3-0.8); MONOCYTES % (AUTO) 6.7 % (0.0-13.0); RED BLOOD COUNT 5.17 X10^6/uL (3.5-5.4); RED CELL DISTRIBUTION WIDTH 13.3 % (11.6-16.5)
[2022-08-04 17:11] LABS: ALANINE AMINOTRANSFERASE 15 Units/L (12-78); ALBUMIN 3.9 g/dL (3.4-5.0); ALKALINE PHOSPHATASE 161 Units/L (46-116); AMYLASE 53 Units/L (25-115); ASPARTATE AMINO TRANSFERASE 13 Units/L (15-37); BLOOD UREA NITROGEN 24 mg/dL (7-18); CARBON DIOXIDE 28.1 mmol/L (21-32); CHLORIDE 96 mmol/L (98-107); COR NA(FOR HYPERGLY) 135 mmol/L (136-145); CREATININE 0.95 mg/dL (0.55-1.02); LIPASE 70 Units/L (73-393); MAGNESIUM 1.9 mg/dL (2.0-2.9); SODIUM 134 mmol/L (136-145); TOTAL PROTEIN 6.9 g/dL (6.4-8.2); eGFR NON BLACK RACES 59 (>60)
[2022-08-04] MEDS: NS 1,000 ML IV 1,000 ML IV SCH (17:18)
[2022-08-04] MEDS ORDERED: KLOR-CON PO PRN (17:28)
[2022-08-04] MEDS ORDERED: POTASSIUM CHL 60 MEQ/NS 0.45% 500 ML IV PRN (17:28)
[2022-08-04] MEDS ORDERED: POTASSIUM CHL 40 MEQ/NS 0.45% 500 ML IV PRN (17:28)
[2022-08-04] MEDS ORDERED: K-RIDER 10 MEQ/NS 100 ML 10 MEQ/100 ML BAG IV PRN (17:28)
[2022-08-04] MEDS ORDERED: POTASSIUM CHLORIDE LIQ 20 MEQ UDC PO PRN (17:28)
[2022-08-04] MEDS ORDERED: K-DUR TAB 20 MEQ PO PRN (17:28)
[2022-08-04] MEDS ORDERED: MICRO K EXTEN CAP 10 MEQ PO PRN (17:28)
[2022-08-05] MEDS: NS 1,000 ML IV 1,000 ML IV SCH ×4 (04:26→22:21)
[2022-08-05 04:54] LABS: BILIRUBIN,URINE NEGATIVE (NEGATIVE); BLOOD/HEMOGLOBIN,URINE 1+ (NEGATIVE); GLUCOSE, URINE NEGATIVE (NEGATIVE); KETONES,URINE NEGATIVE (NEGATIVE); LEUKOCYTE ESTERASE ,URINE 1+ (NEGATIVE); NITRITES,URINE NEGATIVE (NEGATIVE); PROTEIN,URINE 2+ (NEGATIVE); UROBILINOGEN,URINE NORMAL (NORMAL)
[2022-08-05 05:02] LABS: BASOPHILS % (AUTO) 0.4 % (0.2-1.0); HEMATOCRIT 37.9 % (36.0-47.0); HEMOGLOBIN 13.3 g/dL (12.0-16.0); LYMPHOCYTES # (AUTO) 1.6 X10^3/uL (1.3-2.9); LYMPHOCYTES % (AUTO) 19.3 % (21.0-51.0); MEAN CORPUSCULAR HEMOGLOBIN 28.7 pg (27.0-34.0); MEAN CORPUSCULAR HGB CONC 35.2 g/dL (33.0-35.0); MEAN CORPUSCULAR VOLUME 81.5 fL (80.0-100.0); MEAN PLATELET VOLUME 7.3 fL (7.4-11.0); MONOCYTES # (AUTO) 0.6 x10^3/uL (0.3-0.8); MONOCYTES % (AUTO) 7.4 % (0.0-13.0); NEUTROPHILS # (AUTO) 6.2 x10^3/uL (2.2-4.8); NEUTROPHILS % (AUTO) 72.9 % (42.0-75.0); RED BLOOD COUNT 4.65 X10^6/uL (3.5-5.4); RED CELL DISTRIBUTION WIDTH 13.3 % (11.6-16.5); WHITE BLOOD COUNT 8.5 X10^3/uL (3.6-10.0)
[2022-08-05 05:07] LABS: APPEARANCE,URINE CLEAR (CLEAR); COLOR,URINE YELLOW (YELLOW)
[2022-08-05 05:08] LABS: BACTERIA,URINE TRACE /HPF (NEGATIVE); HYALINE CASTS, URINE FEW /LPF (NEGATIVE); RBC,URINE 0-2 /HPF (0-3); SQUAMOUS EPITHELIAL CELL,UR FEW /HPF (NEGATIVE)
[2022-08-05 05:16] LABS: ALANINE AMINOTRANSFERASE 16 Units/L (12-78); ALBUMIN 3.3 g/dL (3.4-5.0); ALKALINE PHOSPHATASE 144 Units/L (46-116); ASPARTATE AMINO TRANSFERASE 12 Units/L (15-37); BLOOD UREA NITROGEN 23 mg/dL (7-18); CALCIUM 8.3 mg/dL (8.5-10.1); CARBON DIOXIDE 27.3 mmol/L (21-32); CHLORIDE 100 mmol/L (98-107); COR CA(FOR HYPOALB) 8.9 mg/dL (8.5-10.1); COR NA(FOR HYPERGLY) 137 mmol/L (136-145); SODIUM 135 mmol/L (136-145); TOTAL PROTEIN 6.1 g/dL (6.4-8.2); eGFR NON BLACK RACES > 60 (>60)
[2022-08-05] MEDS: MAGNESIUM SULFATE 1 GRAM/100 mL PREMIX 1 G/100 ML BAG IV PRN ×2 (05:29→06:28)
--- NOTE | 2022-08-05 12:57 | DR.H&P ---
H&P - History & Physical for Day of: H&P Date: 08/04/22 - Chief Complaint Chief Complaint: NAUSEA, VOMITING, WEAKNESS, SEVERE LOW BACK PAIN - History of Present Illness History of Present Illness: IS A 87 YEAR OLD PATIENT OF OURS. SHE PRESENTED TO THE OFFICE WITH COMPLAINTS OF NAUSEA, VOMITING, GENERALIZED WEAKNESS, AND SEVERE LOWER BACK PAIN X 2 WEEKS. PATIENT REPORTS BEING UNABLE TO TOLERATE ANY MEDICATIONS OR FOOD DUE TO SEVERE NAUSEA. PATIENT DESCRIBED BACK PAIN CONSTANT, DULL, AND RATED IT A 7/10. SHE REPORTS THAT PAIN IS WORSE WITH ACTIVITY AND AMBULATING. SHE REPORTS NUMBNESS AND WEAKNESS OF LOWER EXTREMITIES AT TIMES. HER PMH INCLUDES DEMENTIA, CAD, RI, HYPERLIPIDEMIA, HTN, CARDIAC STENTS, GERD, ARTHRITIS, CHRONIC LOW BACK PAIN, DM II, HYPOTHYROIDISM, HX OF COLON CANCER, APPENDECTOMY, CHOLECYSTECTOMY, WATCHMANS PROCEDURE, CATARACT SURGERY, AND HERNIA REPAIR. DECISION WAS MADE TO ADMIT PATIENT OBSERVATION STATUS FOR FURTHER EVALUATION AND TREATMENT. ON ARRIVAL TO THE HOSPITAL, VITALS WERE: 98.0-75-18-97%-168/74. LABS WERE OBTAINED. WBC 10.0, RBC 5.17, HGB 15.0, HCT 42.4, PLT COUNT 398, SODIUM 134, POTASSIUM 4.0, CHLORIDE 96, BUN 24, CREATININE 0.95, GLUCOSE 162, CALCIUM 9.0, MAGNESIUM 1.9, AST 13, ALT 15, ALK PHOS 161, TOTAL PROTEIN 6.9, ALBUMIN 3.9, AMYLASE 53, LIPASE 70. URINALYSIS OBTAINED AND REVEALED: WBC 0-2, RBC 0-2, LEUKOCYTES 1+, BACTERIA TRACE. A URINE CULTURE WAS SET UP. WE WILL OBTAIN A LUMBAR SPINE MRI WITHOUT CONTRAST DUE TO SEVERE BACK PAIN. SHE WAS STARTED ON NORMAL SALINE AT 75 ML/HR, THE POTASSIUM AND MAGNESIUM PROTOCOLS, ZOFRAN 4MG PO Q4H PRN NAUSEA, LOVENOX 40MG SC DAILY, OTBS ACHS. WE WILL RESUME HER HOME MEDICATIONS OF METFORMIN, LEVOTHYROXINE, CLOPIDOGREL, ATORVASTATIN ASPIRIN, AMLODIPINE, AMIODARONE. OTHERWISE, WE WILL FOLLOW-UP WITH AM LABS AND CONTINUE TO MONITOR. TIME SPENT ON CLINICAL ASSESSMENT, REVIWING LABS AND IMAGING, DECISION MAKING, AND DOCUMENTATION GREATER THAN 75 MINUTES. - Past Medical History Past Medical History: RI, Coronary Artery Disease, Hypertension, Dyslipidemia, Diabetes, COPD, Asthma Additional Medical History: CATARACTS, GLAUCOMA, RETINA SURGERY, SKIN CANCER - Past Surgical History Surgical History: Angioplasty/Stents, Appendectomy, Cholecystectomy, Other Additional Surgical History: HERNAI REPAIR, SKIN CANCER REMOVED, BENIGN TUMOR REMOVED FROM LEGS AND ARMS, VEIN STRIPPED IN LEGS, HEART CATH WITH STENTS - Family History Family Medical History: Cancer, RI, Hypertension - Social History Does patient currently use any type of tobacco product: No Have you used tobacco products in the last 12 months: No Type of Tobacco Use: None Does any household member use tobacco: No Alcohol Use: None Drug Use: None - Medications Home Medications: atorvastatin [From Lipitor] Allergy (Verified 08/04/22 20:23) codeine Allergy (Verified 08/04/22 20:23) Penicillins Allergy (Verified 08/04/22 20:23) ANY COUGH SYRUP Allergy (Uncoded 08/04/22 20:23) CONTINUE taking the following medications amiodarone 200 mg tablet 1 tab PO QDAY 08/04/22 [History] amlodipine 10 mg tablet 1 tab PO QDAY 08/04/22 [History] aspirin 81 mg tablet 81 mg PO QDAY 08/04/22 [History] atorvastatin 40 mg tablet 1 tab PO HS 08/04/22 [History] clopidogrel 75 mg tablet 1 tab PO QDAY 08/04/22 [History] levothyroxine 50 mcg tablet 1 tab PO QDAY 08/04/22 [History] losartan 100 mg-hydrochlorothiazide 12.5 mg tablet 1 tab PO QDAY 08/04/22 [History] metformin 500 mg tablet 1 tab PO QPM 08/04/22 [History] - Review of Systems Constitutional: Weakness Eyes: No Symptoms Reported ENT: No Symptoms Reported Respiratory: No Symptoms Reported Cardiovascular: No Symptoms Reported Gastrointestinal: See HPI, Nausea, Vomiting. denies: Constipation Genitourinary: No Symptoms Reported Musculoskeletal: Back Pain Skin: No Symptoms Reported Neurological: Weakness - Physical Exam Vital Signs: Temperature 97.8 F Pulse Rate 58 Respiratory Rate 15 Blood Pressure [Right Arm] 136/78 Blood Pressure [Left Arm] 130/59 Blood Pressure 136/63 O2 Sat by Pulse Oximetry 97 Oriented: Normal Eyes: Normal Ear: Normal Nose: Normal Throat: Normal Respiratory: Diminished Throughout Cardiovascular: Normal : Normal Auscultation: Bowel Sounds: Normal Palpation: Normal Tenderness: Normal Skin: Decreased [place] Musculoskeletal: Back:Lumbar, Tender Psychiatric: Normal Mood Description: Calm Affect: Normal Speech Pattern: Clear - Assessment/Plan (1) Dehydration Status: Acute Plan: ADMIT, NORMAL SALINE AT 75 ML/HR, THE POTASSIUM AND MAGNESIUM PROTOCOLS, ZOFRAN 4MG PO Q4H PRN NAUSEA, LOVENOX 40MG SC DAILY, OTBS ACHS. WE WILL RESUME HER HOME MEDICATIONS OF METFORMIN, LEVOTHYROXINE, CLOPIDOGREL, ATORVASTATIN ASPIRIN, AMLODIPINE, AMIODARONE. (2) Hyponatremia Status: Acute (3) Hypomagnesemia Status: Acute (4) Generalized weakness Status: Acute (5) Nausea & vomiting Qualifiers: Vomiting type: unspecified Qualified Code(s): R11.2 - Nausea with vomiting, unspecified Status: Acute (6) Lumbar back pain with radiculopathy affecting lower extremity Status: Acute Plan: OBTAIN LUMBAR SPINE MRI WITHOUT CONTRAST (7) Hypertension Qualifiers: Hypertension type: primary hypertension Qualified Code(s): I10 - Essential (primary) hypertension Status: Chronic (8) Dementia Qualifiers: Dementia type: vascular dementia Dementia severity: unspecified severity Dementia behavioral or psychological symptom: unspecified whether behavioral, psychotic, or mood disturbance or anxiety Qualified Code(s): F01.50 - Vascular dementia, unspecified severity, without behavioral disturbance, psychotic disturbance, mood disturbance, and anxiety Status: Chronic (9) Diabetes Qualifiers: Diabetes mellitus type: type 2 Diabetes mellitus meterman insulin use: with meterman use Diabetes mellitus complication status: without complication Qualified Code(s): E11.9 - Type 2 diabetes mellitus without complications; Z79.4 - USP (current) use of insulin; Z79.4 - USP (current) use of insulin; Z79.4 - USP (current) use of insulin; Z79.4 - intermodal dispatcher (current) use of insulin Status: Chronic (10) Coronary artery disease Qualifiers: Coronary Disease-Associated Artery/Lesion type: [place] artery [place] vs. transplanted heart: [place] heart Associated angina: angina presence unspecified Qualified Code(s): I25.10 - Atherosclerotic heart disease of [place] coronary artery without angina pectoris Status: Chronic (11) Hyperlipidemia Qualifiers: Hyperlipidemia type: mixed hyperlipidemia Qualified Code(s): E78.2 - Mixed hyperlipidemia Status: Chronic - Allergies Allergies/Adverse Reactions: Allergies Allergy/AdvReac Type Severity Reaction Status Date / Time atorvastatin [From Lipitor] Allergy Verified 08/04/22 20:23 codeine Allergy Verified 08/04/22 20:23 Penicillins Allergy Verified 08/04/22 20:23 ANY COUGH SYRUP Allergy Uncoded 08/04/22 20:23
[2022-08-05] MEDS ORDERED: DIPRIVAN VIAL 20 ML ONE (13:24)
--- NOTE | 2022-08-05 13:48 | DR.CONSULT ---
Consult - Consultation for Day of: Date: 08/05/22 - Chief Complaint Chief Complaint: Pt. referred for n/v. IS A 87 YEAR OLD PATIENT WITH COMPLAINTS OF NAUSEA, VOMITING, GENERALIZED WEAKNESS, AND SEVERE LOWER BACK PAIN X 2 WEEKS. PATIENT REPORTS BEING UNABLE TO TOLERATE ANY MEDICATIONS OR FOOD DUE TO SEVERE NAUSEA. 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 She has h/o GERD - Past Medical History Past Medical History: [place], Coronary Artery Disease, Hypertension, Dyslipidemia, Diabetes, COPD, Asthma Additional Medical History: CATARACTS, GLAUCOMA, RETINA SURGERY, SKIN CANCER - Past Surgical History Surgical History: Angioplasty/Stents, Appendectomy, Cholecystectomy, Other Additional Surgical History: HERNAI REPAIR, SKIN CANCER REMOVED, BENIGN TUMOR REMOVED FROM LEGS AND ARMS, VEIN STRIPPED IN LEGS, HEART CATH WITH STENTS - Family History Family Medical History: Cancer, NM, Hypertension - Social History Does patient currently use any type of tobacco product: No Have you used tobacco products in the last 12 months: No Type of Tobacco Use: None Does any household member use tobacco: No Alcohol Use: None Drug Use: None - Medications Home Medications: atorvastatin [From Lipitor] Allergy (Verified 08/04/22 20:23) codeine Allergy (Verified 08/04/22 20:23) Penicillins Allergy (Verified 08/04/22 20:23) ANY COUGH SYRUP Allergy (Uncoded 08/04/22 20:23) CONTINUE taking the following medications amiodarone 200 mg tablet 1 tab PO QDAY 08/04/22 [History] amlodipine 10 mg tablet 1 tab PO QDAY 08/04/22 [History] aspirin 81 mg tablet 81 mg PO QDAY 08/04/22 [History] atorvastatin 40 mg tablet 1 tab PO HS 08/04/22 [History] clopidogrel 75 mg tablet 1 tab PO QDAY 08/04/22 [History] levothyroxine 50 mcg tablet 1 tab PO QDAY 08/04/22 [History] losartan 100 mg-hydrochlorothiazide 12.5 mg tablet 1 tab PO QDAY 08/04/22 [History] metformin 500 mg tablet 1 tab PO QPM 08/04/22 [History] - Review of Systems Constitutional: Weakness Eyes: denies: No Symptoms Reported, See HPI, Pain, Vision Change, Conjunctivae Inflammation, Eyelid Inflammation, Redness, Other ENT: denies: No Symptoms Reported, See HPI, Ear Pain, Ear Discharge, Nose Pain, Nose Discharge, Nose Congestion, Mouth Pain, Mouth Swelling, Throat Pain, Throat Swelling, Other Respiratory: denies: No Symptoms Reported, See HPI, Cough, Dry, Shortness of Breath, Hemoptysis, SOB with Excertion, Pleuritic Pain, Sputum, Wheezing, Other Cardiovascular: denies: No Symptoms Reported, Chest Pain, See HPI, Palpitations, Orthopnea, Paroxysmal Noc. Dyspnea, Edema, Light Headedness, Other Gastrointestinal: Nausea, Vomiting, Abdominal Pain Genitourinary: denies: No Symptoms Reported, See HPI, Dysuria, Frequency, Incontinence, Hematuria, Retention, Other Musculoskeletal: denies: No Symptoms Reported, See HPI, Shoulder Pain, Arm Pain, Back Pain, Hand Pain, Leg Pain, Foot Pain, Neck Pain, Other Skin: denies: No Symptoms Reported, See HPI, Rash, Lesions, Jaundice, Bruising, Wound, Ecchymosis, Other Neurological: denies: No Symptoms Reported, See HPI, Weakness, Numbness, Incoordination, Change in Speech, Confusion, Seizures, Other - Physical Exam Vital Signs: Temperature 97.8 F Pulse Rate 58 Respiratory Rate 15 Blood Pressure [Right Arm] 136/78 Blood Pressure [Left Arm] 130/59 Blood Pressure 136/63 O2 Sat by Pulse Oximetry 97 Oriented: Normal. negative: Time, Person, Place, Not Oriented, Unable to test, Other Eyes: negative: Normal, Blurred Vision, Diplopia, Discharge, Pain, Redness, Photophobia, Other Ear: negative: Normal, Right, Left, Swelling, Ecchymosis, Hemotypanum, Abrasion, Laceration Nose: negative: Normal, Injected, Discharge, Blood, Other Respiratory: negative: Clear Throughout, Diminished Throughout, Rhonchi Throughout, Rales Throughout, Wheezes Throughout, RUL Clear, RML Clear, RLL Clear, LIZ Clear, LML Clear, LLL Clear, RUL Diminished, RML Diminished, RLL Diminished, LIZ Diminished, LML Diminished, LLL Diminished, RUL Absent, RML Absent, RLL Absent, LIZ Absent, LML Absent, LLL Absent, RUL Rhonchi, RML Rhonchi, RLL Rhonchi, LIZ Rhonchi, LML Rhonchi, LLL Rhonchi, RUL Insp. Wheeze, RML Insp. Wheeze, RLL Insp. Wheeze, LIZ Insp.Wheeze, LML Insp.Wheeze, LLL Insp.Wheeze, RUL Exp. Wheeze, RML Exp. Wheeze, RLL Exp. Wheeze, LIZ Exp. Wheeze, LML Exp. Wheeze, LLL Exp. Wheeze, RUL Rales, RML Rales, RLL Rales, LIZ Rales, LML Rales, LLL Rales, RUL Rub, RML Rub, RLL Rub, LIZ Rub, LML Rub, LLL Rub, RUL Squeak, RML Squeak, RLL Squeak, LIZ Squeak, LML Squeak, LLL Squeak Cardiovascular: negative: Normal, Tachycardia, Bradycardia, Irregular, S3, S4, Systolic, Diastolic, Murmur, Edema, Other Auscultation: Bowel Sounds: Normal Palpation: Normal Tenderness: Epigastric Musculoskeletal: negative: Normal, Right, Left, Shoulder, Clavicle, Arm, Elbow, Forearm, Wrist, Hand, Hip, Thigh, Knee, Leg, Ankle, Foot, Back:Thoracic, Back:Lumbar, Back:Midline, Back:Paraspinous, Pelvis, Swelling, Tender, Deformity, Pulse Deficit, Motor Deficit, Sensory Deficit, Instability, Crepitance Psychiatric: negative: Normal, Anxiety, Depression, Agitation, Other - Plan Plan: Assessment: 1. Nausea Vomitting, GERD, poor appetite r/o /DU/CA stomach. 2. H/o of Adenocarcinoma of Ascending colon, s/p resection in 2020. PLan: EGD today, IV Protonix, monitor hemoglobin. - Allergies Allergies/Adverse Reactions: Allergies Allergy/AdvReac Type Severity Reaction Status Date / Time atorvastatin [From Lipitor] Allergy Verified 08/04/22 20:23 codeine Allergy Verified 08/04/22 20:23 Penicillins Allergy Verified 08/04/22 20:23 ANY COUGH SYRUP Allergy Uncoded 08/04/22 20:23
[2022-08-05] MEDS: LOVENOX INJ 40 MG SYR SC SCH (14:55)
[2022-08-05] MEDS: ZOFRAN INJ 4 MG VIAL IVP PRN (14:55)
[2022-08-05] MEDS: DIFLUCAN PO SCH (16:44)
[2022-08-05] MEDS: PLAVIX PO SCH (16:44)
[2022-08-05] MEDS: NORVASC TAB 10 MG PO SCH (16:45)
[2022-08-05] MEDS: CORDARONE TAB 200 MG PO SCH (16:45)
[2022-08-05] MEDS: SYNTHROID 50 mcg TAB PO SCH (16:45)
[2022-08-05] MEDS ORDERED: NORCO 5/325 MG TAB PO PRN (17:39)
[2022-08-05] MEDS ORDERED: GLUCOPHAGE ONE (20:19)
[2022-08-05] MEDS: GLUCOPHAGE PO SCH ×2 (20:26→20:28)
[2022-08-05] MEDS: LIPITOR TAB 40 MG PO SCH (20:28)
[2022-08-05 21:04] VITALS: BMI 19.3
--- NOTE | 2022-08-06 00:22 | MRI ---
HISTORYback painSTUDYMRI L SPINE W/O CONTRASTCOMPARISONTECHNIQUEMultiplanar multi-sequence MRI of the lumbar spine was obtained. Sagittal T1, sagittal T2, and stir weighted images, axial T1, and axial T2 images were obtained.FINDINGSThere is subtle retrolisthesis of L1 on L2 and anterolisthesis of L4 on L5. There is no worrisome bone marrow lesion. The conus terminates normally posterior to the T12-L1 disc space.T12 -- L1: No significant disc bulging. Facets are normal.L1 -- L2: Mild disc bulging. Mild ligamentum flavum hypertrophy.L2 -- L3: Moderate broad-based disc bulging. Moderate facet and ligamentum flavum hypertrophy. AP dimension of the spinal canal is 1.2 cm which is normal. There is mild right L2 neural foraminal narrowing.L3 -- L4: Moderate broad-based disc bulging. Mild left and moderate right facet and ligamentum flavum hypertrophy. There is mild spinal stenosis. There is mild right L3 neural foraminal narrowing.L4 -- L5: There is broad-based disc bulging. There is moderate to severe facet and ligamentum flavum hypertrophy. The AP dimension of the spinal canal is 1 cm. There is mild left L4 neural foraminal narrowing.L5 -- S1: Mild broad-based disc bulging. Mild facet and ligamentum flavum hypertrophy. Mild left L5 neural foraminal narrowing.IMPRESSION1. Spondylolisthesis and multilevel disc and facet degeneration as described above. 2. Mild spinal stenosis at L3-L4. 3. Neural foraminal narrowing as above.Electronically signed by: Casey Concepcion (Aug 06, 2022 00:21:13)
[2022-08-06 05:35] LABS: BASOPHILS % (AUTO) 0.4 % (0.2-1.0); HEMATOCRIT 34.7 % (36.0-47.0); LYMPHOCYTES # (AUTO) 1.3 X10^3/uL (1.3-2.9); LYMPHOCYTES % (AUTO) 13.2 % (21.0-51.0); MEAN CORPUSCULAR HEMOGLOBIN 28.6 pg (27.0-34.0); MEAN CORPUSCULAR HGB CONC 34.6 g/dL (33.0-35.0); MEAN CORPUSCULAR VOLUME 82.5 fL (80.0-100.0); MEAN PLATELET VOLUME 7.3 fL (7.4-11.0); MONOCYTES # (AUTO) 0.7 x10^3/uL (0.3-0.8); MONOCYTES % (AUTO) 6.7 % (0.0-13.0); NEUTROPHILS # (AUTO) 7.8 x10^3/uL (2.2-4.8); NEUTROPHILS % (AUTO) 79.7 % (42.0-75.0); RED CELL DISTRIBUTION WIDTH 12.9 % (11.6-16.5); WHITE BLOOD COUNT 9.8 X10^3/uL (3.6-10.0)
[2022-08-06 05:50] LABS: ALANINE AMINOTRANSFERASE 14 Units/L (12-78); ALBUMIN 2.9 g/dL (3.4-5.0); ALKALINE PHOSPHATASE 127 Units/L (46-116); ASPARTATE AMINO TRANSFERASE 13 Units/L (15-37); BLOOD UREA NITROGEN 18 mg/dL (7-18); CALCIUM 7.9 mg/dL (8.5-10.1); CARBON DIOXIDE 25.3 mmol/L (21-32); CHLORIDE 104 mmol/L (98-107); COR CA(FOR HYPOALB) 8.8 mg/dL (8.5-10.1); COR NA(FOR HYPERGLY) 139 mmol/L (136-145); CREATININE 0.68 mg/dL (0.55-1.02); SODIUM 137 mmol/L (136-145); TOTAL PROTEIN 5.4 g/dL (6.4-8.2); eGFR NON BLACK RACES > 60 (>60)
[2022-08-06] MEDS ORDERED: MAGIC MOUTHWASH (Orig. Formula) MT PRN (08:48)
[2022-08-06] MEDS ORDERED: PROTONIX INJ 40 MG VIAL IVP SCH (09:00)
[2022-08-06] MEDS: PROTONIX INJ 40 MG VIAL IVP SCH ×2 (09:25→20:27)
[2022-08-06] MEDS: NORVASC TAB 10 MG PO SCH (09:26)
[2022-08-06] MEDS: PLAVIX PO SCH (09:26)
[2022-08-06] MEDS: SYNTHROID 50 mcg TAB PO SCH (09:26)
[2022-08-06] MEDS: DIFLUCAN PO SCH (09:26)
[2022-08-06] MEDS: ASPIRIN EC 81 MG PO SCH (09:26)
[2022-08-06] MEDS: PEPCID 20 MG VIAL 20 MG in NS 50 ML IV 50 ML IV SCH ×2 (09:26→20:26)
[2022-08-06] MEDS: LOVENOX INJ 40 MG SYR SC SCH (09:26)
[2022-08-06] MEDS: CORDARONE TAB 200 MG PO SCH (09:26)
--- NOTE | 2022-08-06 11:18 | PCM.PROG ---
Progress Note - Progress Note for Day of Date of Exam: 08/06/22 - Subjective Subjective: IS CURRENTLY OBSERVATION STATUS FOR TREATMENT OF DEHYDRATION, HYPONATREMIA, HYPOMAGNESEMIA, GENERALIZED WEAKNESS, NAUSEA AND VOMITING, AND SEVERE LOW BACK PAIN. SHE HAD AN EGD BY YESTERDAY. 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 MAIER DILATION OF THE ESOPHAGUS AND BIOPSIES WERE PERFORMED. HER PMH INCLUDES DEMENTIA, CAD, OK, HYPERLIPIDEMIA, HTN, CARDIAC STENTS, GERD, ARTHRITIS, CHRONIC LOW BACK PAIN, DM II, HYPOTHYROIDISM, HX OF COLON CANCER, APPENDECTOMY, CHOLECYSTECTOMY, WATCHMANS PROCEDURE, CATARACT SURGERY, AND HERNIA REPAIR. TODAY, SHE IS ALERT AND ORIENTED, LYING IN BED ON MORNING ROUNDS. SHE CONTINUES TO REPORT GENERALIZED WEAKNESS AND INTERMITTENT LOW BACK PAIN, BUT REPORTS IMPROVEMENT IN NAUSEA SINCE ADMISSION. UPON EXAMINATION, HEART IS REGULAR IN RATE AND RHYTHM. BILATERAL LUNGS ARE NOTED WITH DIMINISHED LUNG SOUNDS THROUGHOUT. ABDOMEN IS ROUND, SOFT, AND NON-TENDER WITH NORMAL BOWEL SOUNDS NOTED IN ALL QUADRANTS. NO UPPER OR LOWER EXTREMITY EDEMA NOTED. HER VITALS THIS MORNING ARE: 97.9-70-13-97%-134/64. LABS WERE OBTAINED. WBC 9.8, RBC 4.20, HGB 12.0, HCT 34.7, PLT COUNT 375, SODIUM 137, POTASSIUM 4.3, CHLORIDE 104, BUN 18, CREATININE 0.68, CALCIUM 7.9, MAGNESIUM 2.0, TOTAL BILI 0.60, AST 13, ALT 14, ALK PHOS 127, TOTAL PROTEIN 5.4, ALBUMIN 2.9. A LUMBAR SPINE MRI WITHOUT CONTRAST WAS OBTAINED YESTERDAY. IT REVEALED: 1. Spondylolisthesis and multilevel disc and facet degeneration as described above. 2. Mild spinal stenosis at L3-L4. SHE IS CURRENTLY RECEIVING NORMAL SALINE AT 75 ML/HR, THE POTASSIUM AND MAGNESIUM PROTOCOLS, ZOFRAN 4MG PO Q4H PRN NAUSEA, LOVENOX 40MG SC DAILY, OTBS ACHS, DIFLUCAN 100MG PO DAILY. WE RESUMED HER HOME MEDICATIONS OF METFORMIN, LEVOTHYROXINE, CLOPIDOGREL, ATORVASTATIN, ASPIRIN, AMLODIPINE, AND AMIODARONE. TODAY, WE WILL ADD PEPCID 20MG IV Q12H AND PROTONIX 40MG IV BID. OTHERWISE, WE WILL FOLLOW-UP WITH AM LABS AND CONTINUE TO MONITOR. TIME SPENT ON CLINICAL ASSESSMENT, REVIWING LABS AND IMAGING, DECISION MAKING, AND DOCUMENTATION GREATER THAN 45 MINUTES. - Past Medical Family Social History Past Med/Fam/Surg Hx: No changes since H&P Allergies: Allergies atorvastatin [From Lipitor] Allergy (Verified 08/04/22 20:23) codeine Allergy (Verified 08/04/22 20:23) Penicillins Allergy (Verified 08/04/22 20:23) ANY COUGH SYRUP Allergy (Uncoded 08/04/22 20:23) - Review of Systems ROS: No change since H&P - Vital Signs and I&O's Vital Signs: Temperature 97.9 F Pulse Rate 66 Respiratory Rate 15 Blood Pressure [Right Arm] 136/78 Blood Pressure [Left Arm] 130/59 Blood Pressure 134/64 O2 Sat by Pulse Oximetry 95 Intake and Output: Intake & Output 08/03/22 08/04/22 08/05/22 08/06/22 11:59 11:59 11:59 11:59 Intake Total 1131 / 1131 2356 / 2356 Output Total 200 / 200 350 / 350 Balance 931 / 931 2005 - Physical Exam Oriented: Normal. negative: Time, Person, Place, Not Oriented, Unable to test, Other Eyes: Normal Ear: Normal Nose: Normal Throat: Red Respiratory: Normal Cardiovascular: Normal : Normal Auscultation: Bowel Sounds: Normal Palpation: Normal Tenderness: Normal Skin: Decreased Turgur Musculoskeletal: Back:Lumbar Psychiatric: Normal Mood Description: Calm Affect: Normal Speech Pattern: Clear, Appropriate - Laboratory and Diagnostics Result Diagrams: 08/06/22 04:45 08/06/22 04:45 Labs: 08/05/22 04:12 Urine,Clean Catch Urine Culture - Final Laboratory WBC 9.8 X10^3/uL (3.6-10.0) 08/06/22 04:45 RBC 4.20 X10^6/uL (3.5-5.4) 08/06/22 04:45 Hgb 12.0 g/dL (12.0-16.0) 08/06/22 04:45 Hct 34.7 % (36.0-47.0) L 08/06/22 04:45 MCV 82.5 fL (80.0-100.0) 08/06/22 04:45 MCH 28.6 pg (27.0-34.0) 08/06/22 04:45 MCHC 34.6 g/dL (33.0-35.0) 08/06/22 04:45 RDW 12.9 % (11.6-16.5) 08/06/22 04:45 Plt Count 375 X10^3/uL (150.0-450.0) 08/06/22 04:45 MPV 7.3 fL (7.4-11.0) L 08/06/22 04:45 Neut % (Auto) 79.7 % (42.0-75.0) H 08/06/22 04:45 Lymph % (Auto) 13.2 % (21.0-51.0) L 08/06/22 04:45 [place] % (Auto) 6.7 % (0.0-13.0) 08/06/22 04:45 Eos % (Auto) 0.0 % (0.9-2.9) L 08/06/22 04:45 Baso % (Auto) 0.4 % (0.2-1.0) 08/06/22 04:45 Neut # (Auto) 7.8 x10^3/uL (2.2-4.8) H 08/06/22 04:45 Lymph # (Auto) 1.3 X10^3/uL (1.3-2.9) 08/06/22 04:45 [place] # (Auto) 0.7 x10^3/uL (0.3-0.8) 08/06/22 04:45 Eos # (Auto) 0.0 x10^3/uL (0.0-0.2) 08/06/22 04:45 Baso # (Auto) 0.0 X10^3/uL (0.0-0.1) 08/06/22 04:45 Absolute Nucleated RBC 0.0 /100WBC 08/06/22 04:45 Sodium 137 mmol/L (136-145) 08/06/22 04:45 Corrected Sodium 139 mmol/L (136-145) 08/06/22 04:45 Potassium 4.3 mmol/L (3.5-5.1) 08/06/22 04:45 Chloride 104 mmol/L (98-107) 08/06/22 04:45 Carbon Dioxide 25.3 mmol/L (21-32) 08/06/22 04:45 BUN 18 mg/dL (7-18) 08/06/22 04:45 Creatinine 0.68 mg/dL (0.55-1.02) 08/06/22 04:45 Est GFR (MDRD) Af Amer > 60 (>60) 08/06/22 04:45 Est GFR (MDRD) Non-Af > 60 (>60) 08/06/22 04:45 Glucose 168 mg/dL (65-99) H 08/06/22 04:45 POC Glucose (mg/dL) 173 mg/dL (65-99) H 08/06/22 05:50 Calcium 7.9 mg/dL (8.5-10.1) L 08/06/22 04:45 Corrected Calcium 8.8 mg/dL (8.5-10.1) 08/06/22 04:45 Magnesium 2.0 mg/dL (2.0-2.9) 08/06/22 04:45 Total Bilirubin 0.60 mg/dL (0.2-1.0) 08/06/22 04:45 AST 13 Units/L (15-37) L 08/06/22 04:45 ALT 14 Units/L (12-78) 08/06/22 04:45 Alkaline Phosphatase 127 Units/L (46-116) H 08/06/22 04:45 Total Protein 5.4 g/dL (6.4-8.2) L 08/06/22 04:45 Albumin 2.9 g/dL (3.4-5.0) L 08/06/22 04:45 Globulin 2.5 g/dL (2.5-4.5) 08/06/22 04:45 Albumin/Globulin Ratio 1.2 Ratio (1.1-2.1) 08/06/22 04:45 Amylase 53 Units/L (25-115) 08/04/22 16:39 Lipase 70 Units/L (73-393) L 08/04/22 16:39 Specimen Type Clean catch urine 08/05/22 04:12 Urine Color Yellow (YELLOW) 08/05/22 04:12 Urine Appearance Clear (CLEAR) 08/05/22 04:12 Urine pH 6.0 (5.0 - 8.0) 08/05/22 04:12 Ur Specific [place] 1.020 (1.000-1.030) 08/05/22 04:12 Urine Protein 2+ (NEGATIVE) 08/05/22 04:12 Urine Glucose (UA) Negative (NEGATIVE) 08/05/22 04:12 Urine Ketones Negative (NEGATIVE) 08/05/22 04:12 Urine Blood 1+ (NEGATIVE) 08/05/22 04:12 Urine Nitrite Negative (NEGATIVE) 08/05/22 04:12 Urine Bilirubin Negative (NEGATIVE) 08/05/22 04:12 Urine Urobilinogen Normal (NORMAL) 08/05/22 04:12 Ur Leukocyte Esterase 1+ (NEGATIVE) 08/05/22 04:12 Urine RBC 0-2 /HPF (0-3) 08/05/22 04:12 Urine WBC 0-2 /HPF (0-5) 08/05/22 04:12 Ur Squamous Epith Cells Few /HPF (NEGATIVE) 08/05/22 04:12 Urine Bacteria Trace /HPF (NEGATIVE) 08/05/22 04:12 Hyaline Casts Few /LPF (NEGATIVE) 08/05/22 04:12 Urine Mucus Moderate /HPF (NEGATIVE) 08/05/22 04:12 Ur Culture Indicated? Yes/culture set up 08/05/22 04:12 - Plan (1) Dehydration Status: Acute Plan: NORMAL SALINE AT 75 ML/HR, THE POTASSIUM AND MAGNESIUM PROTOCOLS, ZOFRAN 4MG PO Q4H PRN NAUSEA, LOVENOX 40MG SC DAILY, OTBS ACHS, DIFLUCAN 100MG PO DAILY, PEPCID 20MG IV BID, PROTONIX 40MG IV BID. WE RESUMED HER HOME MEDICATIONS OF METFORMIN, LEVOTHYROXINE, CLOPIDOGREL, ATORVASTATIN, ASPIRIN, AMLODIPINE, AND AMIODARONE. (2) Gastritis Status: Acute Qualifiers: Chronicity: unspecified Gastritis bleeding: presence of bleeding unspecified (3) Cate esophagitis Status: Acute (4) Hyponatremia Status: Acute (5) Hypomagnesemia Status: Acute (6) Generalized weakness Status: Acute (7) Nausea & vomiting Status: Acute Qualifiers: Vomiting type: unspecified Qualified Code(s): R11.2 - Nausea with vomiting, unspecified (8) Lumbar back pain with radiculopathy affecting lower extremity Status: Acute Plan: OBTAIN LUMBAR SPINE MRI WITHOUT CONTRAST (9) Hypertension Status: Chronic Qualifiers: Hypertension type: primary hypertension Qualified Code(s): I10 - Essential (primary) hypertension (10) Dementia Status: Chronic Qualifiers: Dementia type: vascular dementia Dementia severity: unspecified severity Dementia behavioral or psychological symptom: unspecified whether behavioral, psychotic, or mood disturbance or anxiety Qualified Code(s): F01.50 - Vascular dementia, unspecified severity, without behavioral disturbance, psychotic disturbance, mood disturbance, and anxiety (11) Diabetes Status: Chronic Qualifiers: Diabetes mellitus type: type 2 Diabetes mellitus director long term care insulin use: with senior care use Diabetes mellitus complication status: without complication Qualified Code(s): E11.9 - Type 2 diabetes mellitus without complications; Z79.4 - senior living (current) use of insulin; Z79.4 - senior living (current) use of insulin; Z79.4 - senior living (current) use of insulin; Z79.4 - senior living (current) use of insulin (12) Coronary artery disease Status: Chronic Qualifiers: Coronary Disease-Associated Artery/Lesion type: [place] artery [place] vs. transplanted heart: [place] heart Associated angina: angina presence unspecified Qualified Code(s): I25.10 - Atherosclerotic heart disease of [place] coronary artery without angina pectoris (13) Hyperlipidemia Status: Chronic Qualifiers: Hyperlipidemia type: mixed hyperlipidemia Qualified Code(s): E78.2 - Mixed hyperlipidemia
[2022-08-06] MEDS: NovoLIN R (or HumuLIN R) SUBCUT PRN ×2 (12:15→20:46)
[2022-08-06] MEDS: NS 1,000 ML IV 1,000 ML IV SCH (12:16)
[2022-08-06 15:28] LABS: BILIRUBIN,URINE NEGATIVE (NEGATIVE); BLOOD/HEMOGLOBIN,URINE 2+ (NEGATIVE); GLUCOSE, URINE 3+ (NEGATIVE); KETONES,URINE NEGATIVE (NEGATIVE); LEUKOCYTE ESTERASE ,URINE 3+ (NEGATIVE); NITRITES,URINE NEGATIVE (NEGATIVE); PROTEIN,URINE 2+ (NEGATIVE); UROBILINOGEN,URINE NORMAL (NORMAL)
[2022-08-06 15:36] LABS: APPEARANCE,URINE SLIGHTLY HAZY (CLEAR); COLOR,URINE YELLOW (YELLOW)
[2022-08-06 15:37] LABS: BACTERIA,URINE NEGATIVE /HPF (NEGATIVE); SQUAMOUS EPITHELIAL CELL,UR RARE /HPF (NEGATIVE)
[2022-08-06] MEDS ORDERED: GLUCOPHAGE ONE (20:09)
[2022-08-06] MEDS: GLUCOPHAGE PO SCH (20:25)
[2022-08-06] MEDS: LIPITOR TAB 40 MG PO SCH (20:26)
[2022-08-07] MEDS: NS 1,000 ML IV 1,000 ML IV SCH ×4 (01:01→18:50)
[2022-08-07] MEDS: ZOFRAN INJ 4 MG VIAL IVP PRN (04:36)
[2022-08-07 04:51] LABS: BASOPHILS # (AUTO) 0.1 X10^3/uL (0.0-0.1); BASOPHILS % (AUTO) 0.7 % (0.2-1.0); HEMATOCRIT 37.8 % (36.0-47.0); HEMOGLOBIN 13.2 g/dL (12.0-16.0); LYMPHOCYTES % (AUTO) 19.5 % (21.0-51.0); MEAN CORPUSCULAR HEMOGLOBIN 28.8 pg (27.0-34.0); MEAN CORPUSCULAR HGB CONC 35.1 g/dL (33.0-35.0); MEAN PLATELET VOLUME 7.2 fL (7.4-11.0); MONOCYTES # (AUTO) 0.8 x10^3/uL (0.3-0.8); MONOCYTES % (AUTO) 7.1 % (0.0-13.0); NEUTROPHILS # (AUTO) 7.7 x10^3/uL (2.2-4.8); NEUTROPHILS % (AUTO) 72.7 % (42.0-75.0); RED CELL DISTRIBUTION WIDTH 13.4 % (11.6-16.5); WHITE BLOOD COUNT 10.5 X10^3/uL (3.6-10.0)
[2022-08-07 05:02] LABS: ALANINE AMINOTRANSFERASE 13 Units/L (12-78); ALBUMIN 3.5 g/dL (3.4-5.0); ALKALINE PHOSPHATASE 148 Units/L (46-116); ASPARTATE AMINO TRANSFERASE 14 Units/L (15-37); BLOOD UREA NITROGEN 12 mg/dL (7-18); CALCIUM 8.5 mg/dL (8.5-10.1); CHLORIDE 101 mmol/L (98-107); COR NA(FOR HYPERGLY) 138 mmol/L (136-145); CREATININE 0.64 mg/dL (0.55-1.02); SODIUM 137 mmol/L (136-145); TOTAL PROTEIN 6.2 g/dL (6.4-8.2); eGFR NON BLACK RACES > 60 (>60)
[2022-08-07] MEDS: ASPIRIN EC 81 MG PO SCH (08:31)
[2022-08-07] MEDS: PEPCID 20 MG VIAL 20 MG in NS 50 ML IV 50 ML IV SCH ×2 (08:31→20:26)
[2022-08-07] MEDS: PROTONIX INJ 40 MG VIAL IVP SCH ×2 (08:31→20:26)
[2022-08-07] MEDS: CORDARONE TAB 200 MG PO SCH (08:31)
[2022-08-07] MEDS: LOVENOX INJ 40 MG SYR SC SCH (08:31)
[2022-08-07] MEDS: SYNTHROID 50 mcg TAB PO SCH (08:31)
[2022-08-07] MEDS: PLAVIX PO SCH (08:31)
[2022-08-07] MEDS: NORVASC TAB 10 MG PO SCH (08:31)
[2022-08-07] MEDS: DIFLUCAN PO SCH (08:31)
--- NOTE | 2022-08-07 11:50 | PCM.PROG ---
Progress Note Progress Note for Day of Date of Exam: 08/07/22 Subjective Subjective: Patient seen at bedside, no acute events overnight. She is feeling better today. She was able to tolerate her diet. She had some nausea partner cco but is feeling ok now. Denies vomiting or diarrhea. Denies abdominal pain. She underwent EGD due to intractable N/V, found to have eugenia eso phagitis. She is currently on full liquids. Lumbar MRI showed multi-level DDD. Labs: WBC 10.5 BUN/Cr: 12/0.64 Plan: advance diet as tolerated, zofran prn. Continue Diflucan. Follow pending urine Cx. Continue gentle hydration. Ambulate as tolerated, PT/OT prn. Monitor AM labs, replace electrolytes as needed. Past Medical Family Social History Past Med/Fam/Surg Hx: No changes since H&P Allergies: Allergies atorvastatin [From Lipitor] Allergy (Verified 08/04/22 20:23) codeine Allergy (Verified 08/04/22 20:23) Penicillins Allergy (Verified 08/04/22 20:23) ANY COUGH SYRUP Allergy (Uncoded 08/04/22 20:23) Review of Systems ROS: No change since H&P Vital Signs and I&O's Vital Signs: Temperature 98.2 F Pulse Rate 62 Respiratory Rate 11 Blood Pressure [Right Arm] 136/78 Blood Pressure [Left Arm] 130/59 Blood Pressure 147/65 O2 Sat by Pulse Oximetry 96 Intake and Output: Intake & Output 08/04/22 08/05/22 08/06/22 08/07/22 23:59 23:59 23:59 23:59 Intake Total 536 / 536 2356 / 2356 2172 / 2172 300 / 300 Output Total 200 / 200 850 / 850 400 / 400 Balance 536 / 536 2156 / 2156 1322 / 1322 -100 / -100 Physical Exam Oriented: Normal Eyes: Normal Ear: Normal Nose: Normal Throat: Red Respiratory: Normal Cardiovascular: Normal Auscultation: Bowel Sounds: Normal Tenderness: Normal Skin: Decreased Turgur Musculoskeletal: Back:Lumbar Psychiatric: Normal Mood Description: Calm Affect: Normal Speech Pattern: Clear and Appropriate Laboratory and Diagnostics Result Diagrams: 08/07/22 04:21 08/07/22 04:21 Labs: 08/05/22 04:12 Urine,Clean Catch Urine Culture - Final Laboratory WBC 10.5 X10^3/uL (3.6-10.0) H 08/07/22 04:21 RBC 4.60 X10^6/uL (3.5-5.4) 08/07/22 04:21 Hgb 13.2 g/dL (12.0-16.0) 08/07/22 04:21 Hct 37.8 % (36.0-47.0) 08/07/22 04:21 MCV 82.0 fL (80.0-100.0) 08/07/22 04:21 MCH 28.8 pg (27.0-34.0) 08/07/22 04:21 MCHC 35.1 g/dL (33.0-35.0) H 08/07/22 04:21 RDW 13.4 % (11.6-16.5) 08/07/22 04:21 Plt Count 392 X10^3/uL (150.0-450.0) 08/07/22 04:21 MPV 7.2 fL (7.4-11.0) L 08/07/22 04:21 Neut % (Auto) 72.7 % (42.0-75.0) 08/07/22 04:21 Lymph % (Auto) 19.5 % (21.0-51.0) L 08/07/22 04:21 [place] % (Auto) 7.1 % (0.0-13.0) 08/07/22 04:21 Eos % (Auto) 0.0 % (0.9-2.9) L 08/07/22 04:21 Baso % (Auto) 0.7 % (0.2-1.0) 08/07/22 04:21 Neut # (Auto) 7.7 x10^3/uL (2.2-4.8) H 08/07/22 04:21 Lymph # (Auto) 2.0 X10^3/uL (1.3-2.9) 08/07/22 04:21 [place] # (Auto) 0.8 x10^3/uL (0.3-0.8) 08/07/22 04:21 Eos # (Auto) 0.0 x10^3/uL (0.0-0.2) 08/07/22 04:21 Baso # (Auto) 0.1 X10^3/uL (0.0-0.1) 08/07/22 04:21 Absolute Nucleated RBC 0.0 /100WBC 08/07/22 04:21 Sodium 137 mmol/L (136-145) 08/07/22 04:21 Corrected Sodium 138 mmol/L (136-145) 08/07/22 04:21 Potassium 3.8 mmol/L (3.5-5.1) 08/07/22 04:21 Chloride 101 mmol/L (98-107) 08/07/22 04:21 Carbon Dioxide 26.0 mmol/L (21-32) 08/07/22 04:21 BUN 12 mg/dL (7-18) 08/07/22 04:21 Creatinine 0.64 mg/dL (0.55-1.02) 08/07/22 04:21 Est GFR (MDRD) Af Amer > 60 (>60) 08/07/22 04:21 Est GFR (MDRD) Non-Af > 60 (>60) 08/07/22 04:21 Glucose 162 mg/dL (65-99) H 08/07/22 04:21 POC Glucose (mg/dL) 161 mg/dL (65-99) H 08/07/22 05:45 Calcium 8.5 mg/dL (8.5-10.1) 08/07/22 04:21 Corrected Calcium TNP 08/07/22 04:21 Magnesium 2.0 mg/dL (2.0-2.9) 08/06/22 04:45 Total Bilirubin 0.60 mg/dL (0.2-1.0) 08/07/22 04:21 AST 14 Units/L (15-37) L 08/07/22 04:21 ALT 13 Units/L (12-78) 08/07/22 04:21 Alkaline Phosphatase 148 Units/L (46-116) H 08/07/22 04:21 Total Protein 6.2 g/dL (6.4-8.2) L 08/07/22 04:21 Albumin 3.5 g/dL (3.4-5.0) 08/07/22 04:21 Globulin 2.7 g/dL (2.5-4.5) 08/07/22 04:21 Albumin/Globulin Ratio 1.3 Ratio (1.1-2.1) 08/07/22 04:21 Amylase 53 Units/L (25-115) 08/04/22 16:39 Lipase 70 Units/L (73-393) L 08/04/22 16:39 Specimen Type Clean catch urine 08/06/22 15:10 Urine Color Yellow (YELLOW) 08/06/22 15:10 Urine Appearance Slightly hazy (CLEAR) 08/06/22 15:10 Urine pH 6.0 (5.0 - 8.0) 08/06/22 15:10 Ur Specific [place] 1.025 (1.000-1.030) 08/06/22 15:10 Urine Protein 2+ (NEGATIVE) 08/06/22 15:10 Urine Glucose (UA) 3+ (NEGATIVE) 08/06/22 15:10 Urine Ketones Negative (NEGATIVE) 08/06/22 15:10 Urine Blood 2+ (NEGATIVE) 08/06/22 15:10 Urine Nitrite Negative (NEGATIVE) 08/06/22 15:10 Urine Bilirubin Negative (NEGATIVE) 08/06/22 15:10 Urine Urobilinogen Normal (NORMAL) 08/06/22 15:10 Ur Leukocyte Esterase 3+ (NEGATIVE) 08/06/22 15:10 Urine RBC 3-5 /HPF (0-3) A 08/06/22 15:10 Urine WBC 3-5 /HPF (0-5) 08/06/22 15:10 Ur Squamous Epith Cells Rare /HPF (NEGATIVE) 08/06/22 15:10 Amorphous Sediment 1+ /HPF (NEGATIVE) 08/06/22 15:10 Urine Bacteria Negative /HPF (NEGATIVE) 08/06/22 15:10 Hyaline Casts Few /LPF (NEGATIVE) 08/05/22 04:12 Urine Mucus Moderate /HPF (NEGATIVE) 08/05/22 04:12 Ur Culture Indicated? No/not indicated 08/06/22 15:10 Plan (1) Dehydration: Status: Acute (2) Gastritis: Status: Acute Qualifiers: Chronicity: unspecified Gastritis bleeding: presence of bleeding unspecified (3) [place] esophagitis: Status: Acute (4) Hyponatremia: Status: Acute (5) Hypomagnesemia: Status: Acute (6) Generalized weakness: Status: Acute (7) Nausea & vomiting: Status: Acute Qualifiers: Vomiting type: unspecified Qualified Code(s): R11.2 - Nausea with vomiting, unspecified (8) Lumbar back pain with radiculopathy affecting lower extremity: Status: Acute (9) Hypertension: Status: Chronic Qualifiers: Hypertension type: primary hypertension Qualified Code(s): I10 - Essential (primary) hypertension (10) Dementia: Status: Chronic Qualifiers: Dementia behavioral or psychological symptom: unspecified whether behavioral, psychotic, or mood disturbance or anxiety Dementia severity: unspecified severity Dementia type: vascular dementia Qualified Code(s): F01.50 - Vascular dementia, unspecified severity, without behavioral disturbance, psychotic disturbance, mood disturbance, and anxiety (11) Diabetes: Status: Chronic Qualifiers: Diabetes mellitus complication status: without complication Diabetes mellitus assistant terminal manager insulin use: with [facility] use Diabetes mellitus type: type 2 Qualified Code(s): E11.9 - Type 2 diabetes mellitus without complications; Z79.4 - care home (current) use of insulin; Z79.4 - manager intermediate (current) use of insulin; Z79.4 - care home (current) use of insulin; Z79.4 - care home (current) use of insulin (12) Coronary artery disease: Status: Chronic Qualifiers: Associated angina: angina presence unspecified Coronary Disease- Associated Artery/Lesion type: [place] artery [place] vs. transplanted heart: [place] heart Qualified Code(s): I25.10 - Atherosclerotic heart disease of [place] coronary artery without angina pectoris (13) Hyperlipidemia: Status: Chronic Qualifiers: Hyperlipidemia type: mixed hyperlipidemia Qualified Code(s): E78.2 - Mixed hyperlipidemia
[2022-08-07] MEDS ORDERED: GLUCOPHAGE ONE (19:54)
[2022-08-07] MEDS: GLUCOPHAGE PO SCH (20:26)
[2022-08-07] MEDS: RESTORIL CAP 15 MG PO PRN (20:26)
[2022-08-07] MEDS: LIPITOR TAB 40 MG PO SCH (20:26)
[2022-08-08 05:04] LABS: BASOPHILS % (AUTO) 0.3 % (0.2-1.0); HEMATOCRIT 33.5 % (36.0-47.0); HEMOGLOBIN 11.9 g/dL (12.0-16.0); LYMPHOCYTES # (AUTO) 1.4 X10^3/uL (1.3-2.9); MEAN CORPUSCULAR HEMOGLOBIN 28.9 pg (27.0-34.0); MEAN CORPUSCULAR HGB CONC 35.5 g/dL (33.0-35.0); MEAN CORPUSCULAR VOLUME 81.6 fL (80.0-100.0); MEAN PLATELET VOLUME 7.3 fL (7.4-11.0); MONOCYTES # (AUTO) 0.7 x10^3/uL (0.3-0.8); MONOCYTES % (AUTO) 8.2 % (0.0-13.0); NEUTROPHILS # (AUTO) 6.1 x10^3/uL (2.2-4.8); NEUTROPHILS % (AUTO) 74.5 % (42.0-75.0); RED BLOOD COUNT 4.11 X10^6/uL (3.5-5.4); RED CELL DISTRIBUTION WIDTH 13.2 % (11.6-16.5); WHITE BLOOD COUNT 8.2 X10^3/uL (3.6-10.0)
[2022-08-08 05:12] LABS: ALANINE AMINOTRANSFERASE 14 Units/L (12-78); ALBUMIN 2.9 g/dL (3.4-5.0); ALKALINE PHOSPHATASE 132 Units/L (46-116); ASPARTATE AMINO TRANSFERASE 13 Units/L (15-37); BLOOD UREA NITROGEN 8 mg/dL (7-18); CALCIUM 8.3 mg/dL (8.5-10.1); CARBON DIOXIDE 28.4 mmol/L (21-32); CHLORIDE 102 mmol/L (98-107); COR CA(FOR HYPOALB) 9.2 mg/dL (8.5-10.1); COR NA(FOR HYPERGLY) 138 mmol/L (136-145); MAGNESIUM 1.8 mg/dL (2.0-2.9); SODIUM 137 mmol/L (136-145); TOTAL PROTEIN 5.5 g/dL (6.4-8.2); eGFR NON BLACK RACES > 60 (>60)
[2022-08-08] MEDS: NS 1,000 ML IV 1,000 ML IV SCH ×2 (05:30→11:00)
[2022-08-08] MEDS: NORVASC TAB 10 MG PO SCH (08:14)
[2022-08-08] MEDS: PROTONIX INJ 40 MG VIAL IVP SCH ×2 (08:14→20:20)
[2022-08-08] MEDS: LOVENOX INJ 40 MG SYR SC SCH (08:14)
[2022-08-08] MEDS: SYNTHROID 50 mcg TAB PO SCH (08:14)
[2022-08-08] MEDS: CORDARONE TAB 200 MG PO SCH (08:14)
[2022-08-08] MEDS: DIFLUCAN PO SCH (08:14)
[2022-08-08] MEDS: PLAVIX PO SCH (08:15)
[2022-08-08] MEDS: ASPIRIN EC 81 MG PO SCH (08:15)
[2022-08-08] MEDS: PEPCID 20 MG VIAL 20 MG in NS 50 ML IV 50 ML IV SCH ×2 (08:15→20:20)
[2022-08-08] MEDS: MAGNESIUM SULFATE 1 GRAM/100 mL PREMIX 1 G/100 ML BAG IV PRN ×2 (09:15→13:06)
[2022-08-08] MEDS: ROCEPHIN VIAL 1 GRAM 1 G in NS 100 ML IV 100 ML IV SCH (10:49)
[2022-08-08] MEDS: NovoLIN R (or HumuLIN R) SUBCUT PRN ×2 (10:54→16:01)
--- NOTE | 2022-08-08 11:13 | PCM.PROG ---
Progress Note Progress Note for Day of Date of Exam: 08/08/22 Subjective Subjective: Patient seen at bedside, no acute events overnight. She is feeling better today. She has been tolerating her diet. Denies vomiting or diarrhea. Denies abdominal pain. She underwent EGD due to intractable N/V, found to have eugenia esophagitis. She is currently on full liquids. Lumbar MRI showed multi-level DDD. Labs/imaging reviewed Urine Cx: E.coli and Klebsiella Plan: advance diet to diabetic diet, zofran prn. Continue Diflucan. Start Rocephin for UTI. Continue gentle hydration. Ambulate as tolerated, PT/OT prn. Monitor AM labs, replace electrolytes as needed. Past Medical Family Social History Past Med/Fam/Surg Hx: No changes since H&P Allergies: Allergies atorvastatin [From Lipitor] Allergy (Verified 08/04/22 20:23) codeine Allergy (Verified 08/04/22 20:23) Penicillins Allergy (Verified 08/04/22 20:23) ANY COUGH SYRUP Allergy (Uncoded 08/04/22 20:23) Review of Systems ROS: No change since H&P Vital Signs and I&O's Vital Signs: Temperature 97.9 F Pulse Rate 92 Respiratory Rate 23 Blood Pressure [Right Arm] 136/78 Blood Pressure [Left Arm] 130/59 Blood Pressure 156/68 O2 Sat by Pulse Oximetry 99 Intake and Output: Intake & Output 08/05/22 08/06/22 08/07/22 08/08/22 23:59 23:59 23:59 23:59 Intake Total 2356 / 2356 2172 / 2172 1967 / 1967 510 / 510 Output Total 200 / 200 850 / 850 800 / 800 Balance 2156 / 2156 1322 / 1322 1168 / 1168 510 / 510 Physical Exam Oriented: Normal Eyes: Normal Ear: Normal Nose: Normal Throat: Red Respiratory: Normal Cardiovascular: Normal Auscultation: Bowel Sounds: Normal Tenderness: Normal Skin: Decreased Turgur Musculoskeletal: Back:Lumbar Psychiatric: Normal Mood Description: Calm Affect: Normal Speech Pattern: Clear and Appropriate Laboratory and Diagnostics Result Diagrams: 08/08/22 04:14 08/08/22 04:14 Labs: 08/06/22 15:10 Urine,Clean Catch Urine Culture - Final Escherichia Coli Klebsiella Pneumoniae 08/05/22 04:12 Urine,Clean Catch Urine Culture - Final Laboratory WBC 8.2 X10^3/uL (3.6-10.0) 08/08/22 04:14 RBC 4.11 X10^6/uL (3.5-5.4) 08/08/22 04:14 Hgb 11.9 g/dL (12.0-16.0) L 08/08/22 04:14 Hct 33.5 % (36.0-47.0) L 08/08/22 04:14 MCV 81.6 fL (80.0-100.0) 08/08/22 04:14 MCH 28.9 pg (27.0-34.0) 08/08/22 04:14 MCHC 35.5 g/dL (33.0-35.0) H 08/08/22 04:14 RDW 13.2 % (11.6-16.5) 08/08/22 04:14 Plt Count 365 X10^3/uL (150.0-450.0) 08/08/22 04:14 MPV 7.3 fL (7.4-11.0) L 08/08/22 04:14 Neut % (Auto) 74.5 % (42.0-75.0) 08/08/22 04:14 Lymph % (Auto) 17.0 % (21.0-51.0) L 08/08/22 04:14 [place] % (Auto) 8.2 % (0.0-13.0) 08/08/22 04:14 Eos % (Auto) 0.0 % (0.9-2.9) L 08/08/22 04:14 Baso % (Auto) 0.3 % (0.2-1.0) 08/08/22 04:14 Neut # (Auto) 6.1 x10^3/uL (2.2-4.8) H 08/08/22 04:14 Lymph # (Auto) 1.4 X10^3/uL (1.3-2.9) 08/08/22 04:14 [place] # (Auto) 0.7 x10^3/uL (0.3-0.8) 08/08/22 04:14 Eos # (Auto) 0.0 x10^3/uL (0.0-0.2) 08/08/22 04:14 Baso # (Auto) 0.0 X10^3/uL (0.0-0.1) 08/08/22 04:14 Absolute Nucleated RBC 0.0 /100WBC 08/08/22 04:14 Sodium 137 mmol/L (136-145) 08/08/22 04:14 Corrected Sodium 138 mmol/L (136-145) 08/08/22 04:14 Potassium 3.9 mmol/L (3.5-5.1) 08/08/22 04:14 Chloride 102 mmol/L (98-107) 08/08/22 04:14 Carbon Dioxide 28.4 mmol/L (21-32) 08/08/22 04:14 BUN 8 mg/dL (7-18) 08/08/22 04:14 Creatinine 0.70 mg/dL (0.55-1.02) 08/08/22 04:14 Est GFR (MDRD) Af Amer > 60 (>60) 08/08/22 04:14 Est GFR (MDRD) Non-Af > 60 (>60) 08/08/22 04:14 Glucose 160 mg/dL (65-99) H 08/08/22 04:14 POC Glucose (mg/dL) 247 mg/dL (65-99) H 08/08/22 10:53 Calcium 8.3 mg/dL (8.5-10.1) L 08/08/22 04:14 Corrected Calcium 9.2 mg/dL (8.5-10.1) 08/08/22 04:14 Magnesium 1.8 mg/dL (2.0-2.9) L 08/08/22 04:14 Total Bilirubin 0.50 mg/dL (0.2-1.0) 08/08/22 04:14 AST 13 Units/L (15-37) L 08/08/22 04:14 ALT 14 Units/L (12-78) 08/08/22 04:14 Alkaline Phosphatase 132 Units/L (46-116) H 08/08/22 04:14 Total Protein 5.5 g/dL (6.4-8.2) L 08/08/22 04:14 Albumin 2.9 g/dL (3.4-5.0) L 08/08/22 04:14 Globulin 2.6 g/dL (2.5-4.5) 08/08/22 04:14 Albumin/Globulin Ratio 1.1 Ratio (1.1-2.1) 08/08/22 04:14 Amylase 53 Units/L (25-115) 08/04/22 16:39 Lipase 70 Units/L (73-393) L 08/04/22 16:39 Specimen Type Clean catch urine 08/06/22 15:10 Urine Color Yellow (YELLOW) 08/06/22 15:10 Urine Appearance Slightly hazy (CLEAR) 08/06/22 15:10 Urine pH 6.0 (5.0 - 8.0) 08/06/22 15:10 Ur Specific [place] 1.025 (1.000-1.030) 08/06/22 15:10 Urine Protein 2+ (NEGATIVE) 08/06/22 15:10 Urine Glucose (UA) 3+ (NEGATIVE) 08/06/22 15:10 Urine Ketones Negative (NEGATIVE) 08/06/22 15:10 Urine Blood 2+ (NEGATIVE) 08/06/22 15:10 Urine Nitrite Negative (NEGATIVE) 08/06/22 15:10 Urine Bilirubin Negative (NEGATIVE) 08/06/22 15:10 Urine Urobilinogen Normal (NORMAL) 08/06/22 15:10 Ur Leukocyte Esterase 3+ (NEGATIVE) 08/06/22 15:10 Urine RBC 3-5 /HPF (0-3) A 08/06/22 15:10 Urine WBC 3-5 /HPF (0-5) 08/06/22 15:10 Ur Squamous Epith Cells Rare /HPF (NEGATIVE) 08/06/22 15:10 Amorphous Sediment 1+ /HPF (NEGATIVE) 08/06/22 15:10 Urine Bacteria Negative /HPF (NEGATIVE) 08/06/22 15:10 Hyaline Casts Few /LPF (NEGATIVE) 08/05/22 04:12 Urine Mucus Moderate /HPF (NEGATIVE) 08/05/22 04:12 Ur Culture Indicated? No/not indicated 08/06/22 15:10 Plan (1) Urinary tract infection: Status: Acute (2) Dehydration: Status: Acute (3) Gastritis: Status: Acute Qualifiers: Chronicity: unspecified Gastritis bleeding: presence of bleeding unspecified (4) [place]enia esophagitis: Status: Acute (5) Hyponatremia: Status: Acute (6) Hypomagnesemia: Status: Acute (7) Generalized weakness: Status: Acute (8) Nausea & vomiting: Status: Acute Qualifiers: Vomiting type: unspecified Qualified Code(s): R11.2 - Nausea with vomiting, unspecified (9) Lumbar back pain with radiculopathy affecting lower extremity: Status: Acute Plan: OBTAIN LUMBAR SPINE MRI WITHOUT CONTRAST (10) Hypertension: Status: Chronic Qualifiers: Hypertension type: primary hypertension Qualified Code(s): I10 - Essential (primary) hypertension (11) Dementia: Status: Chronic Qualifiers: Dementia behavioral or psychological symptom: unspecified whether behavioral, psychotic, or mood disturbance or anxiety Dementia severity: unspecified severity Dementia type: vascular dementia Qualified Code(s): F01.50 - Vascular dementia, unspecified severity, without behavioral disturbance, psychotic disturbance, mood disturbance, and anxiety (12) Diabetes: Status: Chronic Qualifiers: Diabetes mellitus complication status: without complication Diabetes mellitus residential insulin use: with exterminator use Diabetes mellitus type: type 2 Qualified Code(s): E11.9 - Type 2 diabetes mellitus without complications; Z79.4 - nursing home (current) use of insulin; Z79.4 - nursing home (current) use of insulin; Z79.4 - moth exterminator (current) use of insulin; Z79.4 - moth exterminator (current) use of insulin (13) Coronary artery disease: Status: Chronic Qualifiers: Associated angina: angina presence unspecified Coronary Disease- Associated Artery/Lesion type: [place] artery [place] vs. transplanted heart: [place] heart Qualified Code(s): I25.10 - Atherosclerotic heart disease of [place] coronary artery without angina pectoris (14) Hyperlipidemia: Status: Chronic Qualifiers: Hyperlipidemia type: mixed hyperlipidemia Qualified Code(s): E78.2 - Mixed hyperlipidemia
[2022-08-08] MEDS ORDERED: GLUCOPHAGE ONE (19:59)
[2022-08-08] MEDS: RESTORIL CAP 15 MG PO PRN (20:20)
[2022-08-08] MEDS: GLUCOPHAGE PO SCH (20:20)
[2022-08-08] MEDS: LIPITOR TAB 40 MG PO SCH (20:20)
[2022-08-09 05:04] LABS: BASOPHILS % (AUTO) 0.4 % (0.2-1.0); HEMATOCRIT 31.6 % (36.0-47.0); HEMOGLOBIN 11.2 g/dL (12.0-16.0); LYMPHOCYTES # (AUTO) 1.4 X10^3/uL (1.3-2.9); LYMPHOCYTES % (AUTO) 18.6 % (21.0-51.0); MEAN CORPUSCULAR HGB CONC 35.5 g/dL (33.0-35.0); MEAN CORPUSCULAR VOLUME 81.6 fL (80.0-100.0); MEAN PLATELET VOLUME 7.4 fL (7.4-11.0); MONOCYTES # (AUTO) 0.7 x10^3/uL (0.3-0.8); MONOCYTES % (AUTO) 9.2 % (0.0-13.0); NEUTROPHILS # (AUTO) 5.3 x10^3/uL (2.2-4.8); NEUTROPHILS % (AUTO) 71.8 % (42.0-75.0); RED BLOOD COUNT 3.87 X10^6/uL (3.5-5.4); RED CELL DISTRIBUTION WIDTH 13.3 % (11.6-16.5); WHITE BLOOD COUNT 7.4 X10^3/uL (3.6-10.0)
[2022-08-09 05:17] LABS: ALANINE AMINOTRANSFERASE 13 Units/L (12-78); ALBUMIN 2.7 g/dL (3.4-5.0); ALKALINE PHOSPHATASE 123 Units/L (46-116); ASPARTATE AMINO TRANSFERASE 13 Units/L (15-37); BLOOD UREA NITROGEN 9 mg/dL (7-18); CALCIUM 7.9 mg/dL (8.5-10.1); CARBON DIOXIDE 26.3 mmol/L (21-32); CHLORIDE 104 mmol/L (98-107); COR CA(FOR HYPOALB) 8.9 mg/dL (8.5-10.1); COR NA(FOR HYPERGLY) 138 mmol/L (136-145); CREATININE 0.74 mg/dL (0.55-1.02); SODIUM 137 mmol/L (136-145); TOTAL PROTEIN 5.3 g/dL (6.4-8.2); eGFR NON BLACK RACES > 60 (>60)
[2022-08-09] MEDS: NS 1,000 ML IV 1,000 ML IV SCH ×2 (05:59→09:00)
[2022-08-09 08:27] VITALS: BP 122/73
[2022-08-09] MEDS: SYNTHROID 50 mcg TAB PO SCH (08:59)
[2022-08-09] MEDS: DIFLUCAN PO SCH (08:59)
[2022-08-09] MEDS: NORVASC TAB 10 MG PO SCH (08:59)
[2022-08-09] MEDS: CORDARONE TAB 200 MG PO SCH (08:59)
[2022-08-09] MEDS: LOVENOX INJ 40 MG SYR SC SCH (08:59)
[2022-08-09] MEDS: PROTONIX INJ 40 MG VIAL IVP SCH (08:59)
[2022-08-09] MEDS: PLAVIX PO SCH (08:59)
[2022-08-09] MEDS: ASPIRIN EC 81 MG PO SCH (08:59)
[2022-08-09] MEDS: PEPCID 20 MG VIAL 20 MG in NS 50 ML IV 50 ML IV SCH (09:00)
[2022-08-09] MEDS: ROCEPHIN VIAL 1 GRAM 1 G in NS 100 ML IV 100 ML IV SCH (09:00)
== END 2022-08-09 13:20 | disposition home health service (06) ==
LOC: ICU
PROVIDERS: ADMIT Internal Medicine; ATTEND Internal Medicine
DX: I25.10 Atherosclerotic heart disease of native coronary artery without angina pectoris; R10.13 Epigastric pain; E83.42 Hypomagnesemia; M54.59 Other low back pain; B37.81 Candidal esophagitis; K29.00 Acute gastritis without bleeding; E78.2 Mixed hyperlipidemia; M54.16 Radiculopathy, lumbar region; B96.29 Other Escherichia coli [E. coli] as the cause of diseases classified elsewhere; R20.0 Anesthesia of skin; Z85.038 Personal history of other malignant neoplasm of large intestine; N39.0 Urinary tract infection, site not specified; E86.0 Dehydration; F01.50 Vascular dementia, unspecified severity, without behavioral disturbance, psychotic disturbance, mood disturbance, and anxiety; K29.70 Gastritis, unspecified, without bleeding; R53.1 Weakness; Z79.4 Long term (current) use of insulin; E87.1 Hypo-osmolality and hyponatremia; K44.9 Diaphragmatic hernia without obstruction or gangrene; I10 Essential (primary) hypertension; B96.1 Klebsiella pneumoniae [K. pneumoniae] as the cause of diseases classified elsewhere; R26.89 Other abnormalities of gait and mobility; R11.2 Nausea with vomiting, unspecified; K22.2 Esophageal obstruction; E11.65 Type 2 diabetes mellitus with hyperglycemia

== ENCOUNTER 2023-03-23 11:11 | Observation (INO) ==
[2023-03-23 14:15] LABS: BILIRUBIN,URINE NEGATIVE (NEGATIVE); BLOOD/HEMOGLOBIN,URINE 3+ (NEGATIVE); GLUCOSE, URINE NEGATIVE (NEGATIVE); KETONES,URINE NEGATIVE (NEGATIVE); LEUKOCYTE ESTERASE ,URINE NEGATIVE (NEGATIVE); NITRITES,URINE NEGATIVE (NEGATIVE); PROTEIN,URINE 2+ (NEGATIVE); UROBILINOGEN,URINE NORMAL (NORMAL)
[2023-03-23] MEDS ORDERED: NS 1,000 ML IV 1,000 ML IV SCH (14:20)
[2023-03-23 14:24] VITALS: BMI 20.1
[2023-03-23 14:32] LABS: APPEARANCE,URINE CLEAR (CLEAR); BACTERIA,URINE NEGATIVE /HPF (NEGATIVE); COLOR,URINE STRAW (YELLOW); SQUAMOUS EPITHELIAL CELL,UR RARE /HPF (NEGATIVE)
[2023-03-23 14:57] LABS: BASOPHILS % (AUTO) 0.3 % (0.2-1.0); EOSINOPHILS % (AUTO) 0.3 % (0.9-2.9); HEMATOCRIT 37.1 % (36.0-47.0); HEMOGLOBIN 12.7 g/dL (12.0-16.0); LYMPHOCYTES # (AUTO) 1.9 X10^3/uL (1.3-2.9); LYMPHOCYTES % (AUTO) 16.4 % (21.0-51.0); MEAN CORPUSCULAR HEMOGLOBIN 29.1 pg (27.0-34.0); MEAN CORPUSCULAR HGB CONC 34.2 g/dL (33.0-35.0); MEAN CORPUSCULAR VOLUME 85.1 fL (80.0-100.0); MEAN PLATELET VOLUME 7.4 fL (7.4-11.0); MONOCYTES # (AUTO) 0.9 x10^3/uL (0.3-0.8); MONOCYTES % (AUTO) 8.3 % (0.0-13.0); NEUTROPHILS # (AUTO) 8.5 x10^3/uL (2.2-4.8); NEUTROPHILS % (AUTO) 74.7 % (42.0-75.0); PLATELET COUNT 380 X10^3/uL (150.0-450.0); RED BLOOD COUNT 4.36 X10^6/uL (3.5-5.4); RED CELL DISTRIBUTION WIDTH 13.5 % (11.6-16.5); WHITE BLOOD COUNT 11.4 X10^3/uL (3.6-10.0)
[2023-03-23 15:00] LABS: ALANINE AMINOTRANSFERASE 19 Units/L (12-78); ALBUMIN 3.9 g/dL (3.4-5.0); ALKALINE PHOSPHATASE 129 Units/L (46-116); ASPARTATE AMINO TRANSFERASE 25 Units/L (15-37); BLOOD UREA NITROGEN 24 mg/dL (7-18); CALCIUM 8.7 mg/dL (8.5-10.1); CARBON DIOXIDE 34.3 mmol/L (21-32); CHLORIDE 90 mmol/L (98-107); COR NA(FOR HYPERGLY) 131 mmol/L (136-145); CREATININE 1.22 mg/dL (0.55-1.02); GLUCOSE 186 mg/dL (65-99); POTASSIUM 3.1 mmol/L (3.5-5.1); SODIUM 129 mmol/L (136-145); TOTAL PROTEIN 7.4 g/dL (6.4-8.2); eGFR NON BLACK RACES 44 (>60)
[2023-03-23] MEDS ORDERED: ZOFRAN INJ 4 MG VIAL ONE (15:05)
[2023-03-23] MEDS ORDERED: MORPHINE SULFATE INJ 2 MG INJ ONE (15:05)
[2023-03-23] MEDS ORDERED: NS 1,000 ML IV 1,000 ML ONE (15:06)
[2023-03-23] MEDS: MORPHINE SULFATE INJ 2 MG INJ IVP PRN (15:19)
[2023-03-23] MEDS: ZOFRAN INJ 4 MG VIAL IVP PRN (15:19)
[2023-03-23] MEDS ORDERED: CONSULT PHARMACY - POTASSIUM & MAGNESIUM XX SCH (16:00)
[2023-03-23] MEDS ORDERED: CATAPRES TAB 0.1 MG PO ONE (16:22)
[2023-03-23] MEDS ORDERED: CATAPRES TAB 0.1 MG ONE (16:49)
[2023-03-23] MEDS ORDERED: NS + KCL 20 MEQ/L 1,000 ML IV ONE (16:49)
[2023-03-23] MEDS: NS + KCL 20 MEQ/L 1,000 ML IV SCH (16:52)
--- NOTE | 2023-03-23 19:59 | RAD ---
EXAM:CHEST, 1 VIEWHISTORY:INTRACTABLE BACK AND HIP PAIN;COMPARISON:Chest CT 08/18/2022FINDINGS:Focal opacity in the lateral lower left lung has a linear margin. This might be a skin fold. But could also be an abnormality in the lung. There was no finding at this location on the CT from August. Could be pneumonia or atelectasis.Right lung clear. There is calcification in the anterior costochondral junctions.Heart size is normal. There are calcifications in the arteries consistent with atherosclerosis.The bones are unremarkable.IMPRESSION:1. Possible left lung atelectasis or pneumoniaTHIS IS AN ELECTRONICALLY VERIFIED FINAL [id number]/23/2023 7:30 PM - Electronically signed by Jermaine Grimaldo MD
[2023-03-24] MEDS: NS + KCL 20 MEQ/L 1,000 ML IV SCH ×3 (04:31→20:20)
[2023-03-24] MEDS: MORPHINE SULFATE INJ 2 MG INJ IVP PRN ×2 (04:32→23:29)
[2023-03-24] MEDS: ZOFRAN INJ 4 MG VIAL IVP PRN ×2 (04:33→23:30)
[2023-03-24 05:47] LABS: BASOPHILS % (AUTO) 0.8 % (0.2-1.0); EOSINOPHILS # (AUTO) 0.1 x10^3/uL (0.0-0.2); EOSINOPHILS % (AUTO) 1.4 % (0.9-2.9); HEMATOCRIT 31.7 % (36.0-47.0); HEMOGLOBIN 10.9 g/dL (12.0-16.0); LYMPHOCYTES # (AUTO) 1.3 X10^3/uL (1.3-2.9); LYMPHOCYTES % (AUTO) 22.5 % (21.0-51.0); MEAN CORPUSCULAR HEMOGLOBIN 29.3 pg (27.0-34.0); MEAN CORPUSCULAR HGB CONC 34.4 g/dL (33.0-35.0); MEAN PLATELET VOLUME 7.2 fL (7.4-11.0); MONOCYTES # (AUTO) 0.7 x10^3/uL (0.3-0.8); MONOCYTES % (AUTO) 11.6 % (0.0-13.0); NEUTROPHILS # (AUTO) 3.7 x10^3/uL (2.2-4.8); NEUTROPHILS % (AUTO) 63.7 % (42.0-75.0); PLATELET COUNT 295 X10^3/uL (150.0-450.0); RED BLOOD COUNT 3.73 X10^6/uL (3.5-5.4); RED CELL DISTRIBUTION WIDTH 13.6 % (11.6-16.5); WHITE BLOOD COUNT 5.8 X10^3/uL (3.6-10.0)
[2023-03-24 05:56] LABS: ALANINE AMINOTRANSFERASE 13 Units/L (12-78); ALBUMIN 2.8 g/dL (3.4-5.0); ALKALINE PHOSPHATASE 99 Units/L (46-116); ASPARTATE AMINO TRANSFERASE 20 Units/L (15-37); BLOOD UREA NITROGEN 17 mg/dL (7-18); CALCIUM 7.8 mg/dL (8.5-10.1); CARBON DIOXIDE 35.1 mmol/L (21-32); CHLORIDE 99 mmol/L (98-107); COR CA(FOR HYPOALB) 8.8 mg/dL (8.5-10.1); COR NA(FOR HYPERGLY) 137 mmol/L (136-145); CREATININE 0.98 mg/dL (0.55-1.02); GLUCOSE 128 mg/dL (65-99); MAGNESIUM 1.9 mg/dL (2.0-2.9); POTASSIUM 3.5 mmol/L (3.5-5.1); SODIUM 136 mmol/L (136-145); TOTAL PROTEIN 5.5 g/dL (6.4-8.2); eGFR NON BLACK RACES 57 (>60)
[2023-03-24] MEDS ORDERED: CONSULT PHARMACY - POTASSIUM & MAGNESIUM XX SCH ×2 (07:00)
[2023-03-24] MEDS ORDERED: K-DUR TAB 20 MEQ PO SCH (09:00)
[2023-03-24] MEDS: MAG-OX TAB PO SCH ×2 (10:35→11:46)
[2023-03-24] MEDS: ROCEPHIN VIAL 1 GRAM 1 G in NS 100 ML IV 100 ML IV SCH (11:48)
[2023-03-24] MEDS: MILK OF MAGNESIA PO SCH (11:48)
[2023-03-24] MEDS: COZAAR PO SCH (13:55)
[2023-03-24] MEDS: HYDROCHLOROTHIAZIDE 12.5 MG CAP PO SCH (13:55)
[2023-03-24] MEDS: NORVASC TAB 10 MG PO SCH (13:56)
[2023-03-24] MEDS: SYNTHROID 50 mcg TAB PO SCH (13:56)
[2023-03-24] MEDS: CORDARONE TAB 200 MG PO SCH (13:59)
--- NOTE | 2023-03-24 19:20 | PCM.PROG ---
Progress Note Progress Note for Day of Date of Exam: 03/24/23 Subjective Subjective: PT IS 88WF, DIRECT ADMIT FROM DR MTZ'S PRACTICE WITH INTRACTABLE LOWER BACK PAIN AND WEAKNESS DUE TO DECREASED MOBILITY. PT HAD RECENT MRI WITH MULTI LEVEL DEGENERATIVE DISC AND SPINAL CANAL STENOSIS. PT REPORTS SHE HAS HAD INTERVENTIONS WITH SPINE BLOCKING, PAIN MANAGEMENT WITHOUT IMPROVEMENT. PT REPORT SHE LIVES ALONE AND HAS BEEN UNABLE TO PERFORM HER ADLS. PLAN TO DISCUSS OPTIONS FOR REHAB THERAPY AND PAIN CONTROL. PTS HOME MEDICATION HAS BEEN REVIEWED AND RESUMED. PT DENIES ANY RECENT FEVER OR FLU LIKE SYMPTOMS. Past Medical Family Social History Allergies: Allergies atorvastatin [From Lipitor] Allergy (Verified 08/04/22 20:23) codeine Allergy (Verified 08/04/22 20:23) Penicillins Allergy (Verified 08/04/22 20:23) ANY COUGH SYRUP Allergy (Uncoded 08/04/22 20:23) Vital Signs and I&O's Vital Signs: Vital Signs Temperature 97.2 F Temperature 97.7 F Pulse Rate [Left] 60 Pulse Rate [Left] 60 Respiratory Rate 18 Respiratory Rate 18 Blood Pressure [Right Arm] 181/79 Blood Pressure [Right Arm] 192/88 O2 Sat by Pulse Oximetry 93 O2 Sat by Pulse Oximetry 94 Intake and Output: Intake & Output 03/22/23 03/23/23 03/24/23 03/25/23 11:59 11:59 11:59 11:59 Intake Total 120 / 120 555 / 555 1115 / 1115 Output Total 0 / 0 Balance 120 / 120 555 / 555 1115 / 1115 Physical Exam Oriented: Normal Eyes: Normal Throat: Dry Respiratory: Diminished Cardiovascular: Normal Auscultation: Bowel Sounds: Normal Tenderness: Normal Skin: Normal Musculoskeletal: Back:Thoracic, Back:Lumbar and Back:Paraspinous Mood Description: Depressed Affect: Depressed Speech Pattern: Clear and Appropriate Laboratory and Diagnostics 03/24/23 05:20 03/24/23 05:20 Labs: Laboratory WBC 5.8 X10^3/uL (3.6-10.0) 03/24/23 05:20 RBC 3.73 X10^6/uL (3.5-5.4) 03/24/23 05:20 Hgb 10.9 g/dL (12.0-16.0) L 03/24/23 05:20 Hct 31.7 % (36.0-47.0) L 03/24/23 05:20 MCV 85.0 fL (80.0-100.0) 03/24/23 05:20 MCH 29.3 pg (27.0-34.0) 03/24/23 05:20 MCHC 34.4 g/dL (33.0-35.0) 03/24/23 05:20 RDW 13.6 % (11.6-16.5) 03/24/23 05:20 Plt Count 295 X10^3/uL (150.0-450.0) 03/24/23 05:20 MPV 7.2 fL (7.4-11.0) L 03/24/23 05:20 Neut % (Auto) 63.7 % (42.0-75.0) 03/24/23 05:20 Lymph % (Auto) 22.5 % (21.0-51.0) 03/24/23 05:20 [place] % (Auto) 11.6 % (0.0-13.0) 03/24/23 05:20 Eos % (Auto) 1.4 % (0.9-2.9) 03/24/23 05:20 Baso % (Auto) 0.8 % (0.2-1.0) 03/24/23 05:20 Neut # (Auto) 3.7 x10^3/uL (2.2-4.8) 03/24/23 05:20 Lymph # (Auto) 1.3 X10^3/uL (1.3-2.9) 03/24/23 05:20 [place] # (Auto) 0.7 x10^3/uL (0.3-0.8) 03/24/23 05:20 Eos # (Auto) 0.1 x10^3/uL (0.0-0.2) 03/24/23 05:20 Baso # (Auto) 0.0 X10^3/uL (0.0-0.1) 03/24/23 05:20 Absolute Nucleated RBC 0.0 /100WBC 03/24/23 05:20 Sodium 136 mmol/L (136-145) 03/24/23 05:20 Corrected Sodium 137 mmol/L (136-145) 03/24/23 05:20 Potassium 3.5 mmol/L (3.5-5.1) 03/24/23 05:20 Chloride 99 mmol/L (98-107) 03/24/23 05:20 Carbon Dioxide 35.1 mmol/L (21-32) H 03/24/23 05:20 BUN 17 mg/dL (7-18) 03/24/23 05:20 Creatinine 0.98 mg/dL (0.55-1.02) 03/24/23 05:20 Est GFR (MDRD) Af Amer > 60 (>60) 03/24/23 05:20 Est GFR (MDRD) Non-Af 57 (>60) L 03/24/23 05:20 Glucose 128 mg/dL (65-99) H 03/24/23 05:20 POC Glucose (mg/dL) 168 mg/dL (65-99) H 03/24/23 16:04 Calcium 7.8 mg/dL (8.5-10.1) L 03/24/23 05:20 Corrected Calcium 8.8 mg/dL (8.5-10.1) 03/24/23 05:20 Magnesium 1.9 mg/dL (2.0-2.9) L 03/24/23 05:20 Total Bilirubin 0.50 mg/dL (0.2-1.0) 03/24/23 05:20 AST 20 Units/L (15-37) 03/24/23 05:20 ALT 13 Units/L (12-78) 03/24/23 05:20 Alkaline Phosphatase 99 Units/L (46-116) 03/24/23 05:20 Total Protein 5.5 g/dL (6.4-8.2) L 03/24/23 05:20 Albumin 2.8 g/dL (3.4-5.0) L 03/24/23 05:20 Globulin 2.7 g/dL (2.5-4.5) 03/24/23 05:20 Albumin/Globulin Ratio 1.0 Ratio (1.1-2.1) L 03/24/23 05:20 Specimen Type Clean catch urine 03/23/23 13:40 Urine Color Straw (YELLOW) 03/23/23 13:40 Urine Appearance Clear (CLEAR) 03/23/23 13:40 Urine pH 6.0 (5.0 - 8.0) 03/23/23 13:40 Ur Specific [place] 1.015 (1.000-1.030) 03/23/23 13:40 Urine Protein 2+ (NEGATIVE) 03/23/23 13:40 Urine Glucose (UA) Negative (NEGATIVE) 03/23/23 13:40 Urine Ketones Negative (NEGATIVE) 03/23/23 13:40 Urine Blood 3+ (NEGATIVE) 03/23/23 13:40 Urine Nitrite Negative (NEGATIVE) 03/23/23 13:40 Urine Bilirubin Negative (NEGATIVE) 03/23/23 13:40 Urine Urobilinogen Normal (NORMAL) 03/23/23 13:40 Ur Leukocyte Esterase Negative (NEGATIVE) 03/23/23 13:40 Urine RBC 3-5 /HPF (0-3) A 03/23/23 13:40 Urine WBC 0-2 /HPF (0-5) 03/23/23 13:40 Ur Squamous Epith Cells Rare /HPF (NEGATIVE) 03/23/23 13:40 Urine Bacteria Negative /HPF (NEGATIVE) 03/23/23 13:40 Urine Mucus Rare /HPF (NEGATIVE) 03/23/23 13:40 Ur Culture Indicated? No/not indicated 03/23/23 13:40 Plan (1) Lumbar back pain with radiculopathy affecting lower extremity: Status: Acute Narrative Support Text: PAIN CONTROL, PT/OT TOLERATED RESUME HOME MEDICATION BP AND BS CONTROL REHAB PLACEMENT (2) Hyperlipidemia: Status: Chronic Qualifiers: Hyperlipidemia type: mixed hyperlipidemia Qualified Code(s): E78.2 - Mixed hyperlipidemia (3) Hypertension: Status: Chronic Qualifiers: Hypertension type: primary hypertension Qualified Code(s): I10 - Essential (primary) hypertension (4) Coronary artery disease: Status: Chronic Qualifiers: Coronary Disease-Associated Artery/Lesion type: [place] artery [place] vs. transplanted heart: elem heart Associated angina: angina presence unspecified Qualified Code(s): I25.10 - Atherosclerotic heart disease of [place] coronary artery without angina pectoris (5) Diabetes: Status: Chronic Qualifiers: Diabetes mellitus type: type 2 Diabetes mellitus complication status: without complication Diabetes mellitus watermelon inspector insulin use: with correction use Qualified Code(s): E11.9 - Type 2 diabetes mellitus without complications; Z79.4 - MCC (current) use of insulin; Z79.4 - marine oil terminal superintendent (current) use of insulin; Z79.4 - MCC (current) use of insulin; Z79.4 - marine oil terminal superintendent (current) use of insulin
[2023-03-24] MEDS ORDERED: GLUCOPHAGE ONE (20:18)
[2023-03-24] MEDS: LIPITOR TAB 40 MG PO SCH (20:19)
[2023-03-24] MEDS ORDERED: GLUCOPHAGE PO SCH (21:00)
--- NOTE | 2023-03-24 22:25 | DR.UPDATE ---
H&P Update H&P Reviewed: Yes Any changes to H&P?: Yes Changes noted:: PRESENTED TO THE OFFICE ON 03/23/23 WITH COMPLAINTS OF SEVERE LOW BACK PAIN AND RIGHT HIP PAIN. PATIENT REPORTS HAVING DECREASED RANGE OF MOTION DUE TO SEVERE PAIN. SHE WAS SCHEDULED FOR AN EPIDURAL DUE TO INTRACTABLE PAIN, BUT REPORTS THAT SHE IS UNABLE TO WAIT FOR THE EPIDURAL. PATIENT LIVES ALONE AT HOME AND IS UNABLE TO PERFORM ADLs DUE TO SEVERE PAIN. WE ADMITTED TO THE HOSPITAL FOR FURTHER EVALUATION AND TREATMENT OF INTRACTABLE RIGHT HIP AND LOW BACK PAIN. ON ARRIVAL TO THE HOSPITAL, HER VITALS WERE 97.3-70-18-96%181/77. LABS WERE OBTAINED. WBC 11.4, RBC 4.36, HGB 12.7, HCT 37.1, SODIUM 129, POTASSIUM 3.1, CHLORIDE 90, CARBON DIOXIDE 34.3, BUN 24, CREATININE 1.22, GLUCOSE 186, CALCIUM 8.7, MAGNESIUM 1.9, TOTAL BILI 0.50, AST 25, ALT 19, ALK PHOS 129, TOTAL PROTEIN 7.4, ALBUMIN 3.9. A URINALYSIS WAS OBTAINED AND REVEALED: WBC 0-2, RBC 3-5, LEUKOCYTES NEGATIVE, BACTERIA NEGATIVE, BLOOD 3+. SHE WAS STARTED ON NORMAL SALINE WITH 20MEQ KCL AT 50 ML/HR, ZOFRAN 4MG IV Q4H PRN, MORPHINE SULFATE 1-2MG IV Q4H PRN, OTBS ACHS. WE WILL RESUME HER HOME MEDICATIONS OF AMIODARONE 100MG DAILY, AMLODIPINE 10MG DAILY, LIPITOR 40MG HS, HCTZ 12.5MG DAILY, SYNTHROID 50MCG DAILY, COZAAR 100MG DAILY, MILK OF [place] 30ML DAILY, GLUCOPHAGE 500MG HS. WE WILL HAVE PHYSICAL THERAPY EVALUATE HER. OTHERWISE, WE WILL FOLLOW UP WITH AM LABS AND CONTINUE TO MONITOR. TIME SPENT ON CLINICAL ASSESSMENT, REVIEWING LABS AND IMAGING, DECISION MAKING, AND DOCUMENTATION GREATER THAN 75 MINUTES. Patient was examined?: Yes Vital Signs: Temp Pulse Pulse Resp BP BP Pulse Ox 03/24/23 20:45 03/24/23 20:45 67 97 03/24/23 19:00 03/24/23 20:00 98.4 F 67 20 136/62 95 03/24/23 16:00 97.2 F L 60 18 181/79 93 L 03/24/23 12:00 97.7 F 60 18 192/88 94 L 03/24/23 10:40 03/24/23 10:40 97.5 F L 64 18 145/66 95 03/24/23 07:00 03/24/23 08:00 97.5 F L 68 18 185/85 95 03/24/23 05:02 18 03/24/23 04:32 18 03/24/23 04:00 97.6 F 69 20 178/77 92 L 03/24/23 00:00 98.2 F 69 20 173/73 95 03/23/23 19:00 03/23/23 20:00 98.3 F 63 18 146/68 95 03/23/23 18:07 162/70 03/23/23 15:49 18 03/23/23 16:00 97.1 F L 66 18 193/87 97 03/23/23 15:19 18 03/23/23 13:41 03/23/23 14:10 03/23/23 13:45 97.3 F L 70 18 181/77 96 O2 Del Method 03/24/23 20:45 Room Air 03/24/23 20:45 03/24/23 19:00 Room Air 03/24/23 20:00 Room Air 03/24/23 16:00 Room Air 03/24/23 12:00 Room Air 03/24/23 10:40 Room Air 03/24/23 10:40 Room Air 03/24/23 07:00 Room Air 03/24/23 08:00 Room Air 03/24/23 05:02 03/24/23 04:32 03/24/23 04:00 Room Air 03/24/23 00:00 Room Air 03/23/23 19:00 Room Air 03/23/23 20:00 Room Air 03/23/23 18:07 03/23/23 15:49 03/23/23 16:00 Room Air 03/23/23 15:19 03/23/23 13:41 Room Air 03/23/23 14:10 Room Air 03/23/23 13:45 Room Air
--- NOTE | 2023-03-25 00:47 | RAD ---
EXAM:CHEST, 1 VIEWHISTORY:SOB;COMPARISON:None. r.br.br obtained.FINDINGS:The heart is normal in size. There is a right paratracheal density concerning for an underlying mass lesion versus lymphadenopathy. Tortuosity of the great vessel origins could also give this appearance. There is no focal infiltrate. There is no effusion. There is no pneumothorax. Multiple skin folds are seen overlying both lungs. The osseous structures are intact.IMPRESSION:No focal infiltrate or effusion.Right paratracheal density which could represent either a right paratracheal mass versus lymphadenopathy. This is more prominent than was seen on the previous study. Further evaluation with CT of the neck with IV contrast is recommended.THIS IS AN ELECTRONICALLY VERIFIED FINAL [id number]/25/2023 12:44 AM - Electronically signed by Sandi Santo MD
[2023-03-25] MEDS: NS + KCL 20 MEQ/L 1,000 ML IV SCH ×2 (06:00→19:26)
[2023-03-25 06:13] LABS: BASOPHILS % (AUTO) 0.4 % (0.2-1.0); EOSINOPHILS # (AUTO) 0.1 x10^3/uL (0.0-0.2); HEMATOCRIT 32.5 % (36.0-47.0); LYMPHOCYTES # (AUTO) 2.1 X10^3/uL (1.3-2.9); LYMPHOCYTES % (AUTO) 30.3 % (21.0-51.0); MEAN CORPUSCULAR HEMOGLOBIN 28.9 pg (27.0-34.0); MEAN CORPUSCULAR HGB CONC 33.8 g/dL (33.0-35.0); MEAN CORPUSCULAR VOLUME 85.5 fL (80.0-100.0); MEAN PLATELET VOLUME 7.3 fL (7.4-11.0); MONOCYTES # (AUTO) 0.7 x10^3/uL (0.3-0.8); MONOCYTES % (AUTO) 10.4 % (0.0-13.0); NEUTROPHILS # (AUTO) 3.9 x10^3/uL (2.2-4.8); NEUTROPHILS % (AUTO) 56.9 % (42.0-75.0); PLATELET COUNT 300 X10^3/uL (150.0-450.0); RED CELL DISTRIBUTION WIDTH 13.7 % (11.6-16.5); WHITE BLOOD COUNT 6.9 X10^3/uL (3.6-10.0)
[2023-03-25 06:33] LABS: ALANINE AMINOTRANSFERASE 11 Units/L (12-78); ALBUMIN 2.7 g/dL (3.4-5.0); ALKALINE PHOSPHATASE 99 Units/L (46-116); ASPARTATE AMINO TRANSFERASE 17 Units/L (15-37); BLOOD UREA NITROGEN 13 mg/dL (7-18); CALCIUM 7.8 mg/dL (8.5-10.1); CARBON DIOXIDE 31.5 mmol/L (21-32); CHLORIDE 99 mmol/L (98-107); COR CA(FOR HYPOALB) 8.8 mg/dL (8.5-10.1); COR NA(FOR HYPERGLY) 136 mmol/L (136-145); CREATININE 1.01 mg/dL (0.55-1.02); GLUCOSE 113 mg/dL (65-99); MAGNESIUM 2.2 mg/dL (2.0-2.9); POTASSIUM 4.2 mmol/L (3.5-5.1); SODIUM 136 mmol/L (136-145); TOTAL PROTEIN 5.5 g/dL (6.4-8.2); eGFR NON BLACK RACES 55 (>60)
[2023-03-25] MEDS: ZOFRAN INJ 4 MG VIAL IVP PRN ×3 (07:43→23:40)
[2023-03-25] MEDS: MORPHINE SULFATE INJ 2 MG INJ IVP PRN ×3 (07:43→23:40)
[2023-03-25] MEDS ORDERED: LOSARTAN HYDROCHLOROTHIAZIDE PO SCH (09:00)
[2023-03-25] MEDS: ROCEPHIN VIAL 1 GRAM 1 G in NS 100 ML IV 100 ML IV SCH (09:38)
[2023-03-25] MEDS: HYDROCHLOROTHIAZIDE 12.5 MG CAP PO SCH (09:38)
[2023-03-25] MEDS: COZAAR PO SCH (09:39)
[2023-03-25] MEDS: SYNTHROID 50 mcg TAB PO SCH (09:39)
[2023-03-25] MEDS: NORVASC TAB 10 MG PO SCH (09:40)
[2023-03-25] MEDS: MILK OF MAGNESIA PO SCH (09:40)
[2023-03-25] MEDS: CORDARONE TAB 200 MG PO SCH (09:47)
[2023-03-25] MEDS ORDERED: NS 100 ML IV 100 ML ONE (12:01)
[2023-03-25] MEDS ORDERED: OMNIPAQUE 350 mg/mL 100 mL BTL 100 ML ONE (12:01)
--- NOTE | 2023-03-25 14:41 | CT ---
EXAM:CHEST WITH CONTRASTHISTORY:SOB; DM, HTN, ORTHO, GB, HERNIA, APPEY, STENTS, COPD, COMPARISON:No relevant prior studies were available for comparison at the time of interpretation..TECHNIQUE:CT images were obtained. Multiplanar reconstructions were created on a separate workstation and used during interpretation. All CT scans at this facility is dose modulation, iterative reconstruction, and/or weight-based dosing as appropriate to reduce radiation to levels as low as reasonably achievable (ALARA). Postprocessing details, radiation dose, and contrast dose (if applicable) are recorded in the patient's medical record.3D maximum intensity projection images were obtained and evaluated.FINDINGS:Lower Neck: No acute soft tissue abnormality. No actionable thyroid nodule.Lymph nodes: No visualized cervical, supraclavicular, axillary, mediastinal, or hilar adenopathyUpper abdomen: No acute abnormality identified in the visualized upper abdomen.Cardiomediastinum: No acute cardiac abnormality. There is an atrial appendage occlusion device. Mitral annulus calcification. Aortic valve calcification. Heavy coronary calcification versus stenting.Vascular: The thoracic aorta is calcified but patent. No significant stenosis of the major branch vessels. No pulmonary artery dilation.Lungs: No suspicious airspace opacity, mass, or nodule. No evidence of traumatic injury. . No effusion or pneumothoraxOsseous structures: T9 compression deformity of uncertain chronicityIMPRESSION:1. T9 compression fracture of uncertain chronicity2. Aortic atherosclerosis3. Coronary atherosclerosis versus stenting4. No acute cardiopulmonary abnormalityTHIS IS AN ELECTRONICALLY VERIFIED FINAL [id number]/2023 2:37 PM - Electronically signed by Prateek Newberry MD
--- NOTE | 2023-03-25 15:38 | PCM.PROG ---
Progress Note Progress Note for Day of Date of Exam: 03/25/23 Subjective Subjective: PT IS 88WF, DIRECT ADMIT FROM DR MTZ'S PRACTICE WITH INTRACTABLE LOWER BACK PAIN AND WEAKNESS DUE TO DECREASED MOBILITY. PT HAD RECENT MRI WITH MULTI LEVEL DEGENERATIVE DISC AND SPINAL CANAL STENOSIS. PT REPORTS SHE HAS HAD INTERVENTIONS WITH SPINE BLOCKING, PAIN MANAGEMENT WITHOUT IMPROVEMENT. PT REPORT SHE LIVES ALONE AND HAS BEEN UNABLE TO PERFORM HER ADLS. PLAN TO DISCUSS OPTIONS FOR REHAB THERAPY AND PAIN CONTROL. PTS HOME MEDICATION HAS BEEN REVIEWED AND RESUMED. PT DENIES ANY RECENT FEVER OR FLU LIKE SYMPTOMS. PT HAD AN ABORNAL CHEST XRAY. PLAN TO OBTAIN A CT OF CHEST WITH CONTRAST. DISCUSSED THIS WITH PT AND HER FAMILY AT BEDSIDE. PT REPORTS INCREASED NAUSEA AND VOMITING R ECENTLY DUE TO PAIN AND PAIN MEDICATION INDUCED NAUSEA. Past Medical Family Social History Allergies: Allergies atorvastatin [From Lipitor] Allergy (Verified 08/04/22 20:23) codeine Allergy (Verified 08/04/22 20:23) Penicillins Allergy (Verified 08/04/22 20:23) ANY COUGH SYRUP Allergy (Uncoded 08/04/22 20:23) Vital Signs and I&O's Vital Signs: Vital Signs Temperature 98.4 F Temperature 99.1 F Pulse Rate [Left] 66 Pulse Rate [Left] 59 Respiratory Rate 20 Respiratory Rate 18 Respiratory Rate 20 Respiratory Rate 20 Respiratory Rate 20 Blood Pressure [Right Arm] 190/83 Blood Pressure [Right Arm] 165/72 O2 Sat by Pulse Oximetry 96 O2 Sat by Pulse Oximetry 97 Intake and Output: Intake & Output 03/23/23 03/24/23 03/25/23 03/26/23 11:59 11:59 11:59 11:59 Intake Total 120 / 120 555 / 555 2621 / 2621 823 / 823 Output Total 0 / 0 Balance 120 / 120 555 / 555 2621 / 2621 823 / 823 Physical Exam Oriented: Normal Eyes: Normal Throat: Dry Respiratory: Diminished Cardiovascular: Normal Auscultation: Bowel Sounds: Normal Tenderness: Normal Skin: Normal Musculoskeletal: Back:Thoracic, Back:Lumbar and Back:Paraspinous Mood Description: Depressed Affect: Depressed Speech Pattern: Clear Laboratory and Diagnostics 03/25/23 05:05 03/25/23 05:05 Labs: Laboratory WBC 6.9 X10^3/uL (3.6-10.0) 03/25/23 05:05 RBC 3.80 X10^6/uL (3.5-5.4) 03/25/23 05:05 Hgb 11.0 g/dL (12.0-16.0) L 03/25/23 05:05 Hct 32.5 % (36.0-47.0) L 03/25/23 05:05 MCV 85.5 fL (80.0-100.0) 03/25/23 05:05 MCH 28.9 pg (27.0-34.0) 03/25/23 05:05 MCHC 33.8 g/dL (33.0-35.0) 03/25/23 05:05 RDW 13.7 % (11.6-16.5) 03/25/23 05:05 Plt Count 300 X10^3/uL (150.0-450.0) 03/25/23 05:05 MPV 7.3 fL (7.4-11.0) L 03/25/23 05:05 Neut % (Auto) 56.9 % (42.0-75.0) 03/25/23 05:05 Lymph % (Auto) 30.3 % (21.0-51.0) 03/25/23 05:05 [place] % (Auto) 10.4 % (0.0-13.0) 03/25/23 05:05 Eos % (Auto) 2.0 % (0.9-2.9) 03/25/23 05:05 Baso % (Auto) 0.4 % (0.2-1.0) 03/25/23 05:05 Neut # (Auto) 3.9 x10^3/uL (2.2-4.8) 03/25/23 05:05 Lymph # (Auto) 2.1 X10^3/uL (1.3-2.9) 03/25/23 05:05 [place] # (Auto) 0.7 x10^3/uL (0.3-0.8) 03/25/23 05:05 Eos # (Auto) 0.1 x10^3/uL (0.0-0.2) 03/25/23 05:05 Baso # (Auto) 0.0 X10^3/uL (0.0-0.1) 03/25/23 05:05 Absolute Nucleated RBC 0.0 /100WBC 03/25/23 05:05 Sodium 136 mmol/L (136-145) 03/25/23 05:05 Corrected Sodium 136 mmol/L (136-145) 03/25/23 05:05 Potassium 4.2 mmol/L (3.5-5.1) 03/25/23 05:05 Chloride 99 mmol/L (98-107) 03/25/23 05:05 Carbon Dioxide 31.5 mmol/L (21-32) 03/25/23 05:05 BUN 13 mg/dL (7-18) 03/25/23 05:05 Creatinine 1.01 mg/dL (0.55-1.02) 03/25/23 05:05 Est GFR (MDRD) Af Amer > 60 (>60) 03/25/23 05:05 Est GFR (MDRD) Non-Af 55 (>60) L 03/25/23 05:05 Glucose 113 mg/dL (65-99) H 03/25/23 05:05 POC Glucose (mg/dL) 147 mg/dL (65-99) H 03/25/23 11:16 Calcium 7.8 mg/dL (8.5-10.1) L 03/25/23 05:05 Corrected Calcium 8.8 mg/dL (8.5-10.1) 03/25/23 05:05 Magnesium 2.2 mg/dL (2.0-2.9) 03/25/23 05:05 Total Bilirubin 0.50 mg/dL (0.2-1.0) 03/25/23 05:05 AST 17 Units/L (15-37) 03/25/23 05:05 ALT 11 Units/L (12-78) L 03/25/23 05:05 Alkaline Phosphatase 99 Units/L (46-116) 03/25/23 05:05 Total Protein 5.5 g/dL (6.4-8.2) L 03/25/23 05:05 Albumin 2.7 g/dL (3.4-5.0) L 03/25/23 05:05 Globulin 2.8 g/dL (2.5-4.5) 03/25/23 05:05 Albumin/Globulin Ratio 1.0 Ratio (1.1-2.1) L 03/25/23 05:05 Specimen Type Clean catch urine 03/23/23 13:40 Urine Color Straw (YELLOW) 03/23/23 13:40 Urine Appearance Clear (CLEAR) 03/23/23 13:40 Urine pH 6.0 (5.0 - 8.0) 03/23/23 13:40 Ur Specific [place] 1.015 (1.000-1.030) 03/23/23 13:40 Urine Protein 2+ (NEGATIVE) 03/23/23 13:40 Urine Glucose (UA) Negative (NEGATIVE) 03/23/23 13:40 Urine Ketones Negative (NEGATIVE) 03/23/23 13:40 Urine Blood 3+ (NEGATIVE) 03/23/23 13:40 Urine Nitrite Negative (NEGATIVE) 03/23/23 13:40 Urine Bilirubin Negative (NEGATIVE) 03/23/23 13:40 Urine Urobilinogen Normal (NORMAL) 03/23/23 13:40 Ur Leukocyte Esterase Negative (NEGATIVE) 03/23/23 13:40 Urine RBC 3-5 /HPF (0-3) A 03/23/23 13:40 Urine WBC 0-2 /HPF (0-5) 03/23/23 13:40 Ur Squamous Epith Cells Rare /HPF (NEGATIVE) 03/23/23 13:40 Urine Bacteria Negative /HPF (NEGATIVE) 03/23/23 13:40 Urine Mucus Rare /HPF (NEGATIVE) 03/23/23 13:40 Ur Culture Indicated? No/not indicated 03/23/23 13:40 Plan (1) Lumbar back pain with radiculopathy affecting lower extremity: Status: Acute Narrative Support Text: PAIN CONTROL, BP CONTROL PHYSICAL THERAPY, REHAB PLACEMENT PPI THERAPY, NAUSEA CONTROL CT CHEST WITH CONTRAST DUE TO ABNORMAL CXR FINDINGS (2) Hyperlipidemia: Status: Chronic Qualifiers: Hyperlipidemia type: mixed hyperlipidemia Qualified Code(s): E78.2 - Mixed hyperlipidemia (3) Hypertension: Status: Chronic Qualifiers: Hypertension type: primary hypertension Qualified Code(s): I10 - Essential (primary) hypertension (4) Coronary artery disease: Status: Chronic Qualifiers: Coronary Disease-Associated Artery/Lesion type: [place] artery [place] vs. transplanted heart: [place] heart Associated angina: angina presence unspecified Qualified Code(s): I25.10 - Atherosclerotic heart disease of [place] coronary artery without angina pectoris (5) Diabetes: Status: Chronic Qualifiers: Diabetes mellitus type: type 2 Diabetes mellitus complication status: without complication Diabetes mellitus retail leasing agent insulin use: with custodial use Qualified Code(s): E11.9 - Type 2 diabetes mellitus without complications; Z79.4 - line installer repairer (current) use of insulin; Z79.4 - MCC (current) use of insulin; Z79.4 - line installer repairer (current) use of insulin; Z79.4 - line installer repairer (current) use of insulin (6) Abnormal chest x-ray: Status: Acute (7) GERD (gastroesophageal reflux disease): Status: Acute
[2023-03-25] MEDS: LIPITOR TAB 40 MG PO SCH (20:03)
[2023-03-26] MEDS: ZOFRAN INJ 4 MG VIAL IVP PRN ×4 (05:22→19:07)
[2023-03-26] MEDS: MORPHINE SULFATE INJ 2 MG INJ IVP PRN ×5 (05:22→22:10)
[2023-03-26 05:26] LABS: BASOPHILS % (AUTO) 0.4 % (0.2-1.0); EOSINOPHILS # (AUTO) 0.2 x10^3/uL (0.0-0.2); EOSINOPHILS % (AUTO) 2.4 % (0.9-2.9); HEMATOCRIT 33.1 % (36.0-47.0); HEMOGLOBIN 11.4 g/dL (12.0-16.0); LYMPHOCYTES # (AUTO) 1.8 X10^3/uL (1.3-2.9); MEAN CORPUSCULAR HEMOGLOBIN 29.3 pg (27.0-34.0); MEAN CORPUSCULAR HGB CONC 34.4 g/dL (33.0-35.0); MEAN CORPUSCULAR VOLUME 85.1 fL (80.0-100.0); MEAN PLATELET VOLUME 7.2 fL (7.4-11.0); MONOCYTES # (AUTO) 0.8 x10^3/uL (0.3-0.8); NEUTROPHILS # (AUTO) 4.3 x10^3/uL (2.2-4.8); NEUTROPHILS % (AUTO) 60.2 % (42.0-75.0); PLATELET COUNT 292 X10^3/uL (150.0-450.0); RED BLOOD COUNT 3.89 X10^6/uL (3.5-5.4); RED CELL DISTRIBUTION WIDTH 13.5 % (11.6-16.5); WHITE BLOOD COUNT 7.1 X10^3/uL (3.6-10.0)
[2023-03-26 05:39] LABS: ALANINE AMINOTRANSFERASE 8 Units/L (12-78); ALBUMIN 2.7 g/dL (3.4-5.0); ALKALINE PHOSPHATASE 104 Units/L (46-116); ASPARTATE AMINO TRANSFERASE 15 Units/L (15-37); BLOOD UREA NITROGEN 10 mg/dL (7-18); CALCIUM 7.8 mg/dL (8.5-10.1); CARBON DIOXIDE 31.4 mmol/L (21-32); CHLORIDE 100 mmol/L (98-107); COR CA(FOR HYPOALB) 8.8 mg/dL (8.5-10.1); COR NA(FOR HYPERGLY) 137 mmol/L (136-145); CREATININE 0.96 mg/dL (0.55-1.02); GLUCOSE 121 mg/dL (65-99); POTASSIUM 4.3 mmol/L (3.5-5.1); SODIUM 136 mmol/L (136-145); TOTAL PROTEIN 5.5 g/dL (6.4-8.2); eGFR NON BLACK RACES 58 (>60)
[2023-03-26] MEDS: CORDARONE TAB 200 MG PO SCH (08:54)
[2023-03-26] MEDS: SYNTHROID 50 mcg TAB PO SCH (08:54)
[2023-03-26] MEDS: COZAAR PO SCH (08:57)
[2023-03-26] MEDS: HYDROCHLOROTHIAZIDE 12.5 MG CAP PO SCH (08:57)
[2023-03-26] MEDS: NS + KCL 20 MEQ/L 1,000 ML IV SCH ×3 (09:02→21:07)
[2023-03-26] MEDS: MILK OF MAGNESIA PO SCH (09:02)
[2023-03-26] MEDS: NORVASC TAB 10 MG PO SCH (09:02)
[2023-03-26] MEDS: ROCEPHIN VIAL 1 GRAM 1 G in NS 100 ML IV 100 ML IV SCH (09:02)
[2023-03-26] MEDS ORDERED: SOLU-Medrol 40 MG VIAL ONE (12:32)
[2023-03-26] MEDS: LIPITOR TAB 40 MG PO SCH (20:04)
--- NOTE | 2023-03-26 21:35 | PCM.PROG ---
Progress Note Progress Note for Day of Date of Exam: 03/26/23 Subjective Subjective: PT IS 88WF, DIRECT ADMIT FROM DR MTZ'S PRACTICE WITH INTRACTABLE LOWER BACK PAIN AND WEAKNESS DUE TO DECREASED MOBILITY. PT HAD RECENT MRI WITH MULTI LEVEL DEGENERATIVE DISC AND SPINAL CANAL STENOSIS. PT REPORTS SHE HAS HAD INTERVENTIONS WITH SPINE BLOCKING, PAIN MANAGEMENT WITHOUT IMPROVEMENT. PT REPORT SHE LIVES ALONE AND HAS BEEN UNABLE TO PERFORM HER ADLS. PLAN TO DISCUSS OPTIONS FOR REHAB THERAPY AND PAIN CONTROL. PTS HOME MEDICATION HAS BEEN REVIEWED AND RESUMED. PT DENIES ANY RECENT FEVER OR FLU LIKE SYMPTOMS. PT HAD AN ABORNAL CHEST XRAY. PLAN TO OBTAIN A CT OF CHEST WITH CONTRAST. DISCUSSED THIS WITH PT AND HER FAMILY AT BEDSIDE. PT REPORTS INCREASED NAUSEA AND VOMITING R ECENTLY DUE TO PAIN AND PAIN MEDICATION INDUCED NAUSEA. Tuesday, 26 March 2023 This is a pleasant 88-year-old white female who was in the hospital for intractable lower back pain and hip pain. She has been receiving morphine sulfate 1 to 2 mg every 4 hours. She tells me that the pain medicine helps but it is wearing off and about half the time. Because of that I will change the interval down to 2 hours instead of 4 hours. I told her that it is as needed that she has to ask for when the pain is starts wearing off she will let the nurses know they can give it to her again. She understands that and she will ask the nurses when she starts hurting again. She is going to be going to [facility] on Tuesday which is 2 days from now for inpatient rehab. Currently this morning her vital signs are stable and she is satting 97% on room air. Her labs look good overall and her hemoglobin is 11.4 today. Her kidney function is excellent today with a BUN of 10 and creatinine of 0.96. Her white blood cell count is normal at 7100. We will repeat her routine labs again to morning and make no other changes except for the dosing interval of her morphine sulfate. Past Medical Family Social History Allergies: Allergies atorvastatin [From Lipitor] Allergy (Verified 08/04/22 20:23) codeine Allergy (Verified 08/04/22 20:23) Penicillins Allergy (Verified 08/04/22 20:23) ANY COUGH SYRUP Allergy (Uncoded 08/04/22 20:23) Review of Systems ROS: No change since H&P Vital Signs and I&O's Vital Signs: Vital Signs Temperature 99 F Temperature 97.5 F Pulse Rate [Left] 70 Pulse Rate [Left] 95 Respiratory Rate 20 Respiratory Rate 17 Respiratory Rate 20 Respiratory Rate 20 Respiratory Rate 20 Respiratory Rate 20 Blood Pressure [Right Arm] 129/58 Blood Pressure [Right Arm] 167/88 O2 Sat by Pulse Oximetry 97 O2 Sat by Pulse Oximetry 94 Intake and Output: Intake & Output 03/24/23 03/25/23 03/26/23 03/27/23 11:59 11:59 11:59 11:59 Intake Total 555 / 555 2621 / 2621 2379 / 2379 880 / 880 Output Total 0 / 0 Balance 555 / 555 2621 / 2621 2379 / 2379 880 / 880 Physical Exam Oriented: Normal Eyes: Normal Throat: Dry Respiratory: Diminished Cardiovascular: Normal Auscultation: Bowel Sounds: Normal Tenderness: Normal Skin: Normal Musculoskeletal: Back:Thoracic, Back:Lumbar and Back:Paraspinous Mood Description: Depressed Affect: Depressed Speech Pattern: Clear Laboratory and Diagnostics 03/26/23 04:50 03/26/23 04:50 Labs: Laboratory WBC 7.1 X10^3/uL (3.6-10.0) 03/26/23 04:50 RBC 3.89 X10^6/uL (3.5-5.4) 03/26/23 04:50 Hgb 11.4 g/dL (12.0-16.0) L 03/26/23 04:50 Hct 33.1 % (36.0-47.0) L 03/26/23 04:50 MCV 85.1 fL (80.0-100.0) 03/26/23 04:50 MCH 29.3 pg (27.0-34.0) 03/26/23 04:50 MCHC 34.4 g/dL (33.0-35.0) 03/26/23 04:50 RDW 13.5 % (11.6-16.5) 03/26/23 04:50 Plt Count 292 X10^3/uL (150.0-450.0) 03/26/23 04:50 MPV 7.2 fL (7.4-11.0) L 03/26/23 04:50 Neut % (Auto) 60.2 % (42.0-75.0) 03/26/23 04:50 Lymph % (Auto) 26.0 % (21.0-51.0) 03/26/23 04:50 [place] % (Auto) 11.0 % (0.0-13.0) 03/26/23 04:50 Eos % (Auto) 2.4 % (0.9-2.9) 03/26/23 04:50 Baso % (Auto) 0.4 % (0.2-1.0) 03/26/23 04:50 Neut # (Auto) 4.3 x10^3/uL (2.2-4.8) 03/26/23 04:50 Lymph # (Auto) 1.8 X10^3/uL (1.3-2.9) 03/26/23 04:50 [place] # (Auto) 0.8 x10^3/uL (0.3-0.8) 03/26/23 04:50 Eos # (Auto) 0.2 x10^3/uL (0.0-0.2) 03/26/23 04:50 Baso # (Auto) 0.0 X10^3/uL (0.0-0.1) 03/26/23 04:50 Absolute Nucleated RBC 0.0 /100WBC 03/26/23 04:50 Sodium 136 mmol/L (136-145) 03/26/23 04:50 Corrected Sodium 137 mmol/L (136-145) 03/26/23 04:50 Potassium 4.3 mmol/L (3.5-5.1) 03/26/23 04:50 Chloride 100 mmol/L (98-107) 03/26/23 04:50 Carbon Dioxide 31.4 mmol/L (21-32) 03/26/23 04:50 BUN 10 mg/dL (7-18) 03/26/23 04:50 Creatinine 0.96 mg/dL (0.55-1.02) 03/26/23 04:50 Est GFR (MDRD) Af Amer > 60 (>60) 03/26/23 04:50 Est GFR (MDRD) Non-Af 58 (>60) L 03/26/23 04:50 Glucose 121 mg/dL (65-99) H 03/26/23 04:50 POC Glucose (mg/dL) 177 mg/dL (65-99) H 03/26/23 20:10 Calcium 7.8 mg/dL (8.5-10.1) L 03/26/23 04:50 Corrected Calcium 8.8 mg/dL (8.5-10.1) 03/26/23 04:50 Magnesium 2.2 mg/dL (2.0-2.9) 03/25/23 05:05 Total Bilirubin 0.50 mg/dL (0.2-1.0) 03/26/23 04:50 AST 15 Units/L (15-37) 03/26/23 04:50 ALT 8 Units/L (12-78) L 03/26/23 04:50 Alkaline Phosphatase 104 Units/L (46-116) 03/26/23 04:50 Total Protein 5.5 g/dL (6.4-8.2) L 03/26/23 04:50 Albumin 2.7 g/dL (3.4-5.0) L 03/26/23 04:50 Globulin 2.8 g/dL (2.5-4.5) 03/26/23 04:50 Albumin/Globulin Ratio 1.0 Ratio (1.1-2.1) L 03/26/23 04:50 Specimen Type Clean catch urine 03/23/23 13:40 Urine Color Straw (YELLOW) 03/23/23 13:40 Urine Appearance Clear (CLEAR) 03/23/23 13:40 Urine pH 6.0 (5.0 - 8.0) 03/23/23 13:40 Ur Specific [place] [employer] 1.015 (1.000-1.030) 03/23/23 13:40 Urine Protein 2+ (NEGATIVE) 03/23/23 13:40 Urine Glucose (UA) Negative (NEGATIVE) 03/23/23 13:40 Urine Ketones Negative (NEGATIVE) 03/23/23 13:40 Urine Blood 3+ (NEGATIVE) 03/23/23 13:40 Urine Nitrite Negative (NEGATIVE) 03/23/23 13:40 Urine Bilirubin Negative (NEGATIVE) 03/23/23 13:40 Urine Urobilinogen Normal (NORMAL) 03/23/23 13:40 Ur Leukocyte Esterase Negative (NEGATIVE) 03/23/23 13:40 Urine RBC 3-5 /HPF (0-3) A 03/23/23 13:40 Urine WBC 0-2 /HPF (0-5) 03/23/23 13:40 Ur Squamous Epith Cells Rare /HPF (NEGATIVE) 03/23/23 13:40 Urine Bacteria Negative /HPF (NEGATIVE) 03/23/23 13:40 Urine Mucus Rare /HPF (NEGATIVE) 03/23/23 13:40 Ur Culture Indicated? No/not indicated 03/23/23 13:40 Plan (1) Lumbar back pain with radiculopathy affecting lower extremity: Status: Acute (2) Hyperlipidemia: Status: Chronic Qualifiers: Hyperlipidemia type: mixed hyperlipidemia Qualified Code(s): E78.2 - Mixed hyperlipidemia (3) Hypertension: Status: Chronic Qualifiers: Hypertension type: primary hypertension Qualified Code(s): I10 - Essential (primary) hypertension (4) Coronary artery disease: Status: Chronic Qualifiers: Coronary Disease-Associated Artery/Lesion type: [place] artery [place] vs. transplanted heart: [place] heart Associated angina: angina presence unspecified Qualified Code(s): I25.10 - Atherosclerotic heart disease of [place] coronary artery without angina pectoris (5) Diabetes: Status: Chronic Qualifiers: Diabetes mellitus type: type 2 Diabetes mellitus complication status: without complication Diabetes mellitus terminal worker insulin use: with residential use Qualified Code(s): E11.9 - Type 2 diabetes mellitus without complications; Z79.4 - [facility] (current) use of insulin; Z79.4 - ad terminal makeup operator (current) use of insulin; Z79.4 - [facility] (current) use of insulin; Z79.4 - ad terminal makeup operator (current) use of insulin (6) Abnormal chest x-ray: Status: Acute (7) GERD (gastroesophageal reflux disease): Status: Acute
[2023-03-27] MEDS: MORPHINE SULFATE INJ 2 MG INJ IVP PRN ×7 (05:06→21:51)
[2023-03-27] MEDS: ZOFRAN INJ 4 MG VIAL IVP PRN (05:06)
[2023-03-27 05:11] LABS: BASOPHILS % (AUTO) 0.7 % (0.2-1.0); EOSINOPHILS # (AUTO) 0.3 x10^3/uL (0.0-0.2); EOSINOPHILS % (AUTO) 4.1 % (0.9-2.9); HEMATOCRIT 32.2 % (36.0-47.0); HEMOGLOBIN 11.2 g/dL (12.0-16.0); LYMPHOCYTES # (AUTO) 1.8 X10^3/uL (1.3-2.9); MEAN CORPUSCULAR HEMOGLOBIN 29.8 pg (27.0-34.0); MEAN CORPUSCULAR HGB CONC 34.8 g/dL (33.0-35.0); MEAN CORPUSCULAR VOLUME 85.4 fL (80.0-100.0); MEAN PLATELET VOLUME 7.3 fL (7.4-11.0); MONOCYTES # (AUTO) 0.6 x10^3/uL (0.3-0.8); MONOCYTES % (AUTO) 9.2 % (0.0-13.0); NEUTROPHILS # (AUTO) 3.8 x10^3/uL (2.2-4.8); PLATELET COUNT 285 X10^3/uL (150.0-450.0); RED BLOOD COUNT 3.77 X10^6/uL (3.5-5.4); RED CELL DISTRIBUTION WIDTH 13.5 % (11.6-16.5); WHITE BLOOD COUNT 6.5 X10^3/uL (3.6-10.0)
[2023-03-27 05:27] LABS: ALANINE AMINOTRANSFERASE 10 Units/L (12-78); ALBUMIN 2.7 g/dL (3.4-5.0); ALKALINE PHOSPHATASE 103 Units/L (46-116); ASPARTATE AMINO TRANSFERASE 14 Units/L (15-37); BLOOD UREA NITROGEN 8 mg/dL (7-18); CALCIUM 7.9 mg/dL (8.5-10.1); CARBON DIOXIDE 31.7 mmol/L (21-32); CHLORIDE 101 mmol/L (98-107); COR CA(FOR HYPOALB) 8.9 mg/dL (8.5-10.1); COR NA(FOR HYPERGLY) 137 mmol/L (136-145); CREATININE 0.94 mg/dL (0.55-1.02); GLUCOSE 134 mg/dL (65-99); POTASSIUM 4.1 mmol/L (3.5-5.1); SODIUM 136 mmol/L (136-145); TOTAL PROTEIN 5.4 g/dL (6.4-8.2); eGFR NON BLACK RACES 60 (>60)
[2023-03-27] MEDS: CORDARONE TAB 200 MG PO SCH (08:41)
[2023-03-27] MEDS: ROCEPHIN VIAL 1 GRAM 1 G in NS 100 ML IV 100 ML IV SCH (08:41)
[2023-03-27] MEDS: SYNTHROID 50 mcg TAB PO SCH (08:41)
[2023-03-27] MEDS: NORVASC TAB 10 MG PO SCH (08:41)
[2023-03-27] MEDS: COZAAR PO SCH (08:41)
[2023-03-27] MEDS: HYDROCHLOROTHIAZIDE 12.5 MG CAP PO SCH (08:41)
[2023-03-27] MEDS: MILK OF MAGNESIA PO SCH (08:57)
[2023-03-27] MEDS: NS + KCL 20 MEQ/L 1,000 ML IV SCH ×3 (11:43→23:21)
[2023-03-27 16:04] LABS: BASOPHILS % (AUTO) 0.6 % (0.2-1.0); EOSINOPHILS # (AUTO) 0.2 x10^3/uL (0.0-0.2); EOSINOPHILS % (AUTO) 2.6 % (0.9-2.9); HEMATOCRIT 35.2 % (36.0-47.0); HEMOGLOBIN 12.1 g/dL (12.0-16.0); LYMPHOCYTES # (AUTO) 1.8 X10^3/uL (1.3-2.9); LYMPHOCYTES % (AUTO) 22.6 % (21.0-51.0); MEAN CORPUSCULAR HEMOGLOBIN 29.3 pg (27.0-34.0); MEAN CORPUSCULAR HGB CONC 34.3 g/dL (33.0-35.0); MEAN CORPUSCULAR VOLUME 85.6 fL (80.0-100.0); MEAN PLATELET VOLUME 7.1 fL (7.4-11.0); MONOCYTES # (AUTO) 0.7 x10^3/uL (0.3-0.8); MONOCYTES % (AUTO) 8.4 % (0.0-13.0); NEUTROPHILS # (AUTO) 5.3 x10^3/uL (2.2-4.8); NEUTROPHILS % (AUTO) 65.8 % (42.0-75.0); PLATELET COUNT 298 X10^3/uL (150.0-450.0); RED BLOOD COUNT 4.11 X10^6/uL (3.5-5.4); RED CELL DISTRIBUTION WIDTH 13.5 % (11.6-16.5); WHITE BLOOD COUNT 8.1 X10^3/uL (3.6-10.0)
[2023-03-27 16:15] LABS: ALANINE AMINOTRANSFERASE 11 Units/L (12-78); ALBUMIN 2.7 g/dL (3.4-5.0); ALKALINE PHOSPHATASE 109 Units/L (46-116); ASPARTATE AMINO TRANSFERASE 14 Units/L (15-37); BLOOD UREA NITROGEN 8 mg/dL (7-18); CALCIUM 7.8 mg/dL (8.5-10.1); CARBON DIOXIDE 29.1 mmol/L (21-32); CHLORIDE 101 mmol/L (98-107); COR CA(FOR HYPOALB) 8.8 mg/dL (8.5-10.1); COR NA(FOR HYPERGLY) 137 mmol/L (136-145); CREATININE 1.07 mg/dL (0.55-1.02); GLUCOSE 162 mg/dL (65-99); POTASSIUM 4.2 mmol/L (3.5-5.1); SODIUM 136 mmol/L (136-145); TOTAL PROTEIN 5.6 g/dL (6.4-8.2); eGFR NON BLACK RACES 51 (>60)
--- NOTE | 2023-03-27 17:31 | PCM.PROG ---
Progress Note Progress Note for Day of Date of Exam: 03/27/23 Subjective Subjective: PT IS 88WF, DIRECT ADMIT FROM DR MTZ'S PRACTICE WITH INTRACTABLE LOWER BACK PAIN AND WEAKNESS DUE TO DECREASED MOBILITY. PT HAD RECENT MRI WITH MULTI LEVEL DEGENERATIVE DISC AND SPINAL CANAL STENOSIS. PT REPORTS SHE HAS HAD INTERVENTIONS WITH SPINE BLOCKING, PAIN MANAGEMENT WITHOUT IMPROVEMENT. PT REPORT SHE LIVES ALONE AND HAS BEEN UNABLE TO PERFORM HER ADLS. PLAN TO DISCUSS OPTIONS FOR REHAB THERAPY AND PAIN CONTROL. PTS HOME MEDICATION HAS BEEN REVIEWED AND RESUMED. PT DENIES ANY RECENT FEVER OR FLU LIKE SYMPTOMS. PT HAD AN ABORNAL CHEST XRAY. PLAN TO OBTAIN A CT OF CHEST WITH CONTRAST. DISCUSSED THIS WITH PT AND HER FAMILY AT BEDSIDE. PT REPORTS INCREASED NAUSEA AND VOMITING R ECENTLY DUE TO PAIN AND PAIN MEDICATION INDUCED NAUSEA. Tuesday, 26 March 2023 This is a pleasant 88-year-old white female who was in the hospital for intractable lower back pain and hip pain. She has been receiving morphine sulfate 1 to 2 mg every 4 hours. She tells me that the pain medicine helps but it is wearing off and about half the time. Because of that I will change the interval down to 2 hours instead of 4 hours. I told her that it is as needed that she has to ask for when the pain is starts wearing off she will let the nurses know they can give it to her again. She understands that and she will ask the nurses when she starts hurting again. She is going to be going to [facility] on Tuesday which is 2 days from now for inpatient rehab. Currently this morning her vital signs are stable and she is satting 97% on room air. Her labs look good overall and her hemoglobin is 11.4 today. Her kidney function is excellent today with a BUN of 10 and creatinine of 0.96. Her white blood cell count is normal at 7100. We will repeat her routine labs again to morning and make no other changes except for the dosing interval of her morphine sulfate. Tuesday Patient is doing well this morning with no new complaints. She reports her pain is controlled at this time. The nurses tell me that she has not been asking for her pain medicine anymore than she had previously been after we increase the interval to every 2 hours from every 4 hours yesterday. Her mind seems good again today and she is in a pleasant demeanor and has no new concerns at this time. Past Medical Family Social History Allergies: Allergies atorvastatin [From Lipitor] Allergy (Verified 08/04/22 20:23) codeine Allergy (Verified 08/04/22 20:23) Penicillins Allergy (Verified 08/04/22 20:23) ANY COUGH SYRUP Allergy (Uncoded 08/04/22 20:23) Review of Systems ROS: No change since H&P Vital Signs and I&O's Vital Signs: Vital Signs Temperature 98.4 F Temperature 98.4 F Pulse Rate [Left] 71 Pulse Rate [Left] 71 Respiratory Rate 18 Respiratory Rate 20 Respiratory Rate 18 Respiratory Rate 18 Respiratory Rate 20 Respiratory Rate 20 Respiratory Rate 18 Blood Pressure [Right Arm] 162/70 Blood Pressure [Right Arm] 156/68 O2 Sat by Pulse Oximetry 97 O2 Sat by Pulse Oximetry 96 Intake and Output: Intake & Output 03/25/23 03/26/23 03/27/23 03/28/23 11:59 11:59 11:59 11:59 Intake Total 2621 / 2621 2379 / 2379 2330 / 2330 1024 / 1024 Balance 2621 / 2621 2379 / 2379 2330 / 2330 1024 / 1024 Physical Exam Oriented: Normal Eyes: Normal Throat: Dry Respiratory: Diminished Cardiovascular: Normal Auscultation: Bowel Sounds: Normal Tenderness: Normal Skin: Normal Musculoskeletal: Back:Thoracic, Back:Lumbar and Back:Paraspinous Mood Description: Depressed Affect: Depressed Speech Pattern: Clear Laboratory and Diagnostics 03/27/23 15:53 03/27/23 15:53 Labs: Laboratory WBC 8.1 X10^3/uL (3.6-10.0) 03/27/23 15:53 RBC 4.11 X10^6/uL (3.5-5.4) 03/27/23 15:53 Hgb 12.1 g/dL (12.0-16.0) 03/27/23 15:53 Hct 35.2 % (36.0-47.0) L 03/27/23 15:53 MCV 85.6 fL (80.0-100.0) 03/27/23 15:53 MCH 29.3 pg (27.0-34.0) 03/27/23 15:53 MCHC 34.3 g/dL (33.0-35.0) 03/27/23 15:53 RDW 13.5 % (11.6-16.5) 03/27/23 15:53 Plt Count 298 X10^3/uL (150.0-450.0) 03/27/23 15:53 MPV 7.1 fL (7.4-11.0) L 03/27/23 15:53 Neut % (Auto) 65.8 % (42.0-75.0) 03/27/23 15:53 Lymph % (Auto) 22.6 % (21.0-51.0) 03/27/23 15:53 [place] % (Auto) 8.4 % (0.0-13.0) 03/27/23 15:53 Eos % (Auto) 2.6 % (0.9-2.9) 03/27/23 15:53 Baso % (Auto) 0.6 % (0.2-1.0) 03/27/23 15:53 Neut # (Auto) 5.3 x10^3/uL (2.2-4.8) H 03/27/23 15:53 Lymph # (Auto) 1.8 X10^3/uL (1.3-2.9) 03/27/23 15:53 [place] # (Auto) 0.7 x10^3/uL (0.3-0.8) 03/27/23 15:53 Eos # (Auto) 0.2 x10^3/uL (0.0-0.2) 03/27/23 15:53 Baso # (Auto) 0.0 X10^3/uL (0.0-0.1) 03/27/23 15:53 Absolute Nucleated RBC 0.0 /100WBC 03/27/23 15:53 Sodium 136 mmol/L (136-145) 03/27/23 15:53 Corrected Sodium 137 mmol/L (136-145) 03/27/23 15:53 Potassium 4.2 mmol/L (3.5-5.1) 03/27/23 15:53 Chloride 101 mmol/L (98-107) 03/27/23 15:53 Carbon Dioxide 29.1 mmol/L (21-32) 03/27/23 15:53 BUN 8 mg/dL (7-18) 03/27/23 15:53 Creatinine 1.07 mg/dL (0.55-1.02) H 03/27/23 15:53 Est GFR (MDRD) Af Amer > 60 (>60) 03/27/23 15:53 Est GFR (MDRD) Non-Af 51 (>60) L 03/27/23 15:53 Glucose 162 mg/dL (65-99) H 03/27/23 15:53 POC Glucose (mg/dL) 171 mg/dL (65-99) H 03/27/23 16:03 Calcium 7.8 mg/dL (8.5-10.1) L 03/27/23 15:53 Corrected Calcium 8.8 mg/dL (8.5-10.1) 03/27/23 15:53 Magnesium 2.2 mg/dL (2.0-2.9) 03/25/23 05:05 Total Bilirubin 0.40 mg/dL (0.2-1.0) 03/27/23 15:53 AST 14 Units/L (15-37) L 03/27/23 15:53 ALT 11 Units/L (12-78) L 03/27/23 15:53 Alkaline Phosphatase 109 Units/L (46-116) 03/27/23 15:53 Total Protein 5.6 g/dL (6.4-8.2) L 03/27/23 15:53 Albumin 2.7 g/dL (3.4-5.0) L 03/27/23 15:53 Globulin 2.9 g/dL (2.5-4.5) 03/27/23 15:53 Albumin/Globulin Ratio 0.9 Ratio (1.1-2.1) L 03/27/23 15:53 Specimen Type Clean catch urine 03/23/23 13:40 Urine Color Straw (YELLOW) 03/23/23 13:40 Urine Appearance Clear (CLEAR) 03/23/23 13:40 Urine pH 6.0 (5.0 - 8.0) 03/23/23 13:40 Ur Specific [place] 1.015 (1.000-1.030) 03/23/23 13:40 Urine Protein 2+ (NEGATIVE) 03/23/23 13:40 Urine Glucose (UA) Negative (NEGATIVE) 03/23/23 13:40 Urine Ketones Negative (NEGATIVE) 03/23/23 13:40 Urine Blood 3+ (NEGATIVE) 03/23/23 13:40 Urine Nitrite Negative (NEGATIVE) 03/23/23 13:40 Urine Bilirubin Negative (NEGATIVE) 03/23/23 13:40 Urine Urobilinogen Normal (NORMAL) 03/23/23 13:40 Ur Leukocyte Esterase Negative (NEGATIVE) 03/23/23 13:40 Urine RBC 3-5 /HPF (0-3) A 03/23/23 13:40 Urine WBC 0-2 /HPF (0-5) 03/23/23 13:40 Ur Squamous Epith Cells Rare /HPF (NEGATIVE) 03/23/23 13:40 Urine Bacteria Negative /HPF (NEGATIVE) 03/23/23 13:40 Urine Mucus Rare /HPF (NEGATIVE) 03/23/23 13:40 Ur Culture Indicated? No/not indicated 03/23/23 13:40 Plan (1) Lumbar back pain with radiculopathy affecting lower extremity: Status: Acute (2) Hyperlipidemia: Status: Chronic Qualifiers: Hyperlipidemia type: mixed hyperlipidemia Qualified Code(s): E78.2 - Mixed hyperlipidemia (3) Hypertension: Status: Chronic Qualifiers: Hypertension type: primary hypertension Qualified Code(s): I10 - Essential (primary) hypertension (4) Coronary artery disease: Status: Chronic Qualifiers: Associated angina: angina presence unspecified Coronary Disease- Associated Artery/Lesion type: [place] artery [place] vs. transplanted heart: [place] heart Qualified Code(s): I25.10 - Atherosclerotic heart disease of [place] coronary artery without angina pectoris (5) Diabetes: Status: Chronic Qualifiers: Diabetes mellitus complication status: without complication Diabetes mellitus terminal gauger insulin use: with chcf use Diabetes mellitus type: type 2 Qualified Code(s): E11.9 - Type 2 diabetes mellitus without complications; Z79.4 - [employer]erman (current) use of insulin; Z79.4 - [employer]erman (current) use of insulin; Z79.4 - lobsterman (current) use of insulin; Z79.4 - lobsterman (current) use of insulin (6) Abnormal chest x-ray: Status: Acute (7) GERD (gastroesophageal reflux disease): Status: Acute
[2023-03-27] MEDS ORDERED: GLUCOPHAGE ONE (20:11)
[2023-03-27] MEDS: GLUCOPHAGE PO SCH (20:35)
[2023-03-27] MEDS: LIPITOR TAB 40 MG PO SCH (20:35)
[2023-03-28] MEDS: MORPHINE SULFATE INJ 2 MG INJ IVP PRN ×3 (00:20→18:48)
[2023-03-28 05:37] LABS: BASOPHILS % (AUTO) 0.7 % (0.2-1.0); EOSINOPHILS # (AUTO) 0.3 x10^3/uL (0.0-0.2); EOSINOPHILS % (AUTO) 3.9 % (0.9-2.9); HEMOGLOBIN 10.9 g/dL (12.0-16.0); LYMPHOCYTES # (AUTO) 1.9 X10^3/uL (1.3-2.9); LYMPHOCYTES % (AUTO) 27.6 % (21.0-51.0); MEAN CORPUSCULAR HEMOGLOBIN 29.3 pg (27.0-34.0); MEAN CORPUSCULAR HGB CONC 34.1 g/dL (33.0-35.0); MEAN PLATELET VOLUME 7.4 fL (7.4-11.0); MONOCYTES # (AUTO) 0.7 x10^3/uL (0.3-0.8); MONOCYTES % (AUTO) 10.2 % (0.0-13.0); NEUTROPHILS # (AUTO) 3.9 x10^3/uL (2.2-4.8); NEUTROPHILS % (AUTO) 57.6 % (42.0-75.0); PLATELET COUNT 274 X10^3/uL (150.0-450.0); RED BLOOD COUNT 3.72 X10^6/uL (3.5-5.4); RED CELL DISTRIBUTION WIDTH 13.6 % (11.6-16.5); WHITE BLOOD COUNT 6.8 X10^3/uL (3.6-10.0)
[2023-03-28] MEDS: NS + KCL 20 MEQ/L 1,000 ML IV SCH ×2 (05:38→14:12)
[2023-03-28 05:50] LABS: ALANINE AMINOTRANSFERASE 9 Units/L (12-78); ALBUMIN 2.5 g/dL (3.4-5.0); ALKALINE PHOSPHATASE 96 Units/L (46-116); ASPARTATE AMINO TRANSFERASE 13 Units/L (15-37); BLOOD UREA NITROGEN 8 mg/dL (7-18); CALCIUM 7.8 mg/dL (8.5-10.1); CARBON DIOXIDE 31.2 mmol/L (21-32); CHLORIDE 102 mmol/L (98-107); COR NA(FOR HYPERGLY) 139 mmol/L (136-145); CREATININE 0.99 mg/dL (0.55-1.02); GLUCOSE 129 mg/dL (65-99); POTASSIUM 4.1 mmol/L (3.5-5.1); SODIUM 138 mmol/L (136-145); TOTAL PROTEIN 5.2 g/dL (6.4-8.2); eGFR NON BLACK RACES 56 (>60)
[2023-03-28] MEDS: ROCEPHIN VIAL 1 GRAM 1 G in NS 100 ML IV 100 ML IV SCH (08:31)
[2023-03-28] MEDS: SYNTHROID 50 mcg TAB PO SCH (08:33)
[2023-03-28] MEDS: HYDROCHLOROTHIAZIDE 12.5 MG CAP PO SCH (08:33)
[2023-03-28] MEDS: MILK OF MAGNESIA PO SCH (08:33)
[2023-03-28] MEDS: NORVASC TAB 10 MG PO SCH (08:33)
[2023-03-28] MEDS: COZAAR PO SCH (08:33)
[2023-03-28] MEDS: CORDARONE TAB 200 MG PO SCH (10:59)
[2023-03-28] MEDS: VITAMIN D3 125 mcg (5,000 UNITS) PO SCH (11:00)
[2023-03-28] MEDS: ULTRAM PO PRN ×2 (15:14→23:05)
[2023-03-28] MEDS ORDERED: GLUCOPHAGE ONE (20:17)
[2023-03-28] MEDS: LIPITOR TAB 40 MG PO SCH (20:24)
[2023-03-28] MEDS: GLUCOPHAGE PO SCH (20:24)
[2023-03-29] MEDS: NS + KCL 20 MEQ/L 1,000 ML IV SCH (02:09)
[2023-03-29] MEDS: ZOFRAN INJ 4 MG VIAL IVP PRN ×2 (02:56→12:06)
[2023-03-29] MEDS: MORPHINE SULFATE INJ 2 MG INJ IVP PRN ×3 (02:58→14:21)
[2023-03-29 05:13] LABS: BASOPHILS % (AUTO) 0.7 % (0.2-1.0); EOSINOPHILS # (AUTO) 0.2 x10^3/uL (0.0-0.2); EOSINOPHILS % (AUTO) 3.4 % (0.9-2.9); HEMATOCRIT 32.6 % (36.0-47.0); HEMOGLOBIN 11.2 g/dL (12.0-16.0); LYMPHOCYTES # (AUTO) 1.5 X10^3/uL (1.3-2.9); LYMPHOCYTES % (AUTO) 21.2 % (21.0-51.0); MEAN CORPUSCULAR HEMOGLOBIN 29.4 pg (27.0-34.0); MEAN CORPUSCULAR HGB CONC 34.3 g/dL (33.0-35.0); MEAN CORPUSCULAR VOLUME 85.6 fL (80.0-100.0); MEAN PLATELET VOLUME 7.4 fL (7.4-11.0); MONOCYTES # (AUTO) 0.8 x10^3/uL (0.3-0.8); MONOCYTES % (AUTO) 11.2 % (0.0-13.0); NEUTROPHILS # (AUTO) 4.6 x10^3/uL (2.2-4.8); NEUTROPHILS % (AUTO) 63.5 % (42.0-75.0); PLATELET COUNT 264 X10^3/uL (150.0-450.0); RED BLOOD COUNT 3.81 X10^6/uL (3.5-5.4); RED CELL DISTRIBUTION WIDTH 13.7 % (11.6-16.5); WHITE BLOOD COUNT 7.3 X10^3/uL (3.6-10.0)
[2023-03-29 05:27] LABS: ALANINE AMINOTRANSFERASE 11 Units/L (12-78); ALBUMIN 2.6 g/dL (3.4-5.0); ALKALINE PHOSPHATASE 101 Units/L (46-116); ASPARTATE AMINO TRANSFERASE 13 Units/L (15-37); BLOOD UREA NITROGEN 8 mg/dL (7-18); CALCIUM 7.9 mg/dL (8.5-10.1); CARBON DIOXIDE 29.8 mmol/L (21-32); CHLORIDE 101 mmol/L (98-107); COR NA(FOR HYPERGLY) 136 mmol/L (136-145); CREATININE 0.91 mg/dL (0.55-1.02); GLUCOSE 119 mg/dL (65-99); POTASSIUM 3.8 mmol/L (3.5-5.1); SODIUM 136 mmol/L (136-145); TOTAL PROTEIN 5.4 g/dL (6.4-8.2); eGFR NON BLACK RACES > 60 (>60)
[2023-03-29] MEDS ORDERED: CONSULT PHARMACY - POTASSIUM & MAGNESIUM XX SCH ×2 (06:00→07:00)
[2023-03-29] MEDS ORDERED: K-DUR TAB 20 MEQ PO SCH (06:00)
[2023-03-29] MEDS: NORVASC TAB 10 MG PO SCH (09:29)
[2023-03-29] MEDS: SYNTHROID 50 mcg TAB PO SCH (09:30)
[2023-03-29] MEDS: COZAAR PO SCH (09:31)
[2023-03-29] MEDS: VITAMIN D3 125 mcg (5,000 UNITS) PO SCH (09:31)
[2023-03-29] MEDS: HYDROCHLOROTHIAZIDE 12.5 MG CAP PO SCH (09:31)
[2023-03-29] MEDS: CORDARONE TAB 200 MG PO SCH (09:32)
[2023-03-29] MEDS: ROCEPHIN VIAL 1 GRAM 1 G in NS 100 ML IV 100 ML IV SCH (09:33)
[2023-03-29] MEDS: MILK OF MAGNESIA PO SCH (09:33)
[2023-03-29] MEDS: LOVENOX INJ 40 MG SYR SC SCH (09:34)
[2023-03-29] MEDS ORDERED: MAGNESIUM SULFATE 50% INJ VIAL ONE (10:10)
[2023-03-29] MEDS: NS + KCL 40 MEQ/L 1,000 ML with MAGNESIUM SULFATE 50% INJ VIAL 1 G IV SCH ×4 (10:27→10:28)
[2023-03-29] MEDS: NEURONTIN CAP 100 MG PO SCH ×2 (11:08→20:43)
--- NOTE | 2023-03-29 18:13 | PCM.PROG ---
Progress Note Progress Note for Day of Date of Exam: 03/29/23 Subjective Subjective: Mrs. Mccracken is a pleasant 88-year-old white female who is a patient of Dr. Quinteros admitted with intractable lower back pain after she had an abnormal chest x-ray. We obtained a CT of the chest and it revealed a T-spine compression fracture which is age undetermined. The patient states that she has been having significant back pain. She has been on IV opioid pain control with morphine. The patient states that she is very sensitive to pain medication and has nausea. We are going to try tramadol 50 mg to wean her off of IV pain control and if that is not controlling her, we will advance to hydrocodone. Plan to add low dose gabapentin for neuropathic pain control The patient has had increased weakness due to back pain, which has pretty much had her in a sedentary lifestyle the last few weeks. We have discussed physical therapy to help with rehab, as well as she will need evaluation from orthopedics for T- spine compression fracture. We are going to try her with a soft abdominal binder today with support. The patient does not feel like she can tolerate anything stiff, like a turtle shell brace for her T-spine. Also, she has been continued on her home medications. Pt has pending approval for [place] [facility], plan for dc tomorrow if pain is controlled. Past Medical Family Social History Allergies: Allergies atorvastatin [From Lipitor] Allergy (Verified 08/04/22 20:23) codeine Allergy (Verified 08/04/22 20:23) Penicillins Allergy (Verified 08/04/22 20:23) ANY COUGH SYRUP Allergy (Uncoded 08/04/22 20:23) Review of Systems ROS: No change since H&P Vital Signs and I&O's Vital Signs: Vital Signs Temperature 98.5 F Temperature 97.5 F Pulse Rate [Left] 70 Pulse Rate [Left] 85 Respiratory Rate 20 Respiratory Rate 18 Respiratory Rate 18 Respiratory Rate 18 Respiratory Rate 18 Respiratory Rate 18 Blood Pressure [Left Arm] 119/57 Blood Pressure [Left Arm] 169/75 O2 Sat by Pulse Oximetry 96 O2 Sat by Pulse Oximetry 96 Intake and Output: Intake & Output 03/27/23 03/28/23 03/29/23 03/30/23 11:59 11:59 11:59 11:59 Intake Total 2330 / 2330 1892 / 1892 1017 / 1017 1261 / 1261 Output Total 0 / 0 Balance 2329 / 2329 1017 / 1017 1261 / 1261 Physical Exam Oriented: Normal Eyes: Normal Throat: Dry Respiratory: Diminished Cardiovascular: Normal Auscultation: Bowel Sounds: Normal Tenderness: Normal Skin: Normal Musculoskeletal: Back:Thoracic, Back:Lumbar and Back:Paraspinous Mood Description: Depressed Affect: Depressed Speech Pattern: Clear and Appropriate Laboratory and Diagnostics 03/29/23 04:32 03/29/23 04:32 Labs: Laboratory WBC 7.3 X10^3/uL (3.6-10.0) 03/29/23 04:32 RBC 3.81 X10^6/uL (3.5-5.4) 03/29/23 04:32 Hgb 11.2 g/dL (12.0-16.0) L 03/29/23 04:32 Hct 32.6 % (36.0-47.0) L 03/29/23 04:32 MCV 85.6 fL (80.0-100.0) 03/29/23 04:32 MCH 29.4 pg (27.0-34.0) 03/29/23 04:32 MCHC 34.3 g/dL (33.0-35.0) 03/29/23 04:32 RDW 13.7 % (11.6-16.5) 03/29/23 04:32 Plt Count 264 X10^3/uL (150.0-450.0) 03/29/23 04:32 MPV 7.4 fL (7.4-11.0) 03/29/23 04:32 Neut % (Auto) 63.5 % (42.0-75.0) 03/29/23 04:32 Lymph % (Auto) 21.2 % (21.0-51.0) 03/29/23 04:32 [place] % (Auto) 11.2 % (0.0-13.0) 03/29/23 04:32 Eos % (Auto) 3.4 % (0.9-2.9) H 03/29/23 04:32 Baso % (Auto) 0.7 % (0.2-1.0) 03/29/23 04:32 Neut # (Auto) 4.6 x10^3/uL (2.2-4.8) 03/29/23 04:32 Lymph # (Auto) 1.5 X10^3/uL (1.3-2.9) 03/29/23 04:32 [place] # (Auto) 0.8 x10^3/uL (0.3-0.8) 03/29/23 04:32 Eos # (Auto) 0.2 x10^3/uL (0.0-0.2) 03/29/23 04:32 Baso # (Auto) 0.0 X10^3/uL (0.0-0.1) 03/29/23 04:32 Absolute Nucleated RBC 0.1 /100WBC 03/29/23 04:32 Sodium 136 mmol/L (136-145) 03/29/23 04:32 Corrected Sodium 136 mmol/L (136-145) 03/29/23 04:32 Potassium 3.8 mmol/L (3.5-5.1) 03/29/23 04:32 Chloride 101 mmol/L (98-107) 03/29/23 04:32 Carbon Dioxide 29.8 mmol/L (21-32) 03/29/23 04:32 BUN 8 mg/dL (7-18) 03/29/23 04:32 Creatinine 0.91 mg/dL (0.55-1.02) 03/29/23 04:32 Est GFR (MDRD) Af Amer > 60 (>60) 03/29/23 04:32 Est GFR (MDRD) Non-Af > 60 (>60) 03/29/23 04:32 Glucose 119 mg/dL (65-99) H 03/29/23 04:32 POC Glucose (mg/dL) 160 mg/dL (65-99) H 03/29/23 16:20 Calcium 7.9 mg/dL (8.5-10.1) L 03/29/23 04:32 Corrected Calcium 9.0 mg/dL (8.5-10.1) 03/29/23 04:32 Magnesium 1.8 mg/dL (2.0-2.9) L 03/29/23 04:32 Total Bilirubin 0.40 mg/dL (0.2-1.0) 03/29/23 04:32 AST 13 Units/L (15-37) L 03/29/23 04:32 ALT 11 Units/L (12-78) L 03/29/23 04:32 Alkaline Phosphatase 101 Units/L (46-116) 03/29/23 04:32 Total Protein 5.4 g/dL (6.4-8.2) L 03/29/23 04:32 Albumin 2.6 g/dL (3.4-5.0) L 03/29/23 04:32 Globulin 2.8 g/dL (2.5-4.5) 03/29/23 04:32 Albumin/Globulin Ratio 0.9 Ratio (1.1-2.1) L 03/29/23 04:32 TSH 3rd Generation 4.508 uIU/mL (0.358-3.74) H 03/28/23 04:45 Specimen Type Clean catch urine 03/23/23 13:40 Urine Color Straw (YELLOW) 03/23/23 13:40 Urine Appearance Clear (CLEAR) 03/23/23 13:40 Urine pH 6.0 (5.0 - 8.0) 03/23/23 13:40 Ur Specific [place] 1.015 (1.000-1.030) 03/23/23 13:40 Urine Protein 2+ (NEGATIVE) 03/23/23 13:40 Urine Glucose (UA) Negative (NEGATIVE) 03/23/23 13:40 Urine Ketones Negative (NEGATIVE) 03/23/23 13:40 Urine Blood 3+ (NEGATIVE) 03/23/23 13:40 Urine Nitrite Negative (NEGATIVE) 03/23/23 13:40 Urine Bilirubin Negative (NEGATIVE) 03/23/23 13:40 Urine Urobilinogen Normal (NORMAL) 03/23/23 13:40 Ur Leukocyte Esterase Negative (NEGATIVE) 03/23/23 13:40 Urine RBC 3-5 /HPF (0-3) A 03/23/23 13:40 Urine WBC 0-2 /HPF (0-5) 03/23/23 13:40 Ur Squamous Epith Cells Rare /HPF (NEGATIVE) 03/23/23 13:40 Urine Bacteria Negative /HPF (NEGATIVE) 03/23/23 13:40 Urine Mucus Rare /HPF (NEGATIVE) 03/23/23 13:40 Ur Culture Indicated? No/not indicated 03/23/23 13:40 Plan (1) Lumbar back pain with radiculopathy affecting lower extremity: Status: Acute Narrative Support Text: pt, pain control bs and bp control bowel regimen rehab placement (2) Hyperlipidemia: Status: Chronic Qualifiers: Hyperlipidemia type: mixed hyperlipidemia Qualified Code(s): E78.2 - Mixed hyperlipidemia (3) Hypertension: Status: Chronic Qualifiers: Hypertension type: primary hypertension Qualified Code(s): I10 - Essential (primary) hypertension (4) Coronary artery disease: Status: Chronic Qualifiers: Coronary Disease-Associated Artery/Lesion type: [place] artery [place] vs. transplanted heart: [place] heart Associated angina: angina presence unspecified Qualified Code(s): I25.10 - Atherosclerotic heart disease of [place] coronary artery without angina pectoris (5) Diabetes: Status: Chronic Qualifiers: Diabetes mellitus type: type 2 Diabetes mellitus complication status: without complication Diabetes mellitus half-way insulin use: with half-way use Qualified Code(s): E11.9 - Type 2 diabetes mellitus without complications; Z79.4 - watermelon inspector (current) use of insulin; Z79.4 - alf (current) use of insulin; Z79.4 - watermelon inspector (current) use of insulin; Z79.4 - watermelon inspector (current) use of insulin (6) Abnormal chest x-ray: Status: Acute (7) GERD (gastroesophageal reflux disease): Status: Acute
[2023-03-29] MEDS ORDERED: GLUCOPHAGE ONE (20:30)
[2023-03-29] MEDS: LIPITOR TAB 40 MG PO SCH (20:43)
[2023-03-29] MEDS: GLUCOPHAGE PO SCH (20:43)
[2023-03-29] MEDS: ULTRAM PO PRN (20:46)
[2023-03-29] MEDS ORDERED: NORCO 5/325 MG TAB PO PRN (22:28)
[2023-03-30] MEDS: NS + KCL 40 MEQ/L 1,000 ML with MAGNESIUM SULFATE 50% INJ VIAL 1 G IV SCH ×2 (05:14)
[2023-03-30 05:30] LABS: BASOPHILS % (AUTO) 0.2 % (0.2-1.0); EOSINOPHILS # (AUTO) 0.2 x10^3/uL (0.0-0.2); EOSINOPHILS % (AUTO) 2.3 % (0.9-2.9); HEMATOCRIT 31.8 % (36.0-47.0); LYMPHOCYTES # (AUTO) 1.4 X10^3/uL (1.3-2.9); LYMPHOCYTES % (AUTO) 16.5 % (21.0-51.0); MEAN CORPUSCULAR HEMOGLOBIN 29.7 pg (27.0-34.0); MEAN CORPUSCULAR HGB CONC 34.7 g/dL (33.0-35.0); MEAN CORPUSCULAR VOLUME 85.6 fL (80.0-100.0); MEAN PLATELET VOLUME 7.4 fL (7.4-11.0); MONOCYTES # (AUTO) 0.7 x10^3/uL (0.3-0.8); MONOCYTES % (AUTO) 8.6 % (0.0-13.0); NEUTROPHILS % (AUTO) 72.4 % (42.0-75.0); PLATELET COUNT 282 X10^3/uL (150.0-450.0); RED BLOOD COUNT 3.71 X10^6/uL (3.5-5.4); RED CELL DISTRIBUTION WIDTH 13.7 % (11.6-16.5); WHITE BLOOD COUNT 8.3 X10^3/uL (3.6-10.0)
[2023-03-30 05:41] LABS: ALANINE AMINOTRANSFERASE 10 Units/L (12-78); ALBUMIN 2.5 g/dL (3.4-5.0); ALKALINE PHOSPHATASE 101 Units/L (46-116); ASPARTATE AMINO TRANSFERASE 14 Units/L (15-37); BLOOD UREA NITROGEN 7 mg/dL (7-18); CALCIUM 7.8 mg/dL (8.5-10.1); CARBON DIOXIDE 28.4 mmol/L (21-32); CHLORIDE 97 mmol/L (98-107); COR NA(FOR HYPERGLY) 133 mmol/L (136-145); GLUCOSE 125 mg/dL (65-99); MAGNESIUM 2.2 mg/dL (2.0-2.9); SODIUM 132 mmol/L (136-145); TOTAL PROTEIN 5.4 g/dL (6.4-8.2); eGFR NON BLACK RACES > 60 (>60)
[2023-03-30] MEDS ORDERED: NS 1,000 ML IV 1,000 ML IV SCH (09:00)
[2023-03-30] MEDS: COZAAR PO SCH (09:51)
[2023-03-30] MEDS: MILK OF MAGNESIA PO SCH (09:51)
[2023-03-30] MEDS: HYDROCHLOROTHIAZIDE 12.5 MG CAP PO SCH (09:52)
[2023-03-30] MEDS: NORVASC TAB 10 MG PO SCH (09:52)
[2023-03-30] MEDS: NEURONTIN CAP 100 MG PO SCH (09:53)
[2023-03-30] MEDS: SYNTHROID 50 mcg TAB PO SCH (09:53)
[2023-03-30] MEDS: CORDARONE TAB 200 MG PO SCH (09:54)
[2023-03-30] MEDS: LOVENOX INJ 40 MG SYR SC SCH (09:56)
[2023-03-30] MEDS: VITAMIN D3 125 mcg (5,000 UNITS) PO SCH (09:57)
[2023-03-30 10:06] VITALS: PULSE 68
[2023-03-30 13:28] VITALS: BP 136/63; TEMP 98.1; O2SAT 95
[2023-03-30 15:05] VITALS: RESP 20
[2023-03-30] MEDS: ULTRAM PO PRN (15:05)
== END 2023-03-30 15:00 | disposition hospice, home (50) ==
LOC: MED/SURG
PROVIDERS: ADMIT Internal Medicine; ATTEND Internal Medicine
DX: R26.89 Other abnormalities of gait and mobility; I10 Essential (primary) hypertension; R93.89 Abnormal findings on diagnostic imaging of other specified body structures; R25.8 Other abnormal involuntary movements; I25.10 Atherosclerotic heart disease of native coronary artery without angina pectoris; E11.65 Type 2 diabetes mellitus with hyperglycemia; K21.9 Gastro-esophageal reflux disease without esophagitis; Z66 Do not resuscitate; M54.59 Other low back pain; R53.1 Weakness; M25.551 Pain in right hip; M48.54XA Collapsed vertebra, not elsewhere classified, thoracic region, initial encounter for fracture; E78.2 Mixed hyperlipidemia; Z79.4 Long term (current) use of insulin; M54.16 Radiculopathy, lumbar region